=== PATIENT | male | born 1945 | race Caucasian/White ===

== ENCOUNTER 2023-08-22 15:27 | Inpatient (IN) ==
[2023-08-22] MEDS ORDERED: ONDANSETRON INJ 2 MG/ML 2 ML VIAL IV PRN (15:34)
[2023-08-22] MEDS ORDERED: diphenhydrAMINE 50 MG/ML VIAL IV PRN (15:34)
[2023-08-22] MEDS ORDERED: ACETAMINOPHEN 325 MG TAB PO PRN (16:18)
[2023-08-22] MEDS ORDERED: VANCOMYCIN CONSULT ACTIVE PRN (16:18)
[2023-08-22] MEDS: Patient's HEIGHT &/or WEIGHT Needed SCH ×2 (18:28→21:45)
[2023-08-22] MEDS: SODIUM CHLORIDE 0.9% 1,000 ML IV SCH (18:28)
[2023-08-22] MEDS: oxyCODONE HCL IR 5 MG TAB (IMMEDIATE RELEASE) PO PRN (18:37)
--- NOTE | 2023-08-22 20:26 | Consultation ---
Date of Consultation August 22, 2023 Assessment & Plan (1) Infection of prosthetic left knee joint: (2) Bacteremia: Patient is 78 y/o M with PMH HTN, HLD, CKD III, bladder cancer, prostate cancer s/p radiation seen in medical consultation for medical management. Was transfer from [facility] for left knee septic joint, bacteremia on preliminary blood cultures. [facility] ER 2 sets of blood cultures with preliminary readings of Gram-positive cocci in pairs and chains in both bottles. Left knee synovial fluid: Preliminary culture gram-positive cocci in chains. Was given Zosyn, vancomycin at [facility] ER Currently patient hemodynamically stable, afebrile, BP: 132/70, R: 18, O2 sat 97% on RA, and appears appropriately resuscitated Will need to follow outpatient blood cultures and synovial fluid for final results Will repeat blood cultures in am Continue vancomycin, zosyn Gentle IVF Pain management per ortho NPO midnight Ortho planning on wash out tomorrow am CBC, BMP in am ID consult (3) Left wrist pain: Patient complained of left wrist discomfort and some edema Ortho had ordered wrist x-ray. Will need to follow results Monitor wrist/hand for any erythema or signs of infection (4) HTN (hypertension): Stable Continue diltiazem, hold HCTZ and losartan as patient getting procedure tomorrow morning. Reevaluate tomorrow for consideration of resuming (5) HLD (hyperlipidemia): Continue rosuvastatin (6) CKD (chronic kidney disease), stage III: Cr: 1.2 on labs at [facility] ER today. Baseline creatinine ~1.1 Monitor renal functions, avoid nephrotoxic agents when able (7) Prostate cancer: (8) Bladder cancer: Follows with urology DVT Prophylaxis SCDs per ortho Full Code as per discussion with pt Follows with Gladys Peres PA-C for routine care Pt was seen and care coordinated with Dr Dewitt. See addendum Thank you for this consultation. We will follow the patient with you during their hospital stay. You can reach a [facility] via [facility] Supervising Physician Co-Signing Physician Notes I have seen and discussed the case with the collaborating VIRAL. I agree with the above H&P. I have reviewed and confirmed the patients medical history, the findings on physical examination, and the patients diagnosis and treatment plan with Bandar STRATTON and agree with the information documented. In short, Mr. Latham is a 78 year old with history of bilateral knee replacement with polyexchange on 07/[address] Vanegas. He was found to have septic arthritis, and now bacteremia with 2/2 cultures + for anaerobes at [facility]. Patient admitted under ortho for washout planned 08/23 with medicine comanagement consulted. Since knee exchange, patient reports recovering well until 08/21 when he felt fatigued and sickly. He reports a likely fall as he was sitting, then awoke on the ground. The evening was marked by chills and subjective fevers, prompting presentation to [facility]. Of note patient underwent C-Scope on 08/20, as possible seeding source for bacteremia? Physical exam Constitutional: weak, but pleasant gentleman, lethargic on exam HEENT: PERRLA, MMM CV: RRR, no murmur RESP: CTABL GI NTND BS+ MSK Left knee with surgical incision well approximated, diffuse tight edema, small area of erythema at superior aspect on surgical incision Left metacarpal/swelling edema, ROM limited 2/2 pain SKIN hot, dry #Left septic joint, left knee #Sepsis #Bacteremia 2/2 anerobic organisms -[facility] with blood cultures 2/2 + anerobes, follow up in infections -Continue vanc zosyn -Repeat blood culutres in am -Monitor pain in left wrist to ensure no seeding of joint; follow up wrist xray -ID consult placed, appreciate recs Rest of plan as above History of Present Illness Requesting Physician: Dr Vanegas Reason for Consultation: medical management Attending Physician: Calderon Vanegas MD History of Present Illness Patient is 78 y/o M with PMH HTN, HLD, CKD III, bladder cancer, prostate cancer s/p radiation seen in medical consultation for medical management. History obtained from patient as well as outpatient chart review. Patient states history bilateral knee replacement by Dr Vanegas in 2009. States had left knee procedure he thinks possibly 5 to 6 weeks ago. Patient states yesterday was not feeling well and had chills and nausea and felt very fatigued. Reports he stood up and walked and had possible syncopal episode and had a fall yesterday. States this morning continue to not feel well and have chills and had another fall after ambulating to bathroom. He thinks he passed out. Denies feeling dizziness, chest pain, shortness of breath prior to fall but states felt unwell and fatigued with ambulating. States fell onto left knee. Patient reports having left knee pain. Noticed edema to left knee and daughter noted knee was warm to the touch today. He presented to [facility] ER this morning and upon presentation there he had P108, BP 148/65, T: 100.6 F, O2: 98% on RA. Initial labs WBC of 7.15, H/H: 12.4/36.7, PLT: 142, K: 3.5, BUN: 33, Cr: 1.2, glucose: 141, lactate: 1.4. There CXR with no acute cardiopulmonary findings. Left knee x-ray with no periprosthetic fracture, soft tissue swelling anterior knee with small focus soft tissue gas. CT head showed no acute intracranial abnormality. In ER had 2 sets of blood cultures with preliminary readings of Gram-positive cocci in pairs and chains in both bottles. Left knee synovial fluid: Preliminary culture gram-positive cocci in chains. Was given Zosyn, vancomycin. He was transferred to [facility] for Dr Vanegas to perform wash out procedure. Currently patient states feels tired but feels much better than he did this morning. Denies current chills, diaphoresis, N/V/D/C, JERONIMO, dizziness, neck pain, CP, SOB, palpitations, cough, sore throat, rhinorrhea, abdominal pain, paresthesias, extremity edema, rashes, dysuria, hematuria. Has chronic urinary incontinence. Allergies Allergy/AdvReac Type Severity Reaction Status Date / Time No Known Allergies Verified 12/22/09 14:59 Home Medications Medication Instructions Recorded Confirmed Type aspirin 81 mg capsule,delayed 81 mg PO DAILY 08/22/23 08/22/23 History release diltiazem HCl 360 mg 360 mg PO DAILY 08/22/23 08/22/23 History capsule,extended release 24 hr hydrochlorothiazide 25 mg tablet 25 mg PO DAILY 08/22/23 08/22/23 History losartan 100 mg tablet 100 mg PO DAILY 08/22/23 08/22/23 History bbruevrp-eannloly-bwkoi acid 400 1 tab PO DAILY 08/22/23 08/22/23 History mcg-vit K 20 mcg-lycop 300 mcg tablet naproxen 500 mg tablet 500 mg PO BID PRN Pain 08/22/23 08/22/23 History rosuvastatin 10 mg tablet 10 mg PO HS 08/22/23 08/22/23 History Patient History Medical History (Updated 08/22/23 @ 22:42 by Lola Portillo PA-C) Bladder cancer Prostate cancer CKD (chronic kidney disease), stage III HLD (hyperlipidemia) HTN (hypertension) Surgical History (Updated 08/22/23 @ 21:18 by Lola Portillo PA-C) History of cystoscopy Hx of colonoscopy 08/20/23: Dr Cates History of appendectomy History of knee replacement Right knee. 2009. Dr Vangeas Left knee: 2009. Dr Vanegas Family History (Updated 08/22/23 @ 21:16 by Lola Portillo PA-C) Other Cancer Social History (Updated 08/22/23 @ 21:23 by Lola Portillo PA-C) Smoking Status: Never smoker Hx Alcohol Use: No Hx Substance Use: No Preferred Language: Sinhala Communication Ability: Effective Apparel Rental Clerk Required: No Beliefs That Will Affect Care: None Current Living Situation: Spouse Feels Safe at Home: Yes Safety Concerns: Feels Safe At This Time Physical Exam Physical Exam: PE per Dr Dewitt Results & Data Vital Signs (Past 12 Hours) Vital Signs Temp Resp BP Pulse Ox O2 Del Method 08/22/23 21:20 36.6 C 18 132/70 97 Room Air Intake and Output 08/22/23 08/22/23 08/22/23 06:59 14:59 22:59 Other: Weight 82.2 kg Weight Measurement Method Built in [facility] Patient Weight 08/23/23 06:59 Weight 82.2 kg
[2023-08-22 20:57] LABS: Creatinine Clr Calc Pharmacy 44.2 ml/min; Est GFR (African American) 55.5 ml/min; Est GFR (Non-African American) 47.9 ml/min
[2023-08-22] MEDS: DOCUSATE SODIUM 100 MG CAP PO SCH (21:19)
[2023-08-22] MEDS ORDERED: VANCOMYCIN HCL 1,250 MG in SODIUM CHLORIDE 0.9% 250 ML IV SCH (22:00)
--- OUTSIDE RECORDS SUMMARY | 2023-08-22 22:25 | External Medical Summary ---
Author Name Unknown Address Unknown Organization K1F:LABORATORY [facility] - [address] [place] [address] Laboratory Report Ordering Provider Test Date Status JENSEN CRUZ 08/22/2023 08:16:00 Final Observation Date Value Abnormality Reference (Units ) Status Troponin T 08/22/2023 08:16:00 41 Above high normal < =22 (ng/L) Final Performing Location LABORATORY [facility] - [address] [place] [address]
--- OUTSIDE RECORDS SUMMARY | 2023-08-22 22:25 | External Medical Summary ---
Author Name Unknown Address Unknown Organization K1F:LABORATORY [facility] - [address] [place] [address] Laboratory Report Ordering Provider Test Date Status JENSEN CRUZ 08/22/2023 09:05:51 Final Reference ranges are for rolando nts without prior surgery. Some reference ranges and other method performance specifications have not been established for this fluid. The test results must be integrated into the clinical context for interpretation.
null Observation Date Value Abnormality Reference (Units ) Status Color of Body fluid 08/22/2023 09:05:51 Red Abnormal Straw, Yellow, Colorless Final Clarity of Body fluid 08/22/2023 09:05:51 Turbid Abnormal Clear Final Leukocytes [#/volume] in Synovial fluid 08/22/2023 09:05:51 [address] Above high normal 0-180 (cells/uL) Final Erythrocytes [#/volume] in Synovial fluid 08/22/2023 09:05:51 [address] Above high normal <2000 (cells/uL) Final Performing Location LABORATORY [facility] - [address] [place] [address]
--- OUTSIDE RECORDS SUMMARY | 2023-08-22 22:25 | External Medical Summary ---
Author Name Unknown Address Unknown Organization K1F:LABORATORY [facility] - [address] [place] [address] Laboratory Report Ordering Provider Test Date Status JENSEN CRUZ 08/22/2023 08:16:00 Final Exclude Heart Failure: <300 pg/mL
Diagnose Heart Failure:
Age <50 yr: >450 pg/mL
50-75 yr: >900 pg/mL
>75 yr: >1800 pg/mL
GFR is 30-59 mL/min: >1200 pg/mL or Age- adjusted values
GFR <30 mL/min: do not use, not reliable

Prognostic threshold: 1000 pg/mL Observation Date Value Abnormality Reference (Units ) Status BNP, Pro-hormone 08/22/2023 08:16:00 1150 Above high no rmal <300 (pg/mL) Final Performing Location LAB[facility]ATORY [facility] - [address] [place] [address]
--- OUTSIDE RECORDS SUMMARY | 2023-08-22 22:25 | External Medical Summary ---
Author Name Unknown Address Unknown Organization K1F:LABORATORY [facility] - [address] [place] [address] Laboratory Report Ordering Provider Test Date Status JENSEN CRUZ 08/22/2023 08:16:00 Final Less than 0.5 ng/mL: Low ris k for progression to sepsis. Review patients condition for localized infections.

0.5 to 2.0 ng/mL: Intermediate risk for progresion to sepsis. Review underlying conditions. Recommend repeat PCT after 6 hours has elapsed.

Greater than 2.0 ng/mL: high risk for progression to sepsis unless other causes are known. Observation Date Value Abnormality Reference (Units ) Status Procalcitonin [Mass/volume] in Serum or Plasma by Immunoassay 08/22/2023 08:16:00 3.94 Above high normal <0.10 (ng/mL) Final Performing Location LABORATORY [facility] - [address] [place] [address]
--- OUTSIDE RECORDS SUMMARY | 2023-08-22 22:25 | External Medical Summary ---
Author Name Unknown Address Unknown Organization K1F:LABORATORY [facility] - [address] [place] [address] Laboratory Report Ordering Provider Test Date Status JENSEN CRUZ 08/22/2023 08:16:00 Final Observation Date Value Abnormality Reference (Units ) Status CRP, low-sensitivity 08/22/2023 08:16:00 180 Above high normal <=5 (mg/L) Final Performing Location LAB[facility]ATORY [facility] - [address] [place] [address]
--- OUTSIDE RECORDS SUMMARY | 2023-08-22 22:25 | External Medical Summary ---
Author Name Unknown Address Unknown Organization K1F:LABORATORY [facility] - [address] [place] [address] Laboratory Report Ordering Provider Test Date Status JENSEN CRUZ 08/22/2023 08:16:00 Final Observation Date Value Abnormality Reference (Units ) Status CK 08/22/2023 08:16:00 220 39-308 (U/ L) Final Performing Location LABORATORY [facility] - [address] [place] [address]
--- OUTSIDE RECORDS SUMMARY | 2023-08-22 22:25 | External Medical Summary ---
Author Name Unknown Address Unknown Organization K1F:LABORATORY [facility] - [address] [place] [address] Laboratory Report Ordering Provider Test Date Status JENSEN CRUZ 08/22/2023 08:16:00 Final Observation Date Value Abnormality Reference (Units ) Status WBC, Total 08/22/2023 08:16:00 7.15 4.00-10.80 (K/uL) Final RBC 08/22/2023 08:16:00 4.13 4.50-5.25 (M/uL) Final Hemoglobin 08/22/2023 08:16:00 12.4 Below low normal 14.0-16.8 (g/dL) Final HCT 08/22/2023 08:16:00 36.7 Below low normal 40.0-48.4 (%) Final MCV 08/22/2023 08:16:00 88.9 82.0-99.5 (fL) Final MCH 08/22/2023 08:16:00 30.0 27.0-34.0 (pg) Final MCHC 08/22/2023 08:16:00 33.8 32.0-36.0 (g/dL) Final RDW 08/22/2023 08:16:00 13.1 11.5-15.5 (%) Final Platelets 08/22/2023 08:16:00 142 140-400 (K/uL) Final MPV 08/22/2023 08:16:00 9.9 6.6-11.1 (fL) Final Nucleated erythrocytes/100 leukocytes [Ratio] in Blood by Automated count 08/22/2023 08:16:00 0 <=0 (/100 WBCs) Final Performing Location LABORATORY [facility] - [address] [place] [address]
--- OUTSIDE RECORDS SUMMARY | 2023-08-22 22:25 | External Medical Summary ---
Author Name Unknown Address Unknown Organization K1F:LABORATORY [facility] - [address] [facility] [place] [address] Laboratory Report Ordering Provider Test Date Status JENSEN CRUZ 08/22/2023 08:16:00 Final Observation Date Value Abnormality Reference (Units ) Status SYNC LEUKOCYTES IN BLOOD BY AUTOMATED COUNT 08/22/2023 08:16:00 7.15 4.00-10.80 (K/uL) Final Segs 08/22/2023 08:16:00 93.1 Above high normal 40.0-75.0 (%) Final Lymphs % 08/22/2023 08:16:00 2.5 Below low normal 18.0-42.0 (%) Final Monos 08/22/2023 08:16:00 3.9 1.0-11.0 (%) Final Eosinophils 08/22/2023 08:16:00 0.0 0.0-6.0 (%) Final Basos 08/22/2023 08:16:00 0.1 0.0-2.0 (%) Final Immature Granulocyte, Percent 08/22/2023 08:16:00 0.4 0.0-2.0 (%) Final Absolute Segs 08/22/2023 08:16:00 6.65 1.80-7.70 (K/uL) Final Lymphs, absolute 08/22/2023 08:16:00 0.18 Below low normal 1.00-4.80 (K/ul) Final Monos, Abs 08/22/2023 08:16:00 0.28 0.00-1.10 (K/uL) Final Eos, Abs 08/22/2023 08:16:00 0.00 0.00-0.70 (K/uL) Final Basos, Abs 08/22/2023 08:16:00 0.01 0.00-0.20 (K/uL) Final Immature Granulocytes, Number 08/22/2023 08:16:00 0.03 0.00-0.20 (K/uL) Final Performing Location LABORATORY [facility] - [address] [place] [address]
--- OUTSIDE RECORDS SUMMARY | 2023-08-22 22:25 | External Medical Summary | Summary of Care ---
Author Name Unknown Organization [facility] Address [address] [place] [address] Phone [phone] Care Team Providers Care Manager In Home Name Role Phone Gladys Peres PA-C Primary Care Provider Reason for Visit * Auth/Cert Specialty Diagnoses / Procedures Referred By Jose Guadalupe t Referred To Contact Diagnoses Encounter for screening colonoscopy Encounter for screening colonoscopy [Z12.11] Procedures COLONOSCOPY, DIAGNOSTIC (RECTUM) COLONOSCOPY FLEXIBLE PROXIMAL DIAGNOSTIC Referral ID Status Reason Start Date Expiration Date Visits Re quested Visits Authorized [id number] Encounter Details Date Type Department Care Team (Latest Contact Info) Description 08/20/2023 8:27 AM EST - 08/20/2023 10:18 AM EST Hospital Encounter [facility]O [facility] End[facility] [address] [phone] Marta Cates DO [address] [place] [id number] Colonoscopy Discharge Disposition: Home - Self Care Allergies No known active allergiesdocumented as of this encounter (statuses as of 08/20/2023) Medications Medication Sig Dispensed Refills Start Date End Date Status Diclofenac Sodium (VOLTAREN) 1 % gel apply 2gm topically to affected area three times a day 2 Tube 5 04/24/20 17 Active Multiple Vitamins-Minerals (MULTIVITAMIN ADULT) TABS 0 Active Aspirin 81 MG Oral Tablet Delayed Release Take 1 Tablet by mouth in the morning. Starting 09/04/2019. 0 12/31/20 20 Active hydroCHLOROthiazide 25 MG Oral Tablet (Hydrodiuril)Indication s:HTN, goal below 150/90 Take 1 Tablet by mouth in the morning. 90 Tablet 3 10/29/19 Active Naproxen 500 MG Oral Tablet (Naprosyn) TAKE ONE TABLET BY MOUTH TWICE A DAY NEEDED FOR PAIN. TAKE WITH FOOD. 180 Tablet 1 01/21/20 Active dilTIAZem HCl ER Coated Beads 360 MG Oral Capsule Extended Release 24 HourIndications:HTN, goal below 150/90 TAKE ONE CAPSULE BY MOUTH EVERY MORNING ;DO NOT CUT, CRUSH, OR CHEW 90 Capsule 3 04/23/20 Active Losartan Potassium 100 MG Oral Tablet (Cozaar)Indications:HTN , goal below 150/90 TAKE ONE TABLET BY MOUTH EVERY MORNING 90 Tablet 3 04/23/20 Active Rosuvastatin Calcium 10 MG Oral Tablet (Crestor)Indications:Pu re hypercholesterolemia TAKE ONE TABLET BY MOUTH AT BEDTIME FOR HIGH CHOLESTEROL 90 Tablet 1 05/19/20 Active Naproxen 500 MG Oral Tablet (Naprosyn) TAKE ONE TABLET BY MOUTH TWICE A DAY NEEDED FOR PAIN. TAKE WITH FOOD. 180 Tablet 3 01/11/20 22 2022 Discontinued(R efill) dilTIAZem HCl ER Coated Beads 360 MG Oral Capsule Extended Release 24 Hour (Cardizem CD)Indications:HTN, goal below 150/90 Take by mouth 1 Capsule in the morning. do not cut, crush or chew. 90 Capsule 3 04/24/20 22 2022 Discontinued Rosuvastatin Calcium 10 MG Oral Tablet (Crestor)Indications:Pu re hypercholesterolemia Take by mouth 1 Tablet before bedtime. For cholesterol.. 90 Tablet 3 04/24/20 22 2022 Discontinued Losartan Potassium 100 MG Oral Tablet (Cozaar)Indications:HTN , goal below 150/90 Take by mouth 1 Tablet in the morning. 90 Tablet 3 04/24/20 22 2022 Discontinued Oxybutynin Chloride ER 10 MG Oral Tablet Extended Release 24 Hour (Ditropan XL) Take one tablet by mouth the night prior to treatment. 0 05/21/20 22 2022 Discontinued(P atient preference/dis continuation) Oxybutynin Chloride 5 MG Oral Tablet (Ditropan) Take one tablet by mouth one hour prior to treatment. 0 05/21/20 22 2022 Discontinued(P atient preference/dis continuation) documented as of this encounter (statuses as of 08/20/2023) Active Problems Problem Noted Date Diagnosed Date Right inguinal hernia 10/29/2022 Prediabetes 09/10/2021 Overview: Per Prediabetes protocol Chronic kidney disease, stage 3a 03/12/2021 Overview: Per CKD protocol Mitral valve insufficiency and aortic valve insu fficiency 03/19/2017 Transitional cell bladder cancer 08/27/2016 Lumbar degenerative disc disease 02/16/2015 Pure hypercholesterolemia History of prostate cancer HTN, goal below 150/90 documented as of this encounter (statuses as of 08/20/2023) Resolved Problems Problem Noted Date Diagnosed Date Resolved Date Syncope and collapse 05/23/2019 019 Gross hematuria 05/21/2019 05/24/[address] 05/21/201905/04 Syncopal episodes 05/21/2019 05/23/2019 Malignant neoplasm of bladder 03/10/2018 03/10/2018 MINE (acute kidney injury) 01/17/2017 Syncope due to orthostatic hypotension 01/17/2017 09/10/2017 Dehydration 01/17/2017 09/10/2017 documented as of this encounter (statuses as of 08/20/2023) Immunizations Name Administration Dates Next Due COVID-19 mRNA, LNP-s, No Pre serve, 2-Dose Series (Car reviews) 06/23/2021,11/21/2020,10/26/2020 Pneumococcal Conjugate Vacc, 13 Valent (Prevnar) 02/22/2016 Pneumococcal Polysaccharide PPV23 (Pneumovax) 03/05/2017 Season Influenza, Quad, PF, Adjuvanted, 65+ Yrs, IM (FLUAD) 08/06/2021 Seasonal Influenza, PF, 6 M & above, IM , (FluLaval or Fluzone) 09/10/2018 Seasonal Influenza, Quadriva lent Hd (Fluzone Hd) 06/03/2023,08/06/2021 Seasonal Influenza, Quadriva lent Hd, 65+ Yrs 09/10/2018 Seasonal Influenza, Quadriva lent, No Preserve, IM 06/07/2020 Seasonal Influenza, Trivalen t, Adjuvanted, 65+ yrs 05/19/2019 TDAP (age 11 and older)(Adacel) 02/24/2015 02/24/2025 Varicella Zoster Vaccine (Adult) 02/22/2016 Zoster Vaccine Recombinant (Shingrix) 10/11/2020 ,04/26/2020 documented as of this encounter Social History Tobacco Use Types Packs/Day Years Used Date Smoking Tobacco: Never Smokeless Tobacco: Never Alcohol Use Standard Drinks/Week Comments No 0 (1 standard drink = 0.6 oz pur e alcohol) PHQ-2 Answer Date Recorded PHQ Adult Total Score 0 06/27/2023 Hunger Vital Sign Answer Date Recorded Within the past 12 months, y ou worried that your food would run out before you got the money to buy more. Never true 10/29/19 23 Within the past 12 months, t he food you bought just didn't last and you didn't have money to get more. Never true 10/29/2022 Sex and Gender Information Value Date Recorded Sex Assigned at Male 03/15/2019 10:44 AM EDT Gender Identity Male 03/15/2019 10:44 AM EDT Sexual Orientation Straight 03/15/2019 10 :44 AM EDT Job Start Date Occupation Industry Not on file Not on file Not on file documented as of this encounter Last Filed Vital Signs Vital Sign Reading Time Taken Comments Blood Pressure 169/89 08/20/2023 10:08 AM EST Pulse 73 08/20/2023 10:08 AM EST Temperature 36.2 C (97.2 F) 08/20/2023 9:38 AM ES T Respiratory Rate 16 08/20/2023 10:08 AM EST Oxygen Saturation 97% 08/20/2023 10:08 AM EST Inhaled Oxygen Concentration - - Weight 84.8 kg (187 lb) 08/07/2023 1:32 PM EST Height 170.2 cm (5' 7") 08/07/2023 1:32 PM EST Body Mass Index 29.29 08/07/2023 1:32 PM EST documented in this encounter Functional Status Functional Status Response Date of Assess ment Are you deaf or do you have serious difficulty h earing? No 05/21/2019 Are you blind or do you have serious difficulty seeing, even when wearing glasses? No 05/21/2019 Do you have serious difficul ty walking or climbing stairs? (5 years old or older) No 08/28/2020 Do you have difficulty dress ing or bathing? (5 years old or older) No 05/21/2019 Because of a physical, menta l, or emotional condition, do you have difficulty doing errands alone such as visiting a doctor s office or shopping? (15 years old or older) No 05/21/20 19 Cognitive Status Response Date of Assessm ent Because of a physical, menta l, or emotional condition, do you have serious difficulty concentrating, remembering, or making decisions? (5 years old or older) No 05/21/2019 documented as of this encounter H&P Notes * Marta Cates, DO - 08/20/2023 8:56 AM EST Endoscopy Pre-Procedure Assessment Name: Vincent Latham Jr. Date: 08/20/2023 Time: 8:56 AM Procedure: Colonoscopy; with Indication(s) of colon polyp surveillance Endoscopy Pre-Procedure Assessment: Prior to the procedure, the patient was identified. The patient's history, medications and allergies were reviewed as per the Anesthesia Assessment. The patient is competent. The risks and benefits of the proposed procedure and the planned sedation were discussed with the patient. All questions were answered and informed consent for the procedure was obtained. This patient has undergone a preprocedural evaluation. A determination has been made to proceed with the planned procedure under [facility] procedural guidelines and the [facility] Non-Emergent, Elective Medical Services and Treatment Recommendations (published on 12-07-19). The community and hospital prevalence of COVID-19 has been discussed as well as this patient's specific risks associated with SARS-CoV-19 infection. Based upon the clinical acuity and patient-specific care considerations, this procedure is deemed a Tier II - Intermediate acuity treatment or service with either progression or the threat of progressive disease related to the delay in treatment. Not providing the service has the potential for increasing morbidity or mortality. BP 177/82 | Pulse 78 | Temp 36.2 C (97.2 F) (Temporal Artery) | Resp 14 | Ht 1.702 m (5' 7") | Wt 84.8 kg (187 lb) | SpO2 95% | BMI 29.29 kg/m | BSA 2 m Prior to Admission medications Medication Sig Last Dose Discont. Rosuvastatin Calcium 10 MG Oral Tablet (Crestor) TAKE ONE TABLET BY MOUTH AT BEDTIME FOR HIGH CHOLESTEROL 08/19/2023 dilTIAZem HCl ER Coated Beads 360 MG Oral Capsule Extended Release 24 Hour TAKE ONE CAPSULE BY MOUTH EVERY MORNING ;DO NOT CUT, CRUSH, OR CHEW 08/19/2023 Losartan Potassium 100 MG Oral Tablet (Cozaar) TAKE ONE TABLET BY MOUTH EVERY MORNING 08/19/2023 Naproxen 500 MG Oral Tablet (Naprosyn) TAKE ONE TABLET BY MOUTH TWICE A DAY NEEDED FOR PAIN. TAKE WITH FOOD. 08/19/2023 hydroCHLOROthiazide 25 MG Oral Tablet (Hydrodiuril) Take 1 Tablet by mouth in the morning. 08/19/2023 Aspirin 81 MG Oral Tablet Delayed Release Take 1 Tablet by mouth in the morning. Starting 09/04/2019. 08/19/2023 Multiple Vitamins-Minerals (MULTIVITAMIN ADULT) TABS 08/19/2023 Diclofenac Sodium (VOLTAREN) 1 % gel apply 2gm topically to affected area three times a day 08/19/2023 Acetaminophen 500 MG Oral Tablet (Tylenol) Take 2 Tablets by mouth every 4 hours as needed. Review of patient's allergies indicates: No Known Allergies Physical Exam: Mental Status Examination: alert and oriented. General: nad, calm Airway Examination: normal oropharyngeal airway and neck mobility. Respiratory Examination: symmetrical excursion Abd:soft/ntd ASA Grade: III - A patient with severe systemic disease. After reviewing the risks and benefits, the patient was deemed in satisfactory condition to undergothe procedure. The anesthesia plan was to use general anesthesia. Marta Cates DO Gastroenterology and Hepatology 08/20/2023 documented in this encounter Procedure Notes * Gladys Peres PA-C - 08/20/2023 8:57 AM ESTAssociated Order(s): COLONOSCOPY [facility] Patient Name: Vincent Latham Procedure Date: 08/20/2023 8:57 AM Date of : 1945 Admit Type: Outpatient Note Status: Finalized Date of : 1945 Admit Type: Outpatient Age: 78 Room: Endo 1 Gender: Male Note Status: Finalized Procedure: Colonoscopy Indications: High risk colon cancer surveillance: Personal history of colonic polyps Providers: Marta Cates DO (Doctor) Patient Profile: This is a 78 year old male. Refer to note in patient chart for documentation of history and physical. Referring MD: [place] Medicines: General Anesthesia Complications: No immediate complications. Procedure: Pre-Anesthesia Assessment: - Prior to the procedure, a History and Physical was performed, and patient medications and allergies were reviewed. The risks and benefits of the procedure and the sedation options and risks were discussed with the patient. All questions were answered and informed consent was obtained. Patient identification and proposed procedure were verified by the physician, the nurse and the gage designer in the procedure room. Mental Status Examination: alert and oriented. Airway Examination: Mallampati Class II (the uvula but not tonsillar pillars visualized). Respiratory Examination: clear to auscultation. CV Examination: RRR, no murmurs, no S3 or S4. Prophylactic Antibiotics: The patient does not require prophylactic antibiotics. Prior Anticoagulants: The patient has taken no anticoagulant or antiplatelet agents except for aspirin. ASA Grade Assessment: III - A patient with severe systemic disease. After reviewing the risks and benefits, the patient was deemed in satisfactory condition to undergo the procedure. The anesthesia plan was to use general anesthesia. Immediately prior to administration of medications, the patient was re-assessed for adequacy to receive sedatives. The physical status of the patient was re-assessed after the procedure. After I obtained informed consent, the scope was passed under direct vision. All instruments were visually inspected immediately before and after removal from the patient to ensure they are fully intact. Throughout the procedure, the patient's blood pressure, pulse, and oxygen saturations were monitored continuously. The colonoscopy was performed without difficulty. The patient tolerated the procedure well. The quality of the bowel preparation was good. The PCF-H180AL Colonoscope ([id number]) was introduced through the anus and advanced to the cecum, identified by appendiceal orifice and ileocecal valve. Findings & Specimens: The perianal and digital rectal examinations were normal. Multiple small and large-mouthed diverticula were found in the left colon. There was narrowing of the colon in association with the diverticular opening. The retroflexed view of the distal rectum and anal verge was normal and showed no anal or rectal abnormalities. Impression: - Diverticulosis in the left colon. There was narrowing of the colon in association with the diverticular opening. - No specimens collected. Recommendation: - Patient has a contact number available for emergencies. The signs and symptoms of potential delayed complications were discussed with the patient. Return to normal activities tomorrow. Written discharge instructions were provided to the patient. - The patient will be observed post-procedure, until all discharge criteria are met. - Discharge patient to home (with escort). - Resume previous diet. - Continue present medications. - Repeat colonoscopy for surveillance not recommended given patient's age. Marta Cates DO 08/20/2023 9:35:55 AM This report has been signed electronically. Estimated Blood Loss: Estimated blood loss: none. documented in this encounter Nursing Notes * Daylin Schulte RN - 08/20/2023 10:12 AM EST To car with staff and * Daylin Schulte RN - 08/20/2023 10:11 AM EST Dressing at bedside. Pt BP elevated and will take meds when get home * Daylin Schulte RN - 08/20/2023 9:51 AM EST Reviewed discharge instructions and procedure results with pt. Med list and discharge instructions given. Verbalizes understanding and denies any other questions or concerns. Sat up at side of stretcher. * Daylin Schulte RN - 08/20/2023 9:49 AM EST HOB elevated, tolerating drink Glasses returned to patient.Glasses returned to pt * Daylin Schulte RN - 08/20/2023 9:40 AM EST Pt received in recovery S/P colonscopy. Pt awake and resting on left side. Pt denies pain. Abd softReport received from Melba ORNELAS. VSS. Airway patent. * Melba Gorman RN - 08/20/2023 9:34 AM EST Colonoscopy completed. Abdominal pressure given. Pt nestor procedure well. Sedated by SEQUINS SPOOLER. See anesthesia record for VS and medications given. Abd soft. Airway patent. Pt to recovery on L side with HOBelevated. Report to recovery room nurse. Bedside cleaning done. * Lizz Jackson RN - 08/20/2023 8:34 AM EST Nursing assessment completed. Pt awaiting procedure. Declines any needs. Anesthesia made aware pt ready to be seen. documented in this encounter Plan of Treatment Upcoming Encounters Date Type Department Care Team (Late st Contact Info) Description 02/12/2024 7:40 AM EDT Office Visit [facility] [address] [place] [id number] Gladys Peres PA-C [address] [place] [id number] Scheduled Procedures Name Priority Associated Diagnoses Date/Ti me COLONOSCOPY FLEXIBLE PROXIMAL DIAGNOSTIC Encounter for screening colonoscopy 08/20/2023 9:05 AM EST Health Maintenance Due Date Last Done Comments COVID-19 Vaccine ( season) 2023 06/23/2021, 11/21/2020, 10/26/2020 GFR 02/11/2024 08/12/2023, 09/2022, 06/20/2023, Additional history exists Albumin/Creatinine Ratio 06/03/2024 06/03/2023 Depression Screening 06/27/2024 06/27/2023 CKD HGB USE SMARTSET 32886 08/01/202408/01, 08/01/2023, 06/20/2023, Additional history exists CKD PHOS USE SMARTSET 62595 08/01/202409/2022, 10/23/2022, 09/04/2021 HbA1c 08/01/2024 08/01/2023, 10/03, 09/04/2021, Additional history exists DTaP,Tdap,and Td Vaccines (2 - Td or Tdap) 02/24/2025 02/24/2015 COLONOSCOPY-EVERY 5 YRS AGES 18-100 08/20/2028 08/20/2023, 10/01/2017, 03/31/2012 Pneumococcal Vaccine: 65+ Years Completed 03/05/2017, 02/22/2016 Zoster Vaccines Completed 10/11/2020, 04/02, 02/22/2016 Influenza Vaccine (FLU shot) Completed 10/2022, 08/06/2021, 08/06/2021, Additional history exists GARDASIL-HPV IMMUNIZATION SERIES Aged Out No longer eligible based on patient's age to complete this topic Hepatitis B Aged Out No longer eligi ble based on patient's age to complete this topic MENINGOCOCCAL (MENACTRA/MENVEO) Aged Out No longer eligible based on patient's age to complete this topic documented as of this encounter Medical Devices Not on filedocumented as of this encounter Procedures Procedure Name Priority Date/Time Associated Diagnosis Comments COLONOSCOPY 08/20/2023 8:57 AM EST documented in this encounter Results * COLONOSCOPY (08/20/2023 8:57 AM EST) 08/20/2023 8:57 AM EST Narrative Procedure Note Gladys Peres PA-C - 08/20/2023 8:57 AM EST [facility] Patient Name: Vincent Latham Procedure Date: 08/20/2023 8:57 AM Date of : 1945 Admit Type: Outpatient Note Status:Finalized Date of : 1945 Admit Type: Outpatient Age: 78 Room: Endo 1 Gender: Male Note Status: Finalized Procedure: Colonoscopy Indications: High risk colon cancer surveillance: Personalhistory of colonic polyps Providers: Marta Cates DO (Doctor) Patient Profile: This is a 78 year old male. Refer to note inpatient chart for documentation of history and physical. Referring MD: [place] Clinton Medicines: General Anesthesia Complications: No immediate complications. Procedure: Pre-Anesthesia Assessment: - Prior to the procedure, a History and Physicalwas performed, and patient medications and allergies were reviewed. The risksand benefits of the procedure and the sedation options and risks were discussed withthe patient. All questions were answered and informed consent was obtained. Patientidentification and proposed procedure were verified by the physician, the nurseand the gage designer in the procedure room. Mental Status Examination: alertand oriented. Airway Examination: Mallampati Class II (the uvula but not tonsillarpillars visualized). Respiratory Examination: clear to auscultation. CV Examination:RRR, no murmurs, no S3 or S4. Prophylactic Antibiotics: The patient does notrequire prophylactic antibiotics. Prior Anticoagulants: The patient has taken noanticoagulant or antiplatelet agents except for aspirin. ASA Grade Assessment: III - Apatient with severe systemic disease. After reviewing the risks and benefits,the patient was deemed in satisfactory condition to undergo the procedure.The anesthesia plan was to use general anesthesia. Immediately prior toadministration of medications, the patient was re-assessed for adequacy to receive sedatives.The physical status of the patient was re-assessed after the procedure. After I obtained informed consent, the scope waspassed under direct vision. All instruments were visually inspected immediatelybefore and after removal from the patient to ensure they are fully intact. Throughout the procedure, the patient's bloodpressure, pulse, and oxygen saturations were monitored continuously. The colonoscopy wasperformed without difficulty. The patient tolerated the procedure well. The qualityof the bowel preparation was good. The PCF-H180AL Colonoscope ([id number]) was introducedthrough the anus and advanced to the cecum, identified by appendiceal orifice andileocecal valve. Findings & Specimens: The perianal and digital rectal examinations were normal. Multiple small and large-mouthed diverticula were found in the leftcolon. There was narrowing of the colon in association with the diverticular opening. The retroflexed view of the distal rectum and anal verge was normaland showed no anal or rectal abnormalities. Impression: - Diverticulosis in the left colon. There wasnarrowing of the colon in association with the diverticular opening. - No specimens collected. Recommendation: - Patient has a contact number available foremergencies. The signs and symptoms of potential delayed complications were discussed withthe patient. Return to normal activities tomorrow. Written discharge instructionswere provided to the patient. - The patient will be observed post-procedure,until all discharge criteria are met. - Discharge patient to home (with escort). - Resume previous diet. - Continue present medications. - Repeat colonoscopy for surveillance notrecommended given patient's age. Marta Cates, 08/20/2023 9:35:55 AM This report has been signed electronically. Estimated Blood Loss: Estimated blood loss: none. Gladys Peres PA-C [facility] documented in this encounter Administered Medications Inactive Administered Medications - up to 3 most recent administrations Medication Order MAR Action Action Date Dose Rate Site isolyte-S pH 7.4 infusion Intravenous, at 75 mL/hr, for Outpatient patient Plasma-LYTE 148, isolyte-S, and isolyte-S pH 7.4 are considered equivalent - including for MAR barcode scanning., CONTINUOUS, Starting on Fri08/20/23 at 0900, Until Fri08/20/23 at 1419, Pre-Op Continue from Pre-Op 08/20/2023 9:05 AM EST 250 mL/hr New Bag 08/20/2023 8:45 AM EST 75 mL/hr 75 mL/hr documented in this encounter Active and Recently Administered Medications Times are shown in EST. Continuous Medication Order 08/18/2023 08/19/2023 08/20/2023 isolyte-S pH 7.4 infusion Intravenous, at 75 mL/hr, for Outpatient patient Plasma-LYTE 148, isolyte-S, and isolyte-S pH 7.4 are considered equivalent - including for MAR barcode scanning., CONTINUOUS, Starting on Fri08/20/23 at 0900, Until Fri08/20/23 at 1419, Pre-Op 0845 (New Bag - Prov ider: Lizz Jackson RN)0905 (Continue from Pre-Op - Provider: Shari Elam CRNA)0933 (Stopped - Provider: Shari Elam CRNA) documented in this encounter Advance Directives Latest Code Status on File Code Status Date Activated Date Inactivated Comments Full Code 08/27/2020 3:43 PM 08/31/2020 7:27 PM Thi s order reflects the patients wishes and were consensually agreed upon. Question Answer Comments Discussion of Advance Directives occurred with: Not Discussed Does the patient have a Living Will? Yes, not currently available Does the patient have Health Care Power of Drop Wirer? Yes, not currently available Code Status History Code Status Date Activated Date Inactivated Comments Full Code 05/21/2019 5:39 PM 05/23/2019 5:52 PM This order reflects the patients wishes and were consensually agreed upon. Question Answer Comments Discussion of Advance Directives occurred with: Patient Full Code 02/05/2018 6:44 AM 02/05/2018 5:47 PM This or araseli reflects the patients wishes and were consensually agreed upon. Full Code 03/21/2017 11:11 AM 03/21/2017 5:53 PM This order reflects the patients wishes and were consensually agreed upon. Full Code 03/21/2017 7:58 AM 03/21/2017 11:11 AM This order reflects the patients wishes and were consensually agreed upon. Care Teams Manager In Home Relationship Specialty Start Date End Date Gladys Peres PA-C [address] [place] [phone] PCP - General Physician Registration Scheduling Specialist 02/26/21 documented as of this encounter
--- OUTSIDE RECORDS SUMMARY | 2023-08-22 22:25 | External Medical Summary ---
Author Name Unknown Address Unknown Organization K1F:LABORATORY [facility] - [address] [place] [address] Laboratory Report Ordering Provider Test Date Status JENSEN CRUZ 08/22/2023 09:05:51 Final Observation Date Value Abnormality Reference (Units) Status Color of Body fluid 08/22/2023 09:05:51 Red Abnormal Straw, Yellow, Colorless Final Clarity of Body fluid 08/22/2023 09:05:51 Turbid Abnormal Clear Final Crystals, Synovial Fluid 08/22/2023 09:05:51 Few Calcium Pyrophosphate Dihydrate Crystals Present Abnormal No Crystals Present Final Crystals, Synovial Fluid 08/22/2023 09:05:51 Few Calcium Pyrophosphate Dihydrate Crystals Present Abnormal No Crystals Present Final CELLULAR LOCATION OF CRYSTALS 08/22/2023 09:05:51 Extracellular Crystals Present Abnormal No Crystals Present Final Performing Location LABORATORY [facility] - [address] [place] [address]
--- OUTSIDE RECORDS SUMMARY | 2023-08-22 22:25 | External Medical Summary ---
Author Name Unknown Address Unknown Organization K1F:LABORATORY [facility] - [address] [place] [address] Laboratory Report Ordering Provider Test Date Status JENSEN CRUZ 08/22/2023 09:05:51 Final Reference ranges are for rolando nts without prior surgery. Some reference ranges and other method performance specifications have not been established for this fluid. The test results must be integrated into the clinical context for interpretation. Observation Date Value Abnormality Reference (Units ) Status SYNC TOTAL NUCLEATED CELLS, SYNOVIAL 08/22/2023 09:05:51 05341 (cells/uL) Final Segmented neutrophils/100 leukocytes in Synovial fluid 08/22/2023 09:05:51 98 Above high normal 0-25 (%) Final Lymphocytes/100 leukocytes in Synovial fluid 08/22/2023 09:05:51 1 0-78 (%) Final Monocytes/100 leukocytes in Synovial fluid 08/22/2023 09:05:51 1 0-71 (%) Final SEGMENTED NEUTROPHILS (1000/UG) IN SYNOVIAL FLUID ABS 08/22/2023 09:05:51 74176.64 (cells/uL) Final LYMPHOCYTES (1000/UG) IN SYNOVIAL FLUID ABS 08/22/2023 09:05:51 429.18 (cells/uL) Final MONOCYTES(1000/UG) IN SYNOVIAL FLUID ABS 08/22/2023 09:05:51 429.18 (cells/uL) Final Performing Location LABORATORY [facility] - [address] [facility] [address] [place] [address]
--- OUTSIDE RECORDS SUMMARY | 2023-08-22 22:25 | External Medical Summary ---
Author Name Unknown Address Unknown Organization K1F:LABORATORY [address] [place] [address] Laboratory Report Ordering Provider Test Date Status JENSEN CRUZ 08/22/2023 08:21:55 Final ADMITTED patient Observation Date Value Abnormality Reference (Units ) Status Adenovirus DNA [Presence] in Nasopharynx by KYLE with non-probe detection 08/22/2023 08:21:55 Negative Negative Final Human coronavirus 229E RNA [Presence] in Nasopharynx by KYLE with non-probe detection 08/22/2023 08:21:55 Negative Negative Final Human coronavirus HKU1 RNA [Presence] in Nasopharynx by KYLE with non-probe detection 08/22/2023 08:21:55 Negative Negative Final Human coronavirus NL63 RNA [Presence] in Nasopharynx by KYLE with non-probe detection 08/22/2023 08:21:55 Negative Negative Final Human coronavirus OC43 RNA [Presence] in Nasopharynx by KYLE with non-probe detection 08/22/2023 08:21:55 Negative Negative Final SARS-CoV-2 (COVID-19) RNA [Presence] in Nasopharynx by KYLE with non-probe detection 08/22/2023 08:21:55 Negative Negative Final Human metapneumovirus RNA [Presence] in Nasopharynx by KYLE with non-probe detection 08/22/2023 08:21:55 Negative Negative Final Rhinovirus+Enterovirus RNA [Presence] in Nasopharynx by KYLE with non-probe detection 08/22/2023 08:21:55 Negative Negative Final Influenza virus A RNA [Presence] in Nasopharynx by KYLE with non-probe detection 08/22/2023 08:21:55 Negative Negative Final Influenza virus B RNA [Presence] in Nasopharynx by KYLE with non-probe detection 08/22/2023 08:21:55 Negative Negative Final Parainfluenza virus 1 RNA [Presence] in Nasopharynx by KYLE with non-probe detection 08/22/2023 08:21:55 Negative Negative Final Parainfluenza virus 2 RNA [Presence] in Nasopharynx by KYLE with non-probe detection 08/22/2023 08:21:55 Negative Negative Final Parainfluenza virus 3 RNA [Presence] in Nasopharynx by KYLE with non-probe detection 08/22/2023 08:21:55 Negative Negative Final Parainfluenza virus 4 RNA [Presence] in Nasopharynx by KYLE with non-probe detection 08/22/2023 08:21:55 Negative Negative Final Respiratory syncytial virus RNA [Presence] in Nasopharynx by KYLE with non-probe detection 08/22/2023 08:21:55 Negative Negative Final Bordetella pertussis.pertussis toxin promoter region [Presence] in Nasopharynx by KYLE with non-probe detection 08/22/2023 08:21:55 Negative Negative Final Chlamydophila pneumoniae DNA [Presence] in Nasopharynx by KYLE with non-probe detection 08/22/2023 08:21:55 Negative Negative Final Mycoplasma pneumoniae DNA [Presence] in Nasopharynx by KYLE with non-probe detection 08/22/2023 08:21:55 Negative Negative Final Bordetella parapertussis [id number] DNA [Presence] in Nasopharynx by KYLE with non-probe detection 08/22/2023 08:21:55 Negative Negative Final
The primers that detect Rhinovirus may cross react with some Enterorviruses. The validation of bronchial specimens, tracheal aspirates, and throats for this assay was developed and performance characteristics determined by [employer]. The validation of alternate specimen types has not been cleared or approved by the U.S. Food and Drug Administration (FDA). It has been determined that such clearance or approval is not necessary. [facility] - [address] [place], [place] [address]bal[facility] [place] [address]
--- OUTSIDE RECORDS SUMMARY | 2023-08-22 22:25 | External Medical Summary ---
Author Name Unknown Address Unknown Organization : Laboratory Report Ordering Provider Test Date Status JENSEN CRUZ 08/22/2023 15:31:11 Final Observation Date Value Abnormality Reference (Units ) Status Glucose Point of Care 08/22/2023 15:31:11 98 70-120 (mg/dL) Final Performing Location
--- OUTSIDE RECORDS SUMMARY | 2023-08-22 22:25 | External Medical Summary | Summary of Care ---
Author Name Unknown Organization [facility] Address [address] [place] [address] Phone [phone] Care Team Providers Care Stagecraft Professor Name Role Phone James Peres PA-C Primary Care Provider Reason for Visit * Reason Comments eRx-Medication Refill Encounter Details Date Type Department Care Team (Late st Contact Info) Description 08/21/2023 Refill [facility] [address] [place] [address] Andrea Damian Jr., [address] [place] [phone] Allergies No known active allergiesdocumented as of this encounter (statuses as of 08/21/2023) Medications Medication Sig Dispensed Refills Start Date End Date Status Diclofenac Sodium (VOLTAREN) 1 % gel apply 2gm topically to affected area three times a day 2 Tube 5 04/24/20 17 Active Multiple Vitamins-Minerals (MULTIVITAMIN ADULT) TABS 0 Active Aspirin 81 MG Oral Tablet Delayed Release Take 1 Tablet by mouth in the morning. Starting 09/04/2019. 0 08/31/20 20 Active hydroCHLOROthiazide 25 MG Oral Tablet (Hydrodiuril)Indication s:HTN, goal below 150/90 Take 1 Tablet by mouth in the morning. 90 Tablet 3 10/29/19 23 Active dilTIAZem HCl ER Coated Beads 360 MG Oral Capsule Extended Release 24 HourIndications:HTN, goal below 150/90 TAKE ONE CAPSULE BY MOUTH EVERY MORNING ;DO NOT CUT, CRUSH, OR CHEW 90 Capsule 3 08/23/20 23 Active Losartan Potassium 100 MG Oral Tablet [...] PAIN. TAKE WITH FOOD. 180 Tablet 1 08/21/20 Active Naproxen 500 MG Oral Tablet (Naprosyn) TAKE ONE TABLET BY MOUTH TWICE A DAY NEEDED FOR PAIN. TAKE WITH FOOD. 180 Tablet 1 01/21/20 23 023 Discontinued documented as of this encounter (statuses as of 08/21/2023) Active Problems Problem Noted Date Diagnosed Date [...] as of this encounter (statuses as of 08/21/2023) Resolved Problems Problem Noted Date Diagnosed Date Resolved Date Syncope and collapse 05/23/2019 019 Gross hematuria 05/21/2019 05/24/[address] 05/21/201905/04 Syncopal episodes 05/21/2019 05/23/2019 Malignant neoplasm of bladder 03/10/2018 03/10/2018 MINE (acute kidney injury) 01/17/2017 Syncope due to orthostatic hypotension 01/17/2017 09/10/2017 Dehydration 01/17/2017 09/10/2017 documented as of this encounter (statuses as of 08/21/2023) Immunizations Name Administration Dates Next Due COVID-19 mRNA, LNP-s, No Pre serve, 2-Dose Series (WUT) 06/23/2021,11/21/2020,10/26/2020 Pneumococcal Conjugate Vacc, 13 Valent (Prevnar) [...] on file documented as of this encounter Functional Status Functional Status Response [...] No 05/21/2019 documented as of this encounter Miscellaneous Notes * Telephone Encounter - Maxwell Wyatt [facility] - 08/21/2023 4:05 PM ESTSigned Prescriptions: Disp Refills Naproxen 500 MG Oral Tablet (Naprosyn) 180 Ta*1 Sig: TAKE ONE TABLET BY MOUTH TWICE A DAY NEEDED FOR PAIN. TAKE WITH FOOD.Authorizing Provider: JAMES PERES User: [email or web address] WYATT Electronically signed by Maxwell Wyatt [facility] at 08/21/2023 4:05 PM EST documented in this encounter Plan of Treatment Upcoming Encounters Date Type Department Care Team (Late st Contact Info) Description 02/12/2024 7:40 AM EDT Office Visit [facility] [address] [place] [phone] James Peres PA-C [address] [place] [address] Health Maintenance Due Date Last Done Comments COVID-19 Vaccine (2022- season) 2023 06/23/2021, 11/21/2020, 10/26/2020 GFR 02/11/2024 08/12/2023, 12/0 09/2022, 06/20/2023, Additional history exists Albumin/Creatinine Ratio 06/03/2024 06/03/2023 Depression Screening 06/27/2024 06/27/2023 CKD HGB USE SMARTSET 20512 08/01/202408/01, 08/01/2023, 06/20/2023, Additional history exists CKD PHOS USE SMARTSET 50905 08/01/2024 12/0 09/2022, 10/23/2022, 09/04/2021 HbA1c 08/01/2024 08/01/2023, 10/03, 09/04/2021, [...] Not on filedocumented as of this encounter Advance Directives Latest Code Status [...] the patient have Health Care Power of Commercial Lawn Specialist? Yes, not currently available Code Status History [...] and were consensually agreed upon. Care Teams Stagecraft Professor Relationship Specialty Start Date End Date James Peres PA-C [address] [place] [phone] PCP - General Physician Hall Cleaner 02/26/21 documented as of this encounter
--- OUTSIDE RECORDS SUMMARY | 2023-08-22 22:25 | External Medical Summary ---
Author Name Unknown Address Unknown Organization K1F:[facility] [address] [facility] [place] [address] Laboratory Report Ordering Provider Test Date Status JENSEN CRUZ 08/22/2023 08:16:00 Final Observation Date Value Abnormality Reference (Units ) Status BUN 08/22/2023 08:16:00 33 Above high normal 6-20 (mg/dL) Final Creatinine 08/22/2023 08:16:00 1.2 0.6-1.2 (mg/dL) Final Glomerular filtration rate/1.73 sq M.predicted [Volume Rate/Area] in Serum, Plasma or Blood by Creatinine-based formula (CKD-EPI) 08/22/2023 08:16:00 60 >=60 (mL/min) Final eGFR is calculated based on the CKD-EPI 2020 equation SODIUM 08/22/2023 08:16:00 135 135-146 (m mol/L) Final Potassium 08/22/2023 08:16:00 3.5 3.5-5.1 (m mol/L) Final Cl 08/22/2023 08:16:00 98 98-107 (mm ol/L) Final CO2 08/22/2023 08:16:00 26 22-32 (mmo l/L) Final Anion gap 08/22/2023 08:16:00 11 7-15 (mmol /L) Final Glucose 08/22/2023 08:16:00 141 Above high normal 70 -120 (mg/dL) Final Albumin 08/22/2023 08:16:00 3.8 3.8-5.0 (g /dL) Final AST (Aspartate aminotransferase) 08/22/2023 08:16:00 35 10-50 (U/L) Fin al Alk Phos 08/22/2023 08:16:00 95 35-130 (U/ L) Final Bilirubin, Total 08/22/2023 08:16:00 0.5 <=1 .2 (mg/dL) Final Calcium 08/22/2023 08:16:00 9.9 8.4-10.2 ( mg/dL) Final Protein 08/22/2023 08:16:00 6.5 6.0-8.3 (g /dL) Final ALT (Alanine aminotransferase) 08/22/2023 08:16:00 28 10-50 (U/L) Doni guillermo Performing Location LABORATORY [facility] - [facility] [address] [place] [address]
--- OUTSIDE RECORDS SUMMARY | 2023-08-22 22:25 | External Medical Summary ---
Author Name Unknown Address Unknown Organization K1F:LABORATORY [facility] - [address] [place] [address] Laboratory Report Ordering Provider Test Date Status JENSEN CRUZ 08/22/2023 08:16:00 Final Warfarin Therapy
INR: 2 .0-3.0 conventional anticoagulation
INR: 2.5- 3.5 high intensity anticoagulation Observation Date Value Abnormality Reference (Units ) Status PT 08/22/2023 08:16:00 15.9 Above high normal 11 .6-15.2 (seconds) Final INR 08/22/2023 08:16:00 1.3 Above high normal 0. 8-1.2 Final Performing Location LABORATORY [facility] - [address] [place] [address]
--- OUTSIDE RECORDS SUMMARY | 2023-08-22 22:25 | External Medical Summary ---
Author Name Unknown Address Unknown Organization K1F:LABORATORY [facility] - [address] [place] [address] Laboratory Report Ordering Provider Test Date Status JENSEN CRUZ 08/22/2023 08:16:00 Final Observation Date Value Abnormality Reference (Units ) Status Lactic Acid 08/22/2023 08:16:00 1.4 0.4-2.0 (mmol/L) Final Performing Location LABORATORY [facility] - [address] [place] [address]
--- OUTSIDE RECORDS SUMMARY | 2023-08-22 22:26 | External Medical Summary ---
Author Name Unknown Address Unknown Organization K01:[facility] [address] [facility] [address] Laboratory Report Ordering Provider Test Date Status MILI RAMIREZ 08/01/2023 08:54:49 Final Observation Date Value Abnormality Reference (Units ) Status Triglyceride 08/01/2023 08:54:49 75 <=174 ( mg/dL) Final Triglyceride Reference Range s (mg/dL):
<150 Acceptable
150-174 Borderline high
175-499 High
>=500 Very high Cholesterol 08/01/2023 08:54:49 162 <200 (mg /dL) Final Total Cholesterol Reference Ranges (mg/dL):
<200 Desirable
200-239 Borderline high
>=240 High HDL 08/01/2023 08:54:49 56 >39 (mg/dL ) Final HDL Cholesterol Reference Ra nges (mg/dL):
>=60 High (Desirable)
<50 Low (Undesirable) For Females
<40 Low (Undesirable) For Males NON-HDL CHOLESTEROL 08/01/2023 08:54:49 106 <=159 (mg/dL) Final Non-HDL Cholesterol Referenc e Range (mg/dL):
<100 Target level for high risk ASCVD patient
<130 Optimal for general population
130-159 Near optimal for general population
160-189 Borderline High
190-219 High
>=220 Very High LDL, (calculated) 08/01/2023 08:54:49 91 <= 129 (mg/dL) Final LDL Cholesterol Reference Ra nges (mg/dL):
<70 Target level for high risk ASCVD patient
<100 Optimal for general population
100-129 Near optimal for general population
130-159 Borderline high
160-189 High
>=190 Very high Performing Location LAB[facility]ORY [facility] [place] [address] [facility] [address]
--- OUTSIDE RECORDS SUMMARY | 2023-08-22 22:26 | External Medical Summary | Summary of Care ---
Author Name Unknown Organization [facility] Address [address] [place] [address] Phone [phone] Care Team Providers Care Manager Database Administration Name Role Phone Gladys Peres PA-C Primary Care Provider Reason for Visit * Reason Onset Date Comments Test Results 08/04/2023 Encounter Details Date Type Department Care Team (Late st Contact Info) Description 08/04/2023 Telephone [facility] [address] [place] [address] Gladys Peres PA-C [address] [place] [address] Test Results Allergies No known active allergiesdocumented as of this encounter (statuses as of 08/04/2023) Medications Medication Sig Dispensed Refills Start Date End Date Status Diclofenac Sodium (VOLTAREN) 1 % gel apply 2gm topically to affected area three times a day 2 Tube 5 7 Active Multiple Vitamins-Minerals (MULTIVITAMIN ADULT) TABS 0 Active Aspirin 81 MG Oral Tablet Delayed Release Take 1 Tablet by mouth in the morning. Starting 09/04/2019. 0 0 Active hydroCHLOROthiazide 25 MG Oral Tablet (Hydrodiuril)Indications: HTN, goal below 150/90 Take 1 Tablet by mouth in the morning. 90 Tablet 3 3 Active Naproxen 500 MG Oral Tablet (Naprosyn) TAKE ONE TABLET BY MOUTH TWICE A DAY NEEDED FOR PAIN. TAKE WITH FOOD. 180 Tablet 1 3 Active dilTIAZem HCl ER Coated Beads 360 MG Oral Capsule Extended Release 24 HourIndications:HTN, goal below 150/90 TAKE ONE CAPSULE BY MOUTH EVERY MORNING ;DO NOT CUT, CRUSH, OR CHEW 90 Capsule 3 3 Active Losartan Potassium 100 MG Oral Tablet (Cozaar)Indications:HTN, goal below 150/90 TAKE ONE TABLET BY MOUTH EVERY MORNING 90 Tablet 3 3 Active Rosuvastatin Calcium 10 MG Oral Tablet (Crestor)Indications:Pure hypercholesterolemia TAKE ONE TABLET BY MOUTH AT BEDTIME FOR HIGH CHOLESTEROL 90 Tablet 1 3 Active Cyclobenzaprine HCl 5 MG Oral Tablet (Flexeril) Take 1 tablets up to 3 times a day as needed for muscle spasms. 30 Tablet 0 3 Active documented as of this encounter (statuses as of 08/04/2023) Active Problems Problem Noted Date Diagnosed Date [...] as of this encounter (statuses as of 08/04/2023) Resolved Problems Problem Noted Date Diagnosed Date Resolved Date Syncope and collapse 05/23/2019 019 Gross hematuria 05/21/2019 05/24/[address] 05/21/201905/04 Syncopal episodes 05/21/2019 05/23/2019 Malignant neoplasm of bladder 03/10/2018 03/10/2018 MINE (acute kidney injury) 01/17/2017 Syncope due to orthostatic hypotension 01/17/2017 09/10/2017 Dehydration 01/17/2017 09/10/2017 documented as of this encounter (statuses as of 08/04/2023) Immunizations Name Administration Dates Next Due COVID-19 mRNA, LNP-s, No Pre serve, 2-Dose Series ([employer]) 06/23/2021,11/21/2020,10/26/2020 Pneumococcal Conjugate Vacc, 13 Valent (Prevnar) 02/22/2016 Pneumococcal Polysaccharide PPV23 (Pneumovax) 03/05/2017 SEASONAL INFLUENZA, PF, 6 M & Above, IM , (FLULAVAL or FLUZONE) 09/10/2018 Season Influenza, Quad, PF, Adjuvanted, 65+ Yrs, IM (FLUAD) 08/06/2021 Seasonal Influenza, Quadriva lent Hd (Fluzone Hd) [...] encounter Miscellaneous Notes * Telephone Encounter - Akhil Gomez LPN - 08/04/2023 2:39 PM EST Pt notified and verbalized understanding. * Telephone Encounter - Gladys Peres PA-C - 08/04/2023 2:25 PM EST Kidney functions and liver functions are a little elevated. Will repeat next week at check up. Order placed documented in this encounter Plan of Treatment Upcoming Encounters Date Type Department Care Team (Late st Contact Info) Description 08/12/2023 7:40 AM EST Office Visit [facility] [address] [place] [address] Gladys Peres PA-C [address] [place] [address] 08/20/2023 10:45 AM EST Hospital Encounter [facility] Endoscopy [address] [place] [address] Marta Cates DO [address] [place] [address] 08/20/2023 10:45 AM EST - 08/20/2023 11:15 AM EST Surgery ENDO [facility], Endoscopy Suite [facility] [address] [facility] [place] [address] Marta Cates, [address] [place] [address] COLONOSCOPY FLEXIBLE PROXIMAL DIAGNOSTIC Scheduled Orders Name Type Priority Associated Diagnoses Orde r Schedule COMPREHENSIVE METABOLIC PANEL Lab Routine Elevated liver enzymes MINE (acute kidney injury) (HCC) Expected: 08/04/2023 (Approximate), Expires: 08/03/2024 Scheduled Procedures Name Priority Associated Diagnoses Date/Ti me COLONOSCOPY FLEXIBLE PROXIMAL DIAGNOSTIC Encounter for screening colonoscopy 08/20/2023 10:45 AM EST Health Maintenance Due Date Last Done Comments COLONOSCOPY-EVERY 5 YRS AGES 18-100 10/01/2022 10/01/2017, 03/31/2012 COVID-19 Vaccine ( season) 2023 06/23/2021, 11/21/2020, 10/26/2020 GFR 01/31/2024 08/01/2023, 06/02, 06/18/2023, Additional history exists Albumin/Creatinine Ratio 06/03/2024 06/03/2023 Depression Screening 06/27/2024 06/27/2023 CKD HGB USE SMARTSET 09929 08/01/202408/01, 08/01/2023, 06/20/2023, Additional history exists CKD PHOS USE SMARTSET 46876 08/01/202409/2022, 10/23/2022, 09/04/2021 HbA1c 08/01/2024 08/01/2023, 10/03, 09/04/2021, Additional history exists DTaP,Tdap,and Td Vaccines (2 - Td or Tdap) 02/24/2025 02/24/2015 Pneumococcal Vaccine: 65+ Years Completed 03/05/2017, 02/22/2016 [...] Not on filedocumented as of this encounter Visit Diagnoses Diagnosis Elevated liver enzymes- Primary Nonspecific elevation of levels of transaminase or lactic acid dehydrogenase (LDH) MINE (acute kidney injury) (HCC) Acute kidney failure, unspecified Encounter for screening colonoscopy Special screening for malignant neoplasms, colon documented in this encounter Advance Directives Latest [...] the patient have Health Care Power of Chief Of Anesthesiology? Yes, not currently available Code Status History [...] were consensually agreed upon. Care Teams Manager Database Administration Relationship Specialty Start Date End Date Gladys Peres PA-C [address] [place] [phone] PCP - General Physician Voice Engineer 02/26/21 documented as of this encounter
--- OUTSIDE RECORDS SUMMARY | 2023-08-22 22:26 | External Medical Summary | Summary of Care ---
Author Name Unknown Organization [facility] Address [address] [place] [address] Phone [phone] Care Team Providers Care Cargo And Container Inspector Name Role Phone Gladys Peres PA-C Primary Care Provider Reason for Visit * Reason Comments Outpatient Testing Encounter Details Date Type Department Care Team (Late st Contact Info) Description 08/12/2023 8:20 AM EST Laboratory Laboratory, [place] [address] [place] [address] [place], Lab [address] [place] [address] Elevated liver enzymes; MINE (acute kidney injury) (HCC) Allergies No known active allergiesdocumented as of this encounter (statuses as of 08/12/2023) Medications Medication Sig Dispensed Refills Start Date [...] HIGH CHOLESTEROL 90 Tablet 1 3 Active Acetaminophen 500 MG Oral Tablet (Tylenol) Take 2 Tablets by mouth every 4 hours as needed. 0 3 08/16/20 23 Active documented as of this encounter (statuses as of 08/12/2023) Active Problems Problem Noted Date Diagnosed Date [...] as of this encounter (statuses as of 08/12/2023) Resolved Problems Problem Noted Date Diagnosed Date Resolved Date Syncope and collapse 05/23/2019 019 Gross hematuria 05/21/2019 05/24/[address] 05/21/201905/04 Syncopal episodes 05/21/2019 05/23/2019 Malignant neoplasm of bladder 03/10/2018 03/10/2018 MINE (acute kidney injury) 01/17/2017 Syncope due to orthostatic hypotension 01/17/2017 09/10/2017 Dehydration 01/17/2017 09/10/2017 documented as of this encounter (statuses as of 08/12/2023) Immunizations Name Administration Dates Next Due COVID-19 mRNA, LNP-s, No Pre serve, 2-Dose Series ([employer]) 06/23/2021,11/21/2020,10/26/2020 Pneumococcal Conjugate Vacc, 13 Valent (Prevnar) [...] No 05/21/2019 documented as of this encounter Plan of Treatment Upcoming Encounters Date Type Department Care Team (Late st Contact Info) Description 08/20/2023 10:45 AM EST Hospital Encounter [facility], Endoscopy [address] [phone] Marta Cates DO [address] [place] [address] 08/20/2023 10:45 AM EST - 08/20/2023 11:15 AM EST Surgery [facility], Endoscopy [address] [place] [phone] Marta Cates DO [address] [place] [address] COLONOSCOPY FLEXIBLE PROXIMAL DIAGNOSTIC 02/12/2024 7:40 AM EDT Office Visit [facility] [address] [place] [phone] Gladys Peres PA-C [address] [place] [address] Pending Results Name Type Priority Associated Diagnoses Date /Time COMPREHENSIVE METABOLIC PANEL Lab Routine Elevated liver enzymes MINE (acute kidney injury) (HCC) 08/12/2023 8:05 AM EST Scheduled Procedures Name Priority Associated Diagnoses Date/Ti me COLONOSCOPY FLEXIBLE PROXIMAL DIAGNOSTIC Encounter for screening colonoscopy 08/20/2023 10:45 AM EST Health Maintenance Due Date Last Done Comments COLONOSCOPY-EVERY 5 YRS AGES 18-100 10/01/2022 10/01/2017, 03/31/2012 COVID-19 Vaccine ( season) 2023 06/23/2021, 11/21/2020, 10/26/2020 GFR 01/31/2024 08/01/2023, 06/02, 06/18/2023, Additional history exists Albumin/Creatinine Ratio 06/03/2024 06/03/2023 Depression Screening 06/27/2024 06/27/2023 CKD HGB USE SMARTSET 53031 08/01/202408/01, 08/01/2023, 06/20/2023, Additional history exists CKD PHOS USE SMARTSET 00485 08/01/202409/2022, 10/23/2022, 09/04/2021 HbA1c 08/01/2024 08/01/2023, 10/03, [...] this encounter Visit Diagnoses Diagnosis Elevated liver enzymes Nonspecific elevation of levels of transaminase or [...] the patient have Health Care Power of Critical Care Registered Nurse? Yes, not currently available Code Status History [...] and were consensually agreed upon. Care Teams Cargo And Container Inspector Relationship Specialty Start Date End Date Gladys Peres PA-C [address] [place] [address] PCP - General Physician Machine Presser 02/26/21 documented as of this encounter
--- OUTSIDE RECORDS SUMMARY | 2023-08-22 22:26 | External Medical Summary ---
Author Name Unknown Address Unknown Organization K01:[facility] - [address] [place] [address] Laboratory Report Ordering Provider Test Date Status MILI RAMIREZ 08/01/2023 08:54:49 Final Observation Date Value Abnormality Reference (Units ) Status TSH 08/01/2023 08:54:49 1.13 0.27-4.20 (uIU/mL) Final Performing Location [facility] - [address] [place] [address]
--- OUTSIDE RECORDS SUMMARY | 2023-08-22 22:26 | External Medical Summary | Summary of Care ---
Author Name Unknown Organization [facility] Address [address] [place] [address] Phone [phone] Care Team Providers Care Emergency Department Clinician Name Role Phone James Peres PA-C Primary Care Provider Reason for Visit * Reason Onset Date Comments Order Request 07/30/2023 Encounter Details Date Type Department Care Team (Late st Contact Info) Description 07/30/2023 [facility] [address] [place] [address] James Peres PA-C [address] [place] [address] Order Request Allergies No known active allergiesdocumented as of this encounter (statuses as of 07/30/2023) Medications Medication Sig Dispensed Refills Start Date [...] as of this encounter (statuses as of 07/30/2023) Active Problems Problem Noted Date Diagnosed Date [...] as of this encounter (statuses as of 07/30/2023) Resolved Problems Problem Noted Date Diagnosed Date Resolved Date Syncope and collapse 05/23/2019 019 Gross hematuria 05/21/2019 05/24/[address] 05/21/201905/04 Syncopal episodes 05/21/2019 05/23/2019 Malignant neoplasm of bladder 03/10/2018 03/10/2018 MINE (acute kidney injury) 01/17/2017 Syncope due to orthostatic hypotension 01/17/2017 09/10/2017 Dehydration 01/17/2017 09/10/2017 documented as of this encounter (statuses as of 07/30/2023) Immunizations Name Administration Dates Next Due COVID-19 mRNA, LNP-s, No Pre serve, 2-Dose Series ([employer]) 06/23/2021,11/21/2020,10/26/2020 Pneumococcal Conjugate Vacc, 13 Valent (Prevnar) [...] as of this encounter Miscellaneous Notes * Addendum Note - James Peres PA-C - 07/30/2023 9:00 AM ESTAddended by: JAMES PERES on: 07/30/2023 09:00 AM Modules accepted: Orders * Telephone Encounter - James Peres PA-C - 07/30/2023 9:00 AM EST Orders signed * Addendum Note - Richie Elizondo CMA - 07/30/2023 8:15 AM ESTAddended by: RICHIE ELIZONDO on: 07/30/2023 08:15 AM Modules accepted: Orders * Telephone Encounter - Richie Elizondo CMA - 07/30/2023 8:14 AM EST Pended orders if in agreement * Telephone Encounter - Marta Fitzpatrick OSA - 07/30/2023 7:46 AM EST Patient is scheduled Friday for labs please place orders if labs are needed at this time. Thank you documented in this encounter Plan of Treatment Upcoming Encounters Date Type Department Care Team (Late st Contact Info) Description 08/01/2023 9:00 AM EST Laboratory Laboratory, [place] [address] [facility] [address] [place] [address] [place] [phone] [place], [facility] [address] [facility] [address] [place] [address] [place] [address] 08/12/2023 7:40 AM EST [facility] [address] [place] [phone] James Peres PA-C [address] [place] [address] 08/20/2023 10:45 AM EST Hospital Encounter [facility], Endoscopy [address] [phone] Marta Cates, [address] [place] [address] 08/20/2023 10:45 AM EST - 08/20/2023 11:15 AM EST Surgery [facility], Endoscopy [address] [phone] Marta Cates DO [address] [place] [address] COLONOSCOPY FLEXIBLE PROXIMAL DIAGNOSTIC Scheduled Orders Name Type Priority Associated Diagnoses Orde r Schedule COMPREHENSIVE METABOLIC PANEL Lab Routine Chronic kidney disease, stage 3a (HCC) Prediabetes Pure hypercholesterolemia History of prostate cancer Expected: 07/30/2023 (Approximate), Expires: 07/29/2024 LIPID PANEL WITH DIRECT LDL IF TG IS HIGH Lab Routine Chronic kidney disease, stage 3a (HCC) Prediabetes Pure hypercholesterolemia History of prostate cancer Expected: 07/30/2023, Expires: 07/30/2024 TSH Lab Routine Chronic kidney disease, stage 3a (HCC) Prediabetes Pure hypercholesterolemia History of prostate cancer Expected: 07/30/2023 (Approximate), Expires: 07/29/2024 HEMOGLOBIN A1C Lab Routine Chronic kidney disease, stage 3a (HCC) Prediabetes Pure hypercholesterolemia History of prostate cancer Expected: 07/30/2023 (Approximate), Expires: 07/29/2024 PHOSPHORUS Lab Routine Chronic kidney disease, stage 3a (HCC) Prediabetes Pure hypercholesterolemia History of prostate cancer Expected: 07/30/2023 (Approximate), Expires: 07/29/2024 BASIC METABOLIC PANEL Lab Routine Chronic kidney disease, stage 3a (HCC) Prediabetes Pure hypercholesterolemia History of prostate cancer Expected: 07/30/2023 (Approximate), Expires: 07/29/2024 CBC WITH WBC DIFFERENTIAL Lab Routine Chronic kidney disease, stage 3a (HCC) Prediabetes Pure hypercholesterolemia History of prostate cancer Expected: 07/30/2023 (Approximate), Expires: 07/30/2024 PSA Lab Routine Chronic kidney disease, stage 3a (HCC) Prediabetes Pure hypercholesterolemia History of prostate cancer Expected: 07/30/2023 (Approximate), Expires: 07/29/2024 Scheduled Procedures Name Priority Associated Diagnoses Date/Ti me COLONOSCOPY FLEXIBLE PROXIMAL DIAGNOSTIC Encounter for screening colonoscopy 08/20/2023 10:45 AM EST Health Maintenance Due Date Last Done Comments COLONOSCOPY-EVERY 5 YRS AGES 18-100 10/01/2022 10/01/2017, 03/31/2012 COVID-19 Vaccine ( season) 2023 06/23/2021, 11/21/2020, 10/26/2020 CKD PHOS USE SMARTSET 12196 10/23/2023 10/23/2022, 0 09/04/2021 HbA1c 10/23/2023 10/23/2022, 0111/2021, 06/05/2021, Additional history exists GFR 12/20/2023 06/20/2023, 06/01, 04/03/2023, Additional history exists Albumin/Creatinine Ratio 06/03/2024 06/03/2023 CKD HGB USE SMARTSET 48438 06/20/202406/20, 06/20/2023, 06/18/2023, Additional history exists Depression Screening 06/27/2024 06/27/2023 DTaP,Tdap,and Td Vaccines (2 - Td or [...] as of this encounter Visit Diagnoses Diagnosis Chronic kidney disease, stage 3a (HCC)- Primary Prediabetes Other abnormal glucose Pure hypercholesterolemia History of prostate cancer Personal history of malignant neoplasm of prostate Encounter for screening colonoscopy Special screening for [...] the patient have Health Care Power of Level Designer? Yes, not currently available Code Status History [...] and were consensually agreed upon. Care Teams Emergency Department Clinician Relationship Specialty Start Date End Date James Peres PA-C [address] [place] [address] PCP - General Physician Portfolio Lead 02/26/21 documented as of this encounter
--- OUTSIDE RECORDS SUMMARY | 2023-08-22 22:26 | External Medical Summary ---
Author Name Unknown Address Unknown Organization K01:[facility] - [address] [facility] [place] [address] Laboratory Report Ordering Provider Test Date Status MILI RAMIREZ 08/12/2023 08:05:20 Final Observation Date Value Abnormality Reference (Units ) Status BUN 08/12/2023 08:05:20 23 Above high normal 6-20 (mg/dL) Final Creatinine 08/12/2023 08:05:20 1.1 0.6-1.2 (mg/dL) Final Glomerular filtration rate/1.73 sq M.predicted [Volume Rate/Area] in Serum, Plasma or Blood by Creatinine-based formula (CKD-EPI) 08/12/2023 08:05:20 68 >=60 (mL/min) Final eGFR is calculated based on the CKD-EPI 2020 equation SODIUM 08/12/2023 08:05:20 141 135-146 (m mol/L) Final Potassium 08/12/2023 08:05:20 4.2 3.5-5.1 (m mol/L) Final Cl 08/12/2023 08:05:20 101 98-107 (mm ol/L) Final CO2 08/12/2023 08:05:20 28 22-32 (mmo l/L) Final Anion gap 08/12/2023 08:05:20 12 7-15 (mmol /L) Final Glucose 08/12/2023 08:05:20 118 70-120 (mg /dL) Final Albumin 08/12/2023 08:05:20 4.6 3.8-5.0 (g /dL) Final AST (Aspartate aminotransferase) 08/12/2023 08:05:20 28 10-50 (U/L) Fin al Alk Phos 08/12/2023 08:05:20 133 Above high normal 35 -130 (U/L) Final Bilirubin, Total 08/12/2023 08:05:20 0.2 <=1 .2 (mg/dL) Final Calcium 08/12/2023 08:05:20 10.0 8.4-10.2 ( mg/dL) Final Protein 08/12/2023 08:05:20 6.8 6.0-8.3 (g /dL) Final ALT (Alanine aminotransferase) 08/12/2023 08:05:20 36 10-50 (U/L) Doni guillermo Performing Location [facility] - [facility] [address] [facility] [address]
--- OUTSIDE RECORDS SUMMARY | 2023-08-22 22:26 | External Medical Summary | Summary of Care ---
Author Name Unknown Organization [facility] Address [address] [place] [address] Phone [phone] Care Team Providers Care Mud Analysis Well Logging Operator Name Role Phone Gladys Peres PA-C Primary Care Provider Reason for Visit * Reason Onset Date Comments Test Results 08/04/2023 Encounter Details Date Type Department Care Team (Late st Contact Info) Description 08/04/2023 Telephone [facility] [address] [place] [address] Gladys Peres PA-C [address] [place] [address] Test Results Allergies No [...] mRNA, LNP-s, No Pre serve, 2-Dose Series ([employer]) 06/23/2021,11/21/2020,10/26/2020 Pneumococcal Conjugate Vacc, 13 Valent (Prevnar) [...] Description 08/12/2023 7:40 AM EST Office Visit [facility] [address] [place] [address] Gladys Peres PA-C [address] [place] [address] 08/20/2023 10:45 AM EST Hospital Encounter [facility], Endoscopy [address] [place] [address] Marta Cates DO [address] [place] [address] 08/20/2023 10:45 AM EST - 08/20/2023 11:15 AM EST Surgery [facility], Endoscopy Suite [facility] [address] [facility] [place] [address] Marta Cates, [address] [place] [address] COLONOSCOPY FLEXIBLE PROXIMAL DIAGNOSTIC Scheduled Orders Name [...] Screening 06/27/2024 06/27/2023 CKD HGB USE SMARTSET 14846 08/01/202408/01, 08/01/2023, 06/20/2023, Additional history exists CKD PHOS USE SMARTSET 25729 08/01/202409/2022, 10/23/2022, 09/04/2021 HbA1c 08/01/2024 08/01/2023, 10/03, [...] the patient have Health Care Power of Printed Circuit Layout Taper? Yes, not currently available Code Status History [...] and were consensually agreed upon. Care Teams Mud Analysis Well Logging Operator Relationship Specialty Start Date End Date Gladys Peres PA-C [address] [place] [phone] PCP - General Physician Community Development Officer 02/26/21 documented as of this encounter
--- OUTSIDE RECORDS SUMMARY | 2023-08-22 22:26 | External Medical Summary | Summary of Care ---
Author Name Unknown Organization [facility] Address [address] [place] [address] Phone [phone] Care Team Providers Care Dehydrogenation Operator Name Role Phone Gladys Peres PA-C Primary Care Provider Reason for Visit * Reason Onset Date Comments Test Results 08/12/2023 Encounter Details Date Type Department Care Team (Late st Contact Info) Description 08/12/2023 Telephone [facility] [address] [place] [address] Gladys Peres PA-C [address] [place] [address] Test Results Allergies No [...] mRNA, LNP-s, No Pre serve, 2-Dose Series ([employer]) 06/23/2021,11/21/2020,10/26/2020 Pneumococcal Conjugate Vacc, 13 Valent (Prevnar) [...] encounter Miscellaneous Notes * Telephone Encounter - Gladys Peres PA-C - 08/12/2023 6:08 PM EST Labs are much better. No medication changes. Drink more water less Mttavo Morrison, Recheck in 6 months documented in this encounter Plan of Treatment Upcoming Encounters Date Type Department Care Team (Late st Contact Info) Description 08/20/2023 10:45 AM EST Hospital Encounter [facility], Endoscopy [address] [phone] Marta Cates DO [address] [place] [address] 08/20/2023 10:45 AM EST - 08/20/2023 11:15 AM EST Surgery [facility] [phone] Marta Cates DO [address] [place] [address] COLONOSCOPY FLEXIBLE PROXIMAL DIAGNOSTIC 02/12/2024 7:40 AM EDT Office Visit [facility] [address] [place] [address] Gladys Peres PA-C [address] [place] [place] [phone] Scheduled Procedures Name Priority Associated Diagnoses Date/Ti me COLONOSCOPY FLEXIBLE PROXIMAL DIAGNOSTIC Encounter for screening colonoscopy 08/20/2023 10:45 AM EST Health Maintenance Due Date Last Done Comments COLONOSCOPY-EVERY 5 YRS AGES 18-100 10/01/2022 10/01/2017, 03/31/2012 COVID-19 Vaccine ( season) 2023 06/23/2021, 11/21/2020, 10/26/2020 GFR 02/11/2024 08/12/2023, 09/2022, 06/20/2023, Additional history exists Albumin/Creatinine Ratio 06/03/2024 06/03/2023 Depression Screening 06/27/2024 06/27/2023 CKD HGB USE SMARTSET 01933 08/01/202408/01, 08/01/2023, 06/20/2023, Additional history exists CKD PHOS USE SMARTSET 00454 08/01/202409/2022, 10/23/2022, 09/04/2021 HbA1c 08/01/2024 08/01/2023, 10/03, [...] the patient have Health Care Power of Transportation Engineering Technician? Yes, not currently available Code Status History [...] and were consensually agreed upon. Care Teams Dehydrogenation Operator Relationship Specialty Start Date End Date Gladys Peres PA-C [address] [place] [place] [address] PCP - General Physician Phosphoric Acid Operator 02/26/21 documented as of this encounter
--- OUTSIDE RECORDS SUMMARY | 2023-08-22 22:26 | External Medical Summary | Summary of Care ---
Author Name Unknown Organization [facility] Address [address] [place] [address] Phone [phone] Care Team Providers Care Diagnostic Assistant Name Role Phone Gladys Peres PA-C Primary Care Provider Reason for Visit * Reason Comments pre-op exam Pt is here for a pre -op exam for surgery on 07/[address] 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 Encounter Details Date Type Department Care Team (Late st Contact Info) Description 06/27/2023 7:40 AM EDT Office Visit [facility] [address] [place] [phone] Gladys Peres PA-C [address] [place] [phone] Preop examination*; Acute pain of left knee Allergies No known active allergiesdocumented as of this encounter (statuses as of 06/27/2023) Medications Medication Sig Dispensed Refills Start Date [...] HIGH CHOLESTEROL 90 Tablet 1 3 Active Cephalexin 500 MG Oral Capsule Take 1 Capsule by mouth in the morning and 1 Capsule at noon and 1 Capsule in the evening and 1 Capsule before bedtime. Do all this for 7 days. 28 Capsule 0 3 06/27/20 23 Active Cyclobenzaprine HCl 5 MG Oral Tablet (Flexeril) Take 1 tablets up to 3 times a day as needed for muscle spasms. 30 Tablet 0 3 Active documented as of this encounter (statuses as of 06/27/2023) Active Problems Problem Noted Date Diagnosed Date [...] as of this encounter (statuses as of 06/27/2023) Resolved Problems Problem Noted Date Diagnosed Date Resolved Date Syncope and collapse 05/23/2019 019 Gross hematuria 05/21/2019 05/24/[address] 05/21/201905/04 Syncopal episodes 05/21/2019 05/23/2019 Malignant neoplasm of bladder 03/10/2018 03/10/2018 MINE (acute kidney injury) 01/17/2017 Syncope due to orthostatic hypotension 01/17/2017 09/10/2017 Dehydration 01/17/2017 09/10/2017 documented as of this encounter (statuses as of 06/27/2023) Immunizations Name Administration Dates Next Due COVID-19 mRNA, LNP-s, No Pre serve, 2-Dose Series (Pfizer) 06/23/2021,11/21/2020,10/26/2020 Pneumococcal Conjugate Vacc, 13 Valent (Prevnar) [...] Date Smoking Tobacco: Never Smokeless Tobacco: Never Tobacco Cessation:Counseling Given: Not Answered Alcohol Use Standard Drinks/Week Comments No 0 (1 standard drink = 0.6 oz pur e alcohol) PHQ-2 Answer Date Recorded PHQ Adult Total Score 0 03/07/2021 Hunger Vital Sign Answer Date Recorded Within [...] Sign Reading Time Taken Comments Blood Pressure 140/70 06/27/2023 8:09 AM EDT Pulse 61 06/27/2023 7:44 AM EDT Temperature 36.1 C (96.9 F) 06/27/2023 7:44 AM ED T Respiratory Rate 18 06/27/2023 7:44 AM EDT Oxygen Saturation 96% 06/27/2023 7:44 AM EDT Inhaled Oxygen Concentration - - Weight 83.6 kg (184 lb 4.8 oz) 06/27/2023 7:44 A M EDT Height - - Body Mass Index 28.87 06/20/2023 1:03 PM EDT documented in this encounter Functional Status Functional [...] or making decisions? (5 years old or older No 05/21/2019 documented as of this encounter Progress Notes * Chon Teresa CRNP - 06/27/2023 7:59 AM EDT Images from the original note were not included. History of Present Illness Td Latham Jr. is a 77 year old male that presents for pre-op exam (Pt is here for a pre-op exam for surgery on 07/[address] 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 The patient had his left knee replaced about 13 years ago. Per the assessment plan of Dr. Mancera on 06/18/2023 he states "he is going to need an exploration and revision of the poly insert to a journey total post. Should fix him up and he should be fine" The patient has no history of issues with anesthesia. Per the [facility] he will only be put under spinal anesthesia. The patient does complain of left knee pain that radiates up to his left low back. We discussed sciatica versus possible pain related to his knee. He states the pain is worse when he puts weight on his left knee. We discussed conservative therapy such as lidocaine patch, Tylenol, and applying heat to the areas of pain. Reviewed last labs Latest Reference Range & Units 06/18/23 00:00 06/20/23 13:29 06/20/23 13:30 Sodium 135 - 146 mmol/L 136 Potassium 3.5 - 5.1 mmol/L 4.0 POTASSIUM-OUTSIDE LAB 3.5 - 5.1 MMOL/L 4.0 (E) Chloride 98 - 107 mmol/L 100 CO2 22 - 32 mmol/L 26 BUN 6 - 20 mg/dL 22 (H) Creatinine 0.6 - 1.2 mg/dL 1.1 CREATININE-OUTSIDE LAB 0.60 - 1.4 MG/DL 1.07 (E) Estimated Glomerular Filtration Rate >=60 mL/min 68 EGFR-OUTSIDE LAB ML/MIN 66.1 (E) Anion Gap 7 - 15 mmol/L 10 Glucose 70 - 120 mg/dL 124 (H) GLUCOSE-OUTSIDE LAB 70 - 99 MG/DL 112 ! (E) Calcium 8.4 - 10.2 mg/dL 9.9 Protein 6.0 - 8.3 g/dL 6.9 Lipase 13 - 60 U/L 25 CBC Rpt ! CBC WITH WBC DIFFERENTIAL Rpt ! WBC 4.00 - 10.80 K/uL 8.09 HGB 14.0 - 16.8 g/dL 13.9 (L) HCT 40.0 - 48.4 % 40.5 MCV 82.0 - 99.5 fL 87.7 PLT 140 - 400 K/uL 201 Absolute Neutrophils 1.80 - 7.70 K/uL 6.66 Absolute Lymphocytes 1.00 - 4.80 K/ul 0.86 (L) Absolute Monocytes 0.00 - 1.10 K/uL 0.47 Absolute Eosinophils 0.00 - 0.70 K/uL 0.04 Absolute Basophils 0.00 - 0.20 K/uL 0.04 Albumin 3.8 - 5.0 g/dL 4.1 AST 10 - 50 U/L 25 ALT 10 - 50 U/L 20 Alkaline Phosphatase 35 - 130 U/L 99 Bilirubin, Total <=1.2 mg/dL 0.4 (H): Data is abnormally high !: Data is abnormal (L): Data is abnormally low (E): External lab result Rpt: View report in Results Review for more information Review of Systems Constitutional: Negative. HENT: Negative. Eyes: Negative. Respiratory: Negative. Cardiovascular: Negative. Gastrointestinal: Negative. Endocrine: Negative. Genitourinary: Negative. Musculoskeletal: Negative. Complaints of left knee pain radiating to left low back. Skin: Negative. Neurological: Negative. Physical Exam BP 144/80 | Pulse 61 | Temp 36.1 C (96.9 F) (Tympanic) | Resp 18 | Wt 83.6 kg (184 lb 4.8 oz) |SpO2 96% | BMI 28.87 kg/m | BSA 1.99 m Physical Exam Vitals reviewed. Constitutional: Appearance: Normal appearance. He is normal weight. HENT: Head: Normocephalic. Right Ear: Tympanic membrane, ear canal and external ear normal. Left Ear: Tympanic membrane, ear canal and external ear normal. Nose: Nose normal. Mouth/Throat: Pharynx: Oropharynx is clear. Eyes: Extraocular Movements: Extraocular movements intact. Conjunctiva/sclera: Conjunctivae normal. Pupils: Pupils are equal, round, and reactive to light. Cardiovascular: Rate and Rhythm: Normal rate and regular rhythm. Pulses: Normal pulses. Heart sounds: Murmur heard. Comments: History of murmur. Examined in the past for the same. PIEDAD done in 2019. Pulmonary: Effort: Pulmonary effort is normal. Breath sounds: Normal breath sounds. Abdominal: General: Bowel sounds are normal. Palpations: Abdomen is soft. Musculoskeletal: General: Normal range of motion. Cervical back: Normal range of motion. Skin: General: Skin is warm and dry. Capillary Refill: Capillary refill takes less than 2 seconds. Neurological: Mental Status: He is alert and oriented to person, place, and time. Mental status is at baseline. Psychiatric: Mood and Affect: Mood normal. Assessment and Plan (Z01.818) Preop examination (primary encounter diagnosis) Plan: Per examination, the patient is clinically optimized for the surgery with [facility] for his left knee that is scheduled for 07/21/2023. (M25.562) Acute pain of left knee Plan: The patient can use conservative treatment such as lidocaine patch, heat, and Tylenol. Shouldbe cautious with using ibuprofen. Wrap-Up Pt is to follow up with PCP in August as scheduled. Pt is to notify us of any concerning or worsening symptoms. Pt expresses understanding and satisfaction with plan. Time: I spent a total of 30-39 minutes (exact time 35 mins) on the date of service in preparation, delivery, and documentation of the care provided to Vincent Latham . excluding any time spent in the performance of separately billed services. LIZETTE Luong documented in this encounter Nursing Notes * Akhil Gomez LPN - 06/27/2023 7:44 AM EDT Chief Complaint Patient presents with pre-op exam Pt is here for a pre-op exam for surgery on 07/[address] 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 documented in this encounter Plan of Treatment Upcoming Encounters Date Type Department Care Team (Late st Contact Info) Description 07/21/2023 9:10 AM EST Laboratory Laboratory, [place] [facility] [address] [place] [phone] [place] [facility] [address] [place] [address] 08/12/2023 7:40 AM EST Office Visit [facility] [address] [place] [phone] Gladys Peres PA-C [address] [place] [address] 08/20/2023 10:45 AM EST Hospital Encounter [facility] Endoscopy [address] [place] [phone] Marta Cates DO [address] [place] [id number] 08/20/2023 10:45 AM EST - 08/20/2023 11:15 AM EST Surgery [facility] Endoscopy [address] [place] [id number] Marta Cates DO [address] [place] [address] COLONOSCOPY FLEXIBLE PROXIMAL DIAGNOSTIC Scheduled Procedures Name Priority Associated Diagnoses Date/Ti me COLONOSCOPY FLEXIBLE PROXIMAL DIAGNOSTIC Encounter for screening colonoscopy 08/20/2023 10:45 AM EST Health Maintenance Due Date Last Done Comments Depression Screening 03/07/2022 06/27/2023 COLONOSCOPY-EVERY 5 YRS AGES 18-100 10/01/2022 10/01/2017, 03/31/2012 COVID-19 Vaccine ( season) 2023 06/23/2021, 11/21/2020, 10/26/2020 CKD PHOS USE SMARTSET 39742 10/23/2023 10/23/2022, 0 09/04/2021 HbA1c 10/23/2023 10/23/2022, 11/2021, 06/05/2021, Additional history exists GFR 12/20/2023 06/20/2023, 06/01, 04/03/2023, Additional history exists Albumin/Creatinine Ratio 06/03/2024 06/03/2023 CKD HGB USE SMARTSET 10583 06/20/202406/20, 06/20/2023, 06/18/2023, Additional history exists DTaP,Tdap,and Td Vaccines (2 [...] as of this encounter Visit Diagnoses Diagnosis Preop examination- Primary Preoperative examination, unspecified Acute pain of left knee Encounter for screening colonoscopy Special screening for [...] the patient have Health Care Power of Well Service Derrick Worker? Yes, not currently available Code Status History [...] and were consensually agreed upon. Care Teams Diagnostic Assistant Relationship Specialty Start Date End Date Gladys Peres PA-C [address] [place] [phone] PCP - General Physician Import/Export Specialist 02/26/21 documented as of this encounter
--- OUTSIDE RECORDS SUMMARY | 2023-08-22 22:26 | External Medical Summary | Summary of Care ---
Author Name Unknown Organization [facility] Address [address] [place] [address] Phone [phone] Care Team Providers Care Yarn Weight And Strength Tester Name Role Phone Gladys Peres PA-C Primary Care Provider Reason for Visit * Reason Onset Date Comments Order Request 07/30/2023 Encounter Details Date Type Department Care Team (Late st Contact Info) Description 07/30/2023 Telephone [facility] [address] [place] [address] Gladys Peres PA-C [address] [place] [address] Order Request Allergies No [...] mRNA, LNP-s, No Pre serve, 2-Dose Series ([employer]) 06/23/2021,11/21/2020,10/26/2020 Pneumococcal Conjugate Vacc, 13 Valent (Prevnar) [...] encounter Miscellaneous Notes * Addendum Note - Richie Elizondo CMA [...] Description 08/01/2023 9:00 AM EST Laboratory Laboratory, [place] [address] [facility] [address] [place] [phone] [place] [address] [facility] [address] [place] [address] 08/12/2023 7:40 AM EST Office Visit [facility] [address] [place] [phone] Gladys Peres PA-C [address] [place] [address] 08/20/2023 10:45 AM EST Hospital Encounter [facility] [address] [place] [phone] Marta Cates DO [address] [place] [address] 08/20/2023 10:45 AM EST - 08/20/2023 11:15 AM EST Surgery ENDO [facility] [phone] Marta Cates DO [address] [place] [address] COLONOSCOPY FLEXIBLE PROXIMAL DIAGNOSTIC Scheduled Procedures Name Priority Associated Diagnoses Date/Ti me COLONOSCOPY FLEXIBLE PROXIMAL DIAGNOSTIC Encounter for screening colonoscopy 08/20/2023 10:45 AM EST Health Maintenance Due Date Last Done Comments COLONOSCOPY-EVERY 5 YRS AGES 18-100 10/01/2022 10/01/2017, 03/31/2012 COVID-19 Vaccine ( season) 2023 06/23/2021, 11/21/2020, 10/26/2020 CKD PHOS USE SMARTSET 64049 10/23/2023 10/23/2022, 0 09/04/2021 HbA1c 10/23/2023 10/23/2022, 01/0 11/2021, 06/05/2021, Additional history exists GFR 12/20/2023 06/20/2023, 06/01, 04/03/2023, Additional history exists Albumin/Creatinine Ratio 06/03/2024 06/03/2023 CKD HGB USE SMARTSET 60556 06/20/202406/20, 06/20/2023, 06/18/2023, Additional history exists Depression [...] the patient have Health Care Power of Construction Grip? Yes, not currently available Code Status History [...] and were consensually agreed upon. Care Teams Yarn Weight And Strength Tester Relationship Specialty Start Date End Date Gladys Peres PA-C [address] [place] [phone] PCP - General Physician Residential Plumber 02/26/21 documented as of this encounter
--- OUTSIDE RECORDS SUMMARY | 2023-08-22 22:26 | External Medical Summary ---
Author Name Unknown Address Unknown Organization K01:[facility] - [address] [place] [address] Laboratory Report Ordering Provider Test Date Status MILI RAMIREZ 08/01/2023 08:54:49 Final Observation Date Value Abnormality Reference (Units ) Status PSA 08/01/2023 08:54:49 0.56 <4.10 (ng/ mL) Final Performing Location [facility] - [address] [place] [address]
--- OUTSIDE RECORDS SUMMARY | 2023-08-22 22:26 | External Medical Summary ---
Author Name Unknown Address Unknown Organization K01:[facility] [place] [address] [place] [facility] [place] [address] Laboratory Report Ordering Provider Test Date Status MILI RAMIREZ 08/01/2023 08:54:49 Final Observation Date Value Abnormality Reference (Units ) Status BUN 08/01/2023 08:54:49 30 Above high normal 6-20 (mg/dL) Final Creatinine 08/01/2023 08:54:49 1.3 Above high normal 0.6-1.2 (mg/dL) Final Glomerular filtration rate/1.73 sq M.predicted [Volume Rate/Area] in Serum, Plasma or Blood by Creatinine-based formula (CKD-EPI) 08/01/2023 08:54:49 56 Below low normal >=60 (mL/min) Final eGFR is calculated based on the CKD-EPI 2020 equation SODIUM 08/01/2023 08:54:49 140 135-146 (m mol/L) Final Potassium 08/01/2023 08:54:49 4.5 3.5-5.1 (m mol/L) Final Cl 08/01/2023 08:54:49 101 98-107 (mm ol/L) Final CO2 08/01/2023 08:54:49 25 22-32 (mmo l/L) Final Anion gap 08/01/2023 08:54:49 14 7-15 (mmol /L) Final Glucose 08/01/2023 08:54:49 107 70-120 (mg /dL) Final Albumin 08/01/2023 08:54:49 4.2 3.8-5.0 (g /dL) Final AST (Aspartate aminotransferase) 08/01/2023 08:54:49 51 Above high normal 10-50 (U/L) Final Alk Phos 08/01/2023 08:54:49 155 Above high normal 35 -130 (U/L) Final Bilirubin, Total 08/01/2023 08:54:49 0.8 <=1 .2 (mg/dL) Final Calcium 08/01/2023 08:54:49 10.1 8.4-10.2 ( mg/dL) Final Protein 08/01/2023 08:54:49 6.5 6.0-8.3 (g /dL) Final ALT (Alanine aminotransferase) 08/01/2023 08:54:49 75 Above high normal 10-50 (U/L) Final Performing Location [facility] [place] - [address] [facility] [address]
--- OUTSIDE RECORDS SUMMARY | 2023-08-22 22:26 | External Medical Summary ---
Author Name Unknown Address Unknown Organization K01:[facility] [place] - [address] [place] [address] Laboratory Report Ordering Provider Test Date Status MILI RAMIREZ 08/01/2023 08:54:49 Final Observation Date Value Abnormality Reference (Units ) Status WBC, Total 08/01/2023 08:54:49 5.95 4.00-10.80 (K/uL) Final RBC 08/01/2023 08:54:49 4.47 4.50-5.25 (M/uL) Final Hemoglobin 08/01/2023 08:54:49 13.3 Below low normal 14.0-16.8 (g/dL) Final HCT 08/01/2023 08:54:49 40.4 40.0-48.4 (%) Final MCV 08/01/2023 08:54:49 90.4 82.0-99.5 (fL) Final MCH 08/01/2023 08:54:49 29.8 27.0-34.0 (pg) Final MCHC 08/01/2023 08:54:49 32.9 32.0-36.0 (g/dL) Final RDW 08/01/2023 08:54:49 12.7 11.5-15.5 (%) Final Platelets 08/01/2023 08:54:49 244 140-400 (K/uL) Final MPV 08/01/2023 08:54:49 10.6 6.6-11.1 (fL) Final Nucleated erythrocytes/100 leukocytes [Ratio] in Blood by Automated count 08/01/2023 08:54:49 0 <=0 (/100 WBCs) Final Performing Location LABORATORY [facility] [place] - [address] [place] [address]
--- OUTSIDE RECORDS SUMMARY | 2023-08-22 22:26 | External Medical Summary | Summary of Care ---
Author Name Unknown Organization [facility] Address [address] [facility] [place] [address] Phone [phone] Care Team Providers Care Public Speaking Instructor Name Role Phone Gladys Peres PA-C Primary Care Provider Reason for Visit * Reason Comments Pain Encounter Details Date Type Department Care Team (Late st Contact Info) Description 06/20/2023 11:15 AM EDT Office Visit [facility] [address] [place] [phone] Debbie Medrano CRNP [address] [place] [address] [place] [phone] Flank pain* Allergies No known active allergiesdocumented as of this encounter (statuses as of 07/07/2023) Medications Medication Sig Dispensed Refills Start Date [...] HIGH CHOLESTEROL 90 Tablet 1 3 Active documented as of this encounter (statuses as of 07/07/2023) Active Problems Problem Noted Date Diagnosed Date [...] as of this encounter (statuses as of 07/07/2023) Resolved Problems Problem Noted Date Diagnosed Date Resolved Date Syncope and collapse 05/23/2019 019 Gross hematuria 05/21/2019 05/24/[address] 05/21/201905/04 Syncopal episodes 05/21/2019 05/23/2019 Malignant neoplasm of bladder 03/10/2018 03/10/2018 MINE (acute kidney injury) 01/17/2017 Syncope due to orthostatic hypotension 01/17/2017 09/10/2017 Dehydration 01/17/2017 09/10/2017 documented as of this encounter (statuses as of 07/07/2023) Immunizations Name Administration Dates Next Due COVID-19 mRNA, LNP-s, No Pre serve, 2-Dose Series ([employer]) 06/23/2021,11/21/2020,10/26/2020 Pneumococcal Conjugate Vacc, 13 Valent (Prevnar) [...] Sign Reading Time Taken Comments Blood Pressure 166/76 06/20/2023 11:33 AM EDT Pulse 64 06/20/2023 11:33 AM EDT Temperature 35.9 C (96.6 F) 06/20/2023 11:33 AM E DT Respiratory Rate 16 06/20/2023 11:33 AM EDT Oxygen Saturation 96% 06/20/2023 11:33 AM EDT Inhaled Oxygen Concentration - - Weight 89.4 kg (197 lb 3.2 oz) 06/20/2023 11:33 AM EDT Height - - Body Mass Index 30.88 04/10/2023 2:58 PM EDT documented in this encounter Functional [...] as of this encounter Progress Notes * Debbie Medrano CRNP - 06/20/2023 11:25 AM EDT [facility], [facility] [address] [place] [address] Name: Vincent Latham Jr. Date: 06/20/2023 Time: 11:27 AM Chief Complaint Pain History of Present Illness Vincent Latham Jr. is a 77 year old male patient has left flank pain which started 3 days ago. 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 Denies any nausea vomiting with this. He states the pain is in the left flank. He denies any urinary symptoms at this time. I personally reviewed prior medical records with the following pertinent findings Medical History Vincent Latham Jr. 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 Patient Active Problem List Diagnosis Code Pure hypercholesterolemia E78.00 History of prostate cancer Z85.46 HTN, goal below 150/90 I10 Lumbar degenerative disc disease M51.36 Transitional cell bladder cancer (HCC) C67.9 Mitral valve insufficiency and aortic valve insufficiency I08.0 Chronic kidney disease, stage 3a (HCC) N18.31 Prediabetes R73.03 Right inguinal hernia K40.90 Social History Vincent Latham Jr. reports that he has never smoked. He has never used smokeless tobacco. He reports that he does not drink alcohol and does not use drugs. Family History Vincent Latham Jr. family history includes Cancer in his father and mother; Heart Disorder in his father. Current Medications Current medications reviewed. Review of Systems Constitutional: Negative. HENT: Negative. Eyes: Negative. Respiratory: Negative. Gastrointestinal: Positive for abdominal pain. Genitourinary: Negative. Musculoskeletal: Positive for back pain. Allergic/Immunologic: Negative. Neurological: Negative. Hematological: Negative. BP 166/76 (BP Site: Left Arm, BP Position: Sitting, BP Cuff Size: Regular) | Pulse 64 | Temp 35.9 C (96.6 F) (Tympanic) | Resp 16 | Wt 89.4 kg (197 lb 3.2 oz) | SpO2 96% | BMI 30.88 kg/m | BSA 2.06 m Physical Exam HENT: Head: Normocephalic. Nose: Nose normal. Mouth/Throat: Mouth: Mucous membranes are moist. Eyes: Pupils: Pupils are equal, round, and reactive to light. Cardiovascular: Rate and Rhythm: Normal rate. Abdominal: General: Abdomen is flat. Tenderness: There is abdominal tenderness. Comments: Left upper quad Musculoskeletal: General: Normal range of motion. Cervical back: Normal range of motion. Skin: General: Skin is warm. Neurological: General: No focal deficit present. Mental Status: He is alert. Psychiatric: Mood and Affect: Mood normal. STUDIES: I personally reviewed labs and other studies with the following pertinent findings Recent Labs Units 06/20/23 1330 06/20/23 1329 06/18/23 0000 04/03/23 1047 03/11/23 2035 10/23/22 1012 HGB - [facility] g/dL -- 13.9* -- 13.9* 14.9 14.4 HEMOGLOBIN-OUTSIDE LAB G/DL -- -- 13.8* -- -- -- HCT - [facility] % -- 40.5 -- 42.4 43.6 42.7 WBC AUTO - [facility] K/uL -- 8.09 -- 5.73 7.97 4.96 PLATELET AUTO - [facility] K/uL -- 201 -- 212 145 197 SODIUM - [facility] mmol/L 136 -- -- 138 140 140 POTASSIUM - [facility] mmol/L 4.0 -- -- 4.2 4.0 4.1 POTASSIUM-OUTSIDE LAB MMOL/L -- -- 4.0 -- -- -- CHLORIDE - [facility] mmol/L 100 -- -- 100 103 104 CO2 - [facility] mmol/L 26 -- -- 27 25 26 BUN - [facility] mg/dL 22* -- -- 21* 26* 26* CREATININE - [facility] mg/dL 1.1 -- -- 1.1 1.2 1.2 CREATININE-OUTSIDE LAB MG/DL -- -- 1.07 -- -- -- PROTEIN - [facility] g/dL 6.9 -- -- -- 7.1 6.4 BILIRUBIN, TOTAL - [facility] mg/dL 0.4 -- -- -- 0.6 0.5 ALKALINE PHOSPHATASE - [facility] U/L 99 -- -- -- 93 81 AST - [facility] U/L 25 -- -- -- 28 27 ALT - [facility] U/L 20 -- -- -- 24 27 Assessment and Plan Problem List Items Addressed This Visit None Visit Diagnoses Flank pain - Primary With patient's history chronic renal disease carcinoma of prostate and his age risk factors are escalated for various reasons for his flank pain. Discussed with triaged officer at [facility] Dr. Barnett. Patient is [facility] to go [facility]. Patient was sent to [facility] for further evaluation in the ER since we do not have CT scan availble at this time and pt hascomplex history that would require a ER workup. I feel patient is stable and is reliable he can go by private vehicle. I spent a total of 15 min on 06/20/2023 in review of patients record and previously obtained information, in person and appropriate medical visit, discussion and education of plan with patient and/or caregiver, placing of orders for tests/referrals/procedures as medically necessary, and documentation of pertinent clinical information in the patients medical record for their visit today documented in this encounter Nursing Notes * Luciana Blanca MED ASSIST - 06/20/2023 11:31 AM EDT Patient identified by name and . Vincent Latham Jr. is a 77 year old male who presents to walk-in clinic today complaining of pain in the left lower side of his back. Recently had a tumor removed from his bladder Symptoms started Friday Pt has tried Tylenol This patient is accompanied in room at this time by . BP 166/76 (BP Site: Left Arm, BP Position: Sitting, BP Cuff Size: Regular) | Pulse 64 | Temp 35.9 C (96.6 F) (Tympanic) | Resp 16 | Wt 89.4 kg (197 lb 3.2 oz) | SpO2 96% | BMI 30.88 kg/m | BSA 2.06 m PHYLLIS Guzman 06/20/2023 11:35 AM Room 2 documented in this encounter Plan of Treatment Upcoming Encounters Date Type Department Care Team (Late st Contact Info) Description 08/01/2023 9:00 AM EST Laboratory Laboratory, [place] [address] [facility] [address] [place] [phone] [place], Lab [address] [facility] [address] [place] [address] 08/12/2023 7:40 AM EST Office Visit [facility] [address] [place] [address] Gladys Peres PA-C [address] [address] 08/20/2023 10:45 AM EST Hospital Encounter [facility] Endoscopy [address], [place] [phone] Marta Cates DO [address] [place] [address] 08/20/2023 10:45 AM EST - 08/20/2023 11:15 AM EST Surgery [facility], Endoscopy [address], [place] [phone] Marta Cates DO [address] [place] [address] COLONOSCOPY FLEXIBLE PROXIMAL DIAGNOSTIC Scheduled Procedures Name Priority Associated Diagnoses Date/Ti me COLONOSCOPY FLEXIBLE PROXIMAL DIAGNOSTIC Encounter for screening colonoscopy 08/20/2023 10:45 AM EST Health Maintenance Due Date Last Done Comments COLONOSCOPY-EVERY 5 YRS AGES 18-100 10/01/2022 10/01/2017, 03/31/2012 COVID-19 Vaccine (2022- season) 2023 06/23/2021, 11/21/2020, 10/26/2020 CKD PHOS USE SMARTSET 52169 10/23/2023 10/23/2022, 0 09/04/2021 HbA1c 10/23/2023 10/23/2022, 0111/2021, 06/05/2021, Additional history exists GFR 12/20/2023 06/20/2023, 06/01, 04/03/2023, Additional history exists Albumin/Creatinine Ratio 06/03/2024 06/03/2023 CKD HGB USE SMARTSET 41888 06/20/202406/20, 06/20/2023, 06/18/2023, Additional history exists Depression [...] as of this encounter Visit Diagnoses Diagnosis Flank pain- Primary Abdominal pain, unspecified site Encounter for screening colonoscopy Special screening for [...] the patient have Health Care Power of Transmission Worker? Yes, not currently available Code Status [...] and were consensually agreed upon. Care Teams Public Speaking Instructor Relationship Specialty Start Date End Date Gladys Peres PA-C [address] [place] [address] [address] PCP - General Physician Assistant Media Buyer 02/26/21 documented as of this encounter"
--- OUTSIDE RECORDS SUMMARY | 2023-08-22 22:26 | External Medical Summary | Summary of Care ---
Author Name Unknown Organization [facility] Address [address] [place] [place] [address] Phone [phone] Care Team Providers Care Compensation/Benefits Specialist Name Role Phone Gladys Peres PA-C Primary Care Provider Reason for Visit * Reason Comments Follow Up Pt arrived for a fol low up and voiced no concerns at this time. Encounter Details Date Type Department Care Team (Latest Contact Info) Description 08/12/2023 7:40 AM EST Office Visit [facility] [address] [place] [address] Gladys Peres PA-C [address] [place] [address] HTN, goal below 150/90*; Chronic kidney disease, stage 3a (HCC); Prediabetes; Pure hypercholesterolemia Allergies No known active allergiesdocumented as of [...] 0 Active hydroCHLOROthiazide 25 MG Oral Tablet (Hydrodiuril)Indications :HTN, goal below 150/90 Take 1 Tablet by [...] Active Rosuvastatin Calcium 10 MG Oral Tablet (Crestor)Indications:Pur e hypercholesterolemia TAKE ONE TABLET BY MOUTH AT BEDTIME FOR HIGH CHOLESTEROL 90 Tablet 1 3 Active Acetaminophen 500 MG Oral Tablet (Tylenol) Take 2 Tablets by mouth every 4 hours as needed. 0 3 023 Active Cephalexin 500 MG Oral Capsule Take 1 Capsule by mouth in the morning and 1 Capsule at noon and 1 Capsule in the evening and 1 Capsule before bedtime. Do all this for 7 days. 28 Capsule 0 3 023 Discontin ued(Medic ation List Clean Up) Cyclobenzaprine HCl 5 MG Oral Tablet (Flexeril) Take 1 tablets up to 3 times a day as needed for muscle spasms. 30 Tablet 0 3 023 Discontin ued(Medic ation List Clean Up) documented as of this encounter (statuses as [...] mRNA, LNP-s, No Pre serve, 2-Dose Series ([employer]) 06/23/2021,11/21/2020,10/26/2020 Pneumococcal Conjugate Vacc, 13 Valent (Prevnar) [...] Sign Reading Time Taken Comments Blood Pressure 132/82 08/12/2023 7:56 AM EST Pulse 66 08/12/2023 7:36 AM EST Temperature 36.2 C (97.2 F) 08/12/2023 7:36 AM ES T Respiratory Rate 12 08/12/2023 7:36 AM EST Oxygen Saturation 96% 08/12/2023 7:36 AM EST Inhaled Oxygen Concentration - - Weight 83.4 kg (183 lb 12.8 oz) 08/12/2023 7:36 AM EST Height 170.2 cm (5' 7.01") 08/12/2023 7:36 AM ES T Body Mass Index 28.78 08/12/2023 7:36 AM EST documented in this encounter Functional Status [...] as of this encounter Progress Notes * Gladys Peres PA-C - 08/12/2023 7:48 AM EST Subjective: Vincent Jr Latham Jr. is a 78 year old male. Chief Complaint Patient presents with Follow Up Pt arrived for a follow up and voiced no concerns at this time. HPI: Patient presents for 6 month routine OV of hyperlipidemia and hypertension. Overall patient has been feeling well and offers no specific complaints or concerns. He is scheduled for for his colonoscopy 08/20/23 He is s/p arthroplasty of the the left knee. He broke the post off the previous knee replacement and this needed repaired. He is doing well without incident. CKD3 is mostly controlled. He does not watch diet and he admits to drinking excessive Mtn Dew. Hyperlipidemia and hypertension. Taking medication as prescribed, see med list. No medication side effects noted -. Patient is exercising -. Denies associated chest discomfort, chest heaviness, chest pressure, chest tightness, edema, palpitations and shortness of breath. BP has been monitored outside of office: stable. Last lipid profile see below. Latest Ref Rng 10/23/2022 03/11/2023 04/03/2023 06/20/2023 08/01/2023 CHEMISTRY:LAB Sodium 135 - 146 mmol/L 140 140 138 136 140 Potassium 3.5 - 5.1 mmol/L 4.1 4.0 4.2 4.0 4.5 Chloride 98 - 107 mmol/L 104 103 100 100 101 CO2 22 - 32 mmol/L 26 25 27 26 25 Anion Gap 7 - 15 mmol/L 10 12 11 10 14 BUN 6 - 20 mg/dL 26 (H) 26 (H) 21 (H) 22 (H) 30 (H) Creatinine 0.6 - 1.2 mg/dL 1.2 1.2 1.1 1.1 1.3 (H) Glucose 70 - 120 mg/dL 101 122 (H) 116 124 (H) 107 Calcium 8.4 - 10.2 mg/dL 10.0 9.8 9.8 9.9 10.1 Magnesium 1.5 - 2.6 mg/dL 1.9 Phosphorus 2.5 - 4.8 mg/dL 3.5 4.2 Ketone, Urine Negative mg/dL Trace ! Negative Negative ALT 10 - 50 U/L 27 24 20 75 (H) Bilirubin, Total <=1.2 mg/dL 0.5 0.6 0.4 0.8 Bilirubin, Direct 0 - 0.3 mg/dL Alkaline Phosphatase 35 - 130 U/L 81 93 99 155 (H) AST 10 - 50 U/L 27 28 25 51 (H) Lipase 13 - 60 U/L 25 Protein 6.0 - 8.3 g/dL 6.4 7.1 6.9 6.5 Albumin 3.8 - 5.0 g/dL 4.5 4.4 4.1 4.2 LIPIDS:LAB CHOLESTEROL <200 mg/dL 151 162 LDL (CALCULATED) <=129 mg/dL 94 91 LDL DIRECT(MEASURED) 0 - 129 mg/dL HDL-CHOLESTEROL >39 mg/dL 46 56 TRIGLYCERIDES <=174 mg/dL 56 75 Cholesterol-HDL Ratio THYROID:LAB TSH 0.27 - 4.20 uIU/mL 1.37 1.13 Legend: (H) High ! Abnormal PMH: Patient Active Problem List Diagnosis Code Pure hypercholesterolemia E78.00 History of prostate cancer Z85.46 HTN, goal below 150/90 I10 Lumbar degenerative disc disease M51.36 Transitional cell bladder cancer (HCC) C67.9 Mitral valve insufficiency and aortic valve insufficiency I08.0 Chronic kidney disease, stage 3a (HCC) N18.31 Prediabetes R73.03 Right inguinal hernia K40.90 Current Outpatient Medications Medication Sig Dispense Refill Diclofenac Sodium (VOLTAREN) 1 % gel apply 2gm topically to affected area three times a day 2 Tube 5 Multiple Vitamins-Minerals (MULTIVITAMIN ADULT) TABS Aspirin 81 MG Oral Tablet Delayed Release Take 1 Tablet by mouth in the morning. Starting 09/04/2019. hydroCHLOROthiazide 25 MG Oral Tablet (Hydrodiuril) Take 1 Tablet by mouth in the morning. 90 Tablet 3 Naproxen 500 MG Oral Tablet (Naprosyn) TAKE ONE TABLET BY MOUTH TWICE A DAY NEEDED FOR PAIN. TAKE WITH FOOD. 180 Tablet 1 dilTIAZem HCl ER Coated Beads 360 MG Oral Capsule Extended Release 24 Hour TAKE ONE CAPSULE BY MOUTH EVERY MORNING ;DO NOT CUT, CRUSH, OR CHEW 90 Capsule 3 Losartan Potassium 100 MG Oral Tablet (Cozaar) TAKE ONE TABLET BY MOUTH EVERY MORNING 90 Tablet 3 Rosuvastatin Calcium 10 MG Oral Tablet (Crestor) TAKE ONE TABLET BY MOUTH AT BEDTIME FOR HIGH CHOLESTEROL 90 Tablet 1 Acetaminophen 500 MG Oral Tablet (Tylenol) Take 2 Tablets by mouth every 4 hours as needed. No current facility-administered medications for this visit. Past Medical History: Diagnosis Date Carcinoma in situ of prostate adenocarcinoma Carpal tunnel syndrome, bilateral Chronic kidney disease, stage 3a (HCC) HTN, goal below 150/90 Mitral valve insufficiency and aortic valve insufficiency Pure hypercholesterolemia Right inguinal hernia Syncope due to orthostatic hypotension 01/17/2017 Transitional cell carcinoma of bladder (HCC) 08/27/2016 Past Surgical History: Procedure Laterality Date ARTHROPLASTY KNEE TOTAL 10/2009, 11/2009 Knee replacement , B/L CARPAL TUNNEL SURGERY CYSTOSCOPY, REMOVAL OF CLOTS N/A 08/30/2020 CYSTOSCOPY WITH IRRIGATION AND EVACUATION OF CLOTS, FULGERATION performed by Slime Zamudio OR [facility] CYSTOSCOPY/TREAT SML BLADDER TUMOR N/A 03/21/2017 CYSTOSCOPY, TRANSURETHRAL RESECTION OF BLADDER TUMOR performed by Aric Godinez MD at OR [facility] CYSTOSCOPY/TREAT SML BLADDER TUMOR N/A 02/05/2018 CYSTOSCOPY, TRANSURETHRAL RESECTION OF BLADDER performed by Aric Godinez MD at OR [facility] REMOVAL OF APPENDIX Review of patient's allergies indicates: No Known Allergies Family History Problem Relation Age of Onset Cancer Father prostate Cancer Mother pancreatic Heart Disorder Father Family Status Relation Status Mo pancreatic cancer Fa Alive cad, carotid disease, prostate cancer Bro Alive Social History Tobacco Use Smoking status: Never Smokeless tobacco: Never Substance Use Topics Alcohol use: No Vaping/E-Cigarette Use Vaping/E-Cigarette Use Never User Vaping/E-Cigarette Substances Vaping/E-Cigarette Devices Review of Systems: General: No change in weight, No weakness, No fatigue, and No fevers, sweats, or chills Head: No significant headache and No recent significant head injury Ears: No recent change in hearing, No tinnitus or vertigo, No ear pain, and No ear discharge Throat/Oropharynx: No teeth or gum problems, No bleeding gums, No tongue complaints, No sore throat, and No recent change in voice or hoarseness Respiratory: No cough, sputum, or hemoptysis, No wheezing, No shortness of breath, and No recent change in breathing Cardiac: No chest pain, No shortness of breath, No dyspnea on exertion, No orthopnea, No paroxysmalnocturnal dyspnea, No edema, No palpitations, and No syncope Gastrointestinal: No dysphagia, No significant heartburn, No significant change in appetite, No nausea, vomiting, diarrhea, or constipation, No hematemesis, No blood in stools or black tarry stools, No abdominal bloating or early satiety, and No abdominal pain Urinary: No urinary frequency, No dysuria, No hematuria, No urinary urgency, No polyuria, No nocturia, No incontinence, No hesitancy, No sensation of incomplete voiding, and follows with urology for bladder cancer and is cleared for 6 months Neurologic: No fainting or blackouts, No seizures, No paralysis or focal weakness, No numbness or tingling, No tremors, and No significant problems with memory Skin: No edema, No rash, and No itching Extremities: No pain, redness or swelling on the joints Psychiatric: No depression, No anxiety, and No psychosis Objective: BP 132/82 | Pulse 66 | Temp 36.2 C (97.2 F) (Tympanic) | Resp 12 | Ht 1.702 m (5' 7.01") | Wt 83.4 kg (183 lb 12.8 oz) | SpO2 96% | BMI 28.78 kg/m | BSA 1.99 m Physical Exam: General: alert, healthy, and no distress Head: Normocephalic, No masses, lesions, tenderness or abnormalities Ears: External ears normal, Canals clear, TM's Normal Oropharynx: no exudate, no erythema, lips, buccal mucosa, and tongue normal, and mucous membranes are moist Heart: regular rate & rhythm, no gallops, and 3/6 systolic ejection medium pitched harsh murmuraortic area Lungs: chest symmetric with normal AP diameter, no chest deformities noted, no chest wall tenderness, lungs clear to auscultation Pulses: radial=2/4, carotid=2/4 w/o bruits, posterior tibial=2/4, dorsalis pedis=2/4 Extremities: less than 2 second capillary refill, no joint deformities, effusion, or inflammation Neuro Exam: alert & oriented x 3 with fluent speech, no focal motor/sensory deficits, gait normal, reflexes normal and symmetric Skin: skin color, texture, turgor are normal, no rashes or significant lesions Musculoskeletal: Joint Stiffness, Pain, and Restriction of Motion not appreciated ASSESSMENT/PLAN: HTN, goal below 150/90 (Primary) Diltiazem ER 360mg daily HCTZ 25mg daily Losartan 100mg daily Chronic kidney disease, stage 3a (HCC) Increase water intake Prediabetes Needs to stop the Mtn Dew and drink more fluids. Pure hypercholesterolemia Rosuvastatin 10mg daily Follow-up: Return in about 6 months (around 02/11/2024). | Check-out note: Labs today Gladys Peres PA-C documented in this encounter Nursing Notes * Yelena Tinoco LPN - 08/12/2023 7:36 AM EST Chief Complaint Patient presents with Follow Up Pt arrived for a follow up and voiced no concerns at this time. documented in this encounter Plan of Treatment Upcoming Encounters Date Type Department Care Team (Late st Contact Info) Description 08/20/2023 10:45 AM EST Hospital Encounter [facility] Endoscopy [address] [phone] Marta Cates DO [address] [place] [address] 08/20/2023 10:45 AM EST - 08/20/2023 11:15 AM EST Surgery [facility], Endoscopy [address] [phone] Marta Cates DO [address] [place] [address] COLONOSCOPY FLEXIBLE PROXIMAL DIAGNOSTIC 02/12/2024 7:40 AM EDT Office Visit [facility] [address] [place] [phone] Gladys Peres PA-C [address] [place] [address] Scheduled Procedures Name Priority Associated Diagnoses Date/Ti me COLONOSCOPY FLEXIBLE PROXIMAL DIAGNOSTIC Encounter for screening colonoscopy 08/20/2023 10:45 AM EST Health Maintenance Due Date Last Done Comments COLONOSCOPY-EVERY 5 YRS AGES 18-100 10/01/2022 10/01/2017, 03/31/2012 COVID-19 Vaccine ( season) 2023 06/23/2021, 11/21/2020, 10/26/2020 GFR 01/31/2024 08/01/2023, 06/02, 06/18/2023, Additional history exists Albumin/Creatinine Ratio 06/03/2024 06/03/2023 Depression Screening 06/27/2024 06/27/2023 CKD HGB USE SMARTSET [id number] 08/01/202408/01, 08/01/2023, 06/20/2023, Additional history exists CKD PHOS USE SMARTSET 94016 08/01/202409/2022, 10/23/2022, 09/04/2021 HbA1c 08/01/2024 08/01/2023, 10/03, [...] as of this encounter Visit Diagnoses Diagnosis HTN, goal below 150/90- Primary Chronic kidney disease, stage 3a (HCC) Prediabetes Other abnormal glucose Pure hypercholesterolemia Encounter for screening colonoscopy Special screening for [...] the patient have Health Care Power of Switchboard And Control Room Operator? Yes, not currently available Code Status History [...] and were consensually agreed upon. Care Teams Compensation/Benefits Specialist Relationship Specialty Start Date End Date Gladys Peres PA-C [address] [place] [phone] PCP - General Physician Business Objects Analyst 02/26/21 documented as of this encounter
--- OUTSIDE RECORDS SUMMARY | 2023-08-22 22:26 | External Medical Summary | Summary of Care ---
Author Name Unknown Organization [facility] Address [address] [place] [address] Phone [phone] Care Team Providers Care Haircutter Name Role Phone Gladys Peres PA-C Primary Care Provider Reason for Visit * Reason Onset Date Comments Order Request 07/30/2023 Encounter Details Date Type Department Care Team (Late st Contact Info) Description 07/30/[address] [facility] [address] [place] [phone] Gladys Peres PA-C [address] [place] [address] Order Request Allergies No [...] mRNA, LNP-s, No Pre serve, 2-Dose Series ([employer]) 06/23/2021,11/21/2020,10/26/2020 Pneumococcal Conjugate Vacc, 13 Valent (Prevnar) [...] encounter Miscellaneous Notes * Telephone Encounter - Marta Fitzpatrick OSA - 07/30/2023 7:46 AM EST Patient is scheduled Friday for labs please place orders if labs are needed at this time. Thank you documented in this encounter Plan of Treatment Upcoming Encounters Date Type Department Care Team (Late st Contact Info) Description 08/01/2023 9:00 AM EST Laboratory Laboratory, [place] 27 [facility] [address] [place] [phone] [place], [facility] [place] [address] [place] [address] 08/12/2023 7:40 AM EST Office Visit [facility] [address] [place] [phone] Gladys Peres PA-C [address] [place] [address] 08/20/2023 10:45 AM EST Hospital Encounter ENDO [facility] [address] [phone] Marta Cates DO [address] [place] [address] 08/20/2023 10:45 AM EST - 08/20/2023 11:15 AM EST Surgery ENDO [facility], Endoscopy [address] [place] [address] Marta Cates DO [address] [place] [address] COLONOSCOPY FLEXIBLE PROXIMAL DIAGNOSTIC Scheduled Procedures Name Priority Associated Diagnoses Date/Ti me COLONOSCOPY FLEXIBLE PROXIMAL DIAGNOSTIC Encounter for screening colonoscopy 08/20/2023 10:45 AM EST Health Maintenance Due Date Last Done Comments COLONOSCOPY-EVERY 5 YRS AGES 18-100 10/01/2022 10/01/2017, 03/31/2012 COVID-19 Vaccine (2022- season) 2023 06/23/2021, 11/21/2020, 10/26/2020 CKD PHOS USE SMARTSET 62134 10/23/2023 10/23/2022, 0 09/04/2021 HbA1c 10/23/2023 10/23/2022, 0111/2021, 06/05/2021, Additional history exists GFR 12/20/2023 06/20/2023, 06/01, 04/03/2023, Additional history exists Albumin/Creatinine Ratio 06/03/2024 06/03/2023 CKD HGB USE SMARTSET 95739 06/20/202406/20, 06/20/2023, 06/18/2023, Additional history exists Depression Screening 06/27/2024 06/27/2023 DTaP,Tdap,and Td Vaccines (2 - Td or Tdap) 02/24/2025 02/24/2015 Pneumococcal Vaccine: 65+ Years Completed 03/05/2017, 02/22/2016 Zoster Vaccines Completed 10/11/2020, 0801/2020, 02/22/2016 Influenza Vaccine (FLU shot) Completed 10/2022, [...] the patient have Health Care Power of Hair Spinning Machine Operator? Yes, not currently available Code Status [...] and were consensually agreed upon. Care Teams Haircutter Relationship Specialty Start Date End Date Gladys Peres PA-C [address] [place] [phone] PCP - General Physician Claim Attorney 02/26/21 documented as of this encounter
--- OUTSIDE RECORDS SUMMARY | 2023-08-22 22:26 | External Medical Summary ---
Author Name Unknown Address Unknown Organization K01:[facility] - [address] [place] [address] Laboratory Report Ordering Provider Test Date Status MILI RAMIREZ 08/01/2023 08:54:49 Final Observation Date Value Abnormality Reference (Units ) Status Phosphate 08/01/2023 08:54:49 4.2 2.5-4.8 (m g/dL) Final Performing Location [facility] - [address] [place] [address]
--- OUTSIDE RECORDS SUMMARY | 2023-08-22 22:26 | External Medical Summary | Summary of Care ---
Author Name Unknown Organization [facility] Address [address] [place] [address] Phone [phone] Care Team Providers Care Warehouse And Receiving Supervisor Name Role Phone Gladys Peres PA-C Primary Care Provider Reason for Visit * Reason Onset Date Comments Test Results 08/12/2023 Encounter Details Date Type Department Care Team (Late st Contact Info) Description 08/12/2023 Telephone [facility] [address] [place] [address] Gladys Peres PA-C [address] [place] [address] Test Results Allergies No known active allergiesdocumented as of this encounter (statuses as of 08/13/2023) Medications Medication Sig Dispensed Refills Start Date [...] as of this encounter (statuses as of 08/13/2023) Active Problems Problem Noted Date Diagnosed Date [...] as of this encounter (statuses as of 08/13/2023) Resolved Problems Problem Noted Date Diagnosed Date Resolved Date Syncope and collapse 05/23/2019 019 Gross hematuria 05/21/2019 05/24/[address] 05/21/201905/04 Syncopal episodes 05/21/2019 05/23/2019 Malignant neoplasm of bladder 03/10/2018 03/10/2018 MINE (acute kidney injury) 01/17/2017 Syncope due to orthostatic hypotension 01/17/2017 09/10/2017 Dehydration 01/17/2017 09/10/2017 documented as of this encounter (statuses as of 08/13/2023) Immunizations Name Administration Dates Next Due COVID-19 mRNA, LNP-s, No Pre serve, 2-Dose Series (Rexly) 06/23/2021,11/21/2020,10/26/2020 Pneumococcal Conjugate Vacc, 13 Valent (Prevnar) [...] encounter Miscellaneous Notes * Telephone Encounter - Yelena Tinoco LPN - 08/13/2023 8:18 AM EST Pt aware and verbalized understanding. No questions at this time. * Telephone Encounter - Gladys Peres PA-C - 08/12/2023 6:08 PM EST Labs are much better. No medication changes. Drink more water less Mtn Dew, Recheck in 6 months documented in this encounter Plan of Treatment Upcoming Encounters Date Type Department Care Team (Late st Contact Info) Description 08/20/2023 10:45 AM EST Hospital Encounter [facility]O [facility], [address]oscopy [address] [phone] Marta Cates DO [address] [place] [address] 08/20/2023 10:45 AM EST - 08/20/2023 11:15 AM EST Surgery ENDO [facility], Endoscopy [address] [phone] Marta Cates DO [address] [place] [address] COLONOSCOPY FLEXIBLE PROXIMAL DIAGNOSTIC 02/12/2024 7:40 AM EDT Office Visit [facility] [address] [place] [address] Gladys Peres PA-C [address] [place] [address] Scheduled Procedures Name Priority Associated Diagnoses Date/Ti me COLONOSCOPY FLEXIBLE PROXIMAL DIAGNOSTIC Encounter for screening colonoscopy 08/20/2023 10:45 AM EST Health Maintenance Due Date Last Done Comments COLONOSCOPY-EVERY 5 YRS AGES 18-100 10/01/2022 10/01/2017, 03/31/2012 COVID-19 Vaccine (2022- season) 2023 06/23/2021, 11/21/2020, 10/26/2020 GFR 02/11/2024 08/12/2023, 09/2022, 06/20/2023, Additional history exists Albumin/Creatinine Ratio 06/03/2024 06/03/2023 Depression Screening 06/27/2024 06/27/2023 CKD HGB USE SMARTSET 33652 08/01/202408/01, 08/01/2023, 06/20/2023, Additional history exists CKD PHOS USE SMARTSET 18846 08/01/202409/2022, 10/23/2022, 09/04/2021 HbA1c 08/01/2024 08/01/2023, 10/03, [...] the patient have Health Care Power of Courier? Yes, not currently available Code Status History [...] Code 03/21/2017 11:11 AM 03/21/2017 5:53 PM Thi s order reflects the patients wishes and were consensually agreed upon. Full Code 03/21/2017 7:58 AM 03/21/2017 11:11 AM This order reflects the patients wishes and were consensually agreed upon. Care Teams Warehouse And Receiving Supervisor Relationship Specialty Start Date End Date Gladys Peres PA-C [address] [place] [phone] PCP - General Physician Retail Sales Lead 02/26/21 documented as of this encounter
--- OUTSIDE RECORDS SUMMARY | 2023-08-22 22:26 | External Medical Summary | Summary of Care ---
Author Name Unknown Organization [facility] Address [address] [place] [address] Phone [phone] Care Team Providers Care Fancy Packer Name Role Phone Gladys Peres PA-C Primary Care Provider Reason for Visit * Reason Comments Outpatient Testing Encounter Details Date Type Department Care Team (Late st Contact Info) Description 08/01/2023 9:00 AM EST Laboratory Laboratory, [place] 27 [facility] [place] [address] [place] [address] [place], Lab [facility] [place] [address] [place] [address] Chronic kidney disease, stage 3a (HCC); Prediabetes; Pure hypercholesterolemia; History of prostate cancer Allergies No known active allergiesdocumented as of this encounter (statuses as of 08/01/2023) Medications Medication Sig Dispensed Refills Start Date [...] as of this encounter (statuses as of 08/01/2023) Active Problems Problem Noted Date Diagnosed Date [...] as of this encounter (statuses as of 08/01/2023) Resolved Problems Problem Noted Date Diagnosed Date Resolved Date Syncope and collapse 05/23/2019 019 Gross hematuria 05/21/2019 05/24/[address] 05/21/201905/04 Syncopal episodes 05/21/2019 05/23/2019 Malignant neoplasm of bladder 03/10/2018 03/10/2018 MINE (acute kidney injury) 01/17/2017 Syncope due to orthostatic hypotension 01/17/2017 09/10/2017 Dehydration 01/17/2017 09/10/2017 documented as of this encounter (statuses as of 08/01/2023) Immunizations Name Administration Dates Next Due COVID-19 mRNA, LNP-s, No Pre serve, 2-Dose Series ([employer]) 06/23/2021,11/21/2020,10/26/2020 Pneumococcal Conjugate Vacc, 13 Valent (Prevnar) [...] Description 08/12/2023 7:40 AM EST Office Visit [facility] [address] [place] [phone] Gladys Peres PA-C [address] [place] [address] 08/20/2023 10:45 AM EST Hospital Encounter [facility], Endoscopy [address] [phone] Marta Cates DO [address] [place] [address] 08/20/2023 10:45 AM EST - 08/20/2023 11:15 AM EST Surgery ENDO [facility], Endoscopy [address] [place] [phone] Marta Cates DO [address] [place] [address] COLONOSCOPY FLEXIBLE PROXIMAL DIAGNOSTIC Pending Results Name Type Priority Associated Diagnoses Date /Time COMPREHENSIVE METABOLIC PANEL Lab Routine Chronic kidney disease, stage 3a (HCC) Prediabetes Pure hypercholesterolemia History of prostate cancer 08/01/2023 8:54 AM EST LIPID PANEL WITH DIRECT LDL IF TG IS HIGH Lab Routine Chronic kidney disease, stage 3a (HCC) Prediabetes Pure hypercholesterolemia History of prostate cancer 08/01/2023 8:54 AM EST TSH Lab Routine Chronic kidney disease, stage 3a (HCC) Prediabetes Pure hypercholesterolemia History of prostate cancer 08/01/2023 8:54 AM EST HEMOGLOBIN A1C Lab Routine Chronic kidney disease, stage 3a (HCC) Prediabetes Pure hypercholesterolemia History of prostate cancer 08/01/2023 8:54 AM EST PHOSPHORUS Lab Routine Chronic kidney disease, stage 3a (HCC) Prediabetes Pure hypercholesterolemia History of prostate cancer 08/01/2023 8:54 AM EST CBC WITH WBC DIFFERENTIAL Lab Routine Chronic kidney disease, stage 3a (HCC) Prediabetes Pure hypercholesterolemia History of prostate cancer 08/01/2023 8:54 AM EST PSA Lab Routine Chronic kidney disease, stage 3a (HCC) Prediabetes Pure hypercholesterolemia History of prostate cancer 08/01/2023 8:54 AM EST CBC Lab Routine Chronic kidney disease, stage 3a (HCC) Prediabetes Pure hypercholesterolemia History of prostate cancer 08/01/2023 8:54 AM EST DIFFERENTIAL, AUTOMATED Lab Routine Chronic kidney disease, stage 3a (HCC) Prediabetes Pure hypercholesterolemia History of prostate cancer 08/01/2023 8:54 AM EST Scheduled Procedures Name Priority Associated Diagnoses Date/Ti me COLONOSCOPY FLEXIBLE PROXIMAL DIAGNOSTIC Encounter for screening colonoscopy 08/20/2023 10:45 AM EST Health Maintenance Due Date Last Done Comments COLONOSCOPY-EVERY 5 YRS AGES 18-100 10/01/2022 10/01/2017, 03/31/2012 COVID-19 Vaccine ( season) 2023 06/23/2021, 11/21/2020, 10/26/2020 CKD PHOS USE SMARTSET 56063 10/23/2023 10/23/2022, 0 09/04/2021 HbA1c 10/23/2023 10/23/2022, 01/11/2021, 06/05/2021, Additional history exists GFR 12/20/2023 06/20/2023, 06/01, 04/03/2023, Additional history exists Albumin/Creatinine Ratio 06/03/2024 06/03/2023 CKD HGB USE SMARTSET 76096 06/20/202406/20, 06/20/2023, 06/18/2023, Additional history exists Depression [...] Diagnoses Diagnosis Chronic kidney disease, stage 3a (HCC) Prediabetes Other abnormal glucose Pure hypercholesterolemia History [...] the patient have Health Care Power of Orthopedic Mechanic? Yes, not currently available Code Status History [...] and were consensually agreed upon. Care Teams Fancy Packer Relationship Specialty Start Date End Date Gladys Peres PA-C [address] [place] [phone] PCP - General Physician Legal Investigator 02/26/21 documented as of this encounter
--- OUTSIDE RECORDS SUMMARY | 2023-08-22 22:33 | External Medical Summary ---
Author Name Unknown Address Unknown Organization [id number]:[facility] - [address] [place] [address] Laboratory Report Ordering Provider Test Date Status ANTHONYJENSEN 08/22/2023 09:05:51 Preliminary Observation Date Value Abnormality Reference (Units) Status Bacteria identified in Specimen by Culture 08/22/2023 09:05:51 [id number]^GRAM POSITIVE COCCI IN CHAINS Very abnormal Preliminary From broth only Gram positiv e cocci in chains Bacteria identified in Specimen by Culture 08/22/2023 09:05:51 [id number]^GRAM POSITIVE COCCI IN CHAINS Very abnormal Preliminary From broth only Gram positiv e cocci in chains Gram Stain 08/22/2023 09:05:51 Many Polymor phonuclear leukocytes Very abnormal Preliminary Gram Stain 08/22/2023 09:05:51 Many Gram positive cocci Very abnormal Preliminary Test: Culture, Synovial Flui d, Aerobic and Anaerobic
Specimen Source: Knee, Left
Specimen Type: Synovial Fluid
Specimen Date: 08/22/2023 9:05 AM
Result Date: 08/22/2023 6:36 PM
Result Status: Preliminary result
Abnormal: Yes
Resulting Lab: [facility]ORY [facility]
[address] [facility] [place] [address]

CULTURE

From broth only Gram positive cocci in chains (Panic)

From broth only Gram positive cocci in chains (Panic)

STAIN

Many Polymorphonuclear leukocytes

Many Gram positive cocci

null Performing Location LABORATORY [facility] - [address] [facility] [address]
--- OUTSIDE RECORDS SUMMARY | 2023-08-22 22:33 | External Medical Summary ---
Author Name Unknown Address Unknown Organization K1F:LABORATORY [address] [place] [address] Laboratory Report Ordering Provider Test Date Status JENSEN CRUZ 08/22/2023 08:22:00 Preliminary Observation Date Value Abnormality Reference (Units) Status Bacteria identified in Specimen by Culture 08/22/2023 08:22:00 Pending Preliminary Gram Stain 08/22/2023 08:22:00 Anaerobic bottle Gram positive cocci in pairs and chains Very abnormal Preliminary This is an appended report. These results have been appended to a previously preliminary verified report.
Test: Culture, Blood
Specimen Source: Blood, Venous
Specimen Type: Blood
Specimen Date: 08/22/2023 8:22 AM
Result Date: 08/22/2023 7:20 PM
Result Status: Preliminary result
Abnormal: Yes
Resulting Lab: [facility]ATORY [facility]
[address] [place] [address]
[place] [address]

CULTURE

Pending

STAIN

Anaerobic bottle Gram positive cocci in pairs and chains

This is an appended report. These results have been appended to a
previously preliminary verified report.

null Performing Location LABORATORY [address] [place] [address]
--- OUTSIDE RECORDS SUMMARY | 2023-08-22 22:33 | External Medical Summary ---
Author Name Unknown Address Unknown Organization K1F:LABORATORY [address] [place] [address] Laboratory Report Ordering Provider Test Date Status JENSEN CRUZ 08/22/2023 08:16:00 Preliminary Observation Date Value Abnormality Reference (Units) Status Bacteria identified in Specimen by Culture 08/22/2023 08:16:00 Pending Preliminary Gram Stain 08/22/2023 08:16:00 Anaerobic bottle Gram positive cocci in pairs and chains Very abnormal Preliminary This is an appended report. These results have been appended to a previously preliminary verified report.
Test: Culture, Blood
Specimen Source: Blood, Venous
Specimen Type: Blood
Specimen Date: 08/22/2023 8:16 AM
Result Date: 08/22/2023 7:42 PM
Result Status: Preliminary result
Abnormal: Yes
Resulting Lab: [facility]ATORY [facility]
[address] [place] [address]
[place] [address]

CULTURE

Pending

STAIN

Anaerobic bottle Gram positive cocci in pairs and chains

This is an appended report. These results have been appended to a
previously preliminary verified report.

null Performing Location LABORATORY [address] [place] [address]
[2023-08-22] MEDS: PIPERACILLIN/TAZOBACTAM 4.5 GM in DEXTROSE 5% MINI-B 100 ML IV SCH (23:19)
[2023-08-23] MEDS: HYDROmorphone INJ 0.5 MG/0.5 ML SYR IV PRN ×2 (00:49→04:49)
[2023-08-23] MEDS: SODIUM CHLORIDE 0.9% 1,000 ML IV SCH ×2 (05:01→21:01)
[2023-08-23] MEDS: PIPERACILLIN/TAZOBACTAM 4.5 GM in DEXTROSE 5% MINI-B 100 ML IV SCH ×3 (05:01→21:01)
--- NOTE | 2023-08-23 07:08 | Anesthesiology Consultation ---
Date of Service August 23, 2023 Assessment & Plan Chart Review Chart Review: Acceptable Risk for Surgery and Patient NOT seen in Pre Admission Testing Consults Requested none ASA ASA3 Proposed Anesthesia Anesthesia Type: General Risk / Benefits Reviewed With: PT / POA / Parent / Guardian, Accepts Plan and Informed Consent Obtained History Surgery Operation Date: 08/23/23 07:30 Proposed Procedures p Left Knee Incision and Drainage, Poly Exchange Incision and Drainage - Calderon Vanegas MD Height/Weight Height: 5 ft 7 in Weight: 82.2 kg Allergies Allergy/AdvReac Type Severity Reaction Status Date / Time No Known Allergies Verified 12/22/09 14:59 Medications Home Medications Medication Instructions Recorded Confirmed Last Taken aspirin 81 mg capsule,delayed 81 mg PO DAILY 08/22/23 08/22/23 08/21/23 release diltiazem HCl 360 mg 360 mg PO DAILY 08/22/23 08/22/23 08/21/23 capsule,extended release 24 hr hydrochlorothiazide 25 mg tablet 25 mg PO DAILY 08/22/23 08/22/23 08/21/23 losartan 100 mg tablet 100 mg PO DAILY 08/22/23 08/22/23 08/21/23 pioaoqcb-jcwxqbui-azowz acid 400 1 tab PO DAILY 08/22/23 08/22/23 08/21/23 mcg-vit K 20 mcg-lycop 300 mcg tablet naproxen 500 mg tablet 500 mg PO BID PRN Pain 08/22/23 08/22/23 Unknown rosuvastatin 10 mg tablet 10 mg PO HS 08/22/23 08/22/23 08/21/23 Active Medications Generic Name Dose Route Start Last Admin Trade Name Ceasar PRN Reason Stop Dose Admin Acetaminophen 650 mg 08/22/23 16:18 08/23/23 04:58 Acetaminophen 325 Mg Tab PO 09/21/23 16:17 650 mg Q4H PRN Administration Fever or headache Docusate Sodium 100 mg 08/22/23 21:00 08/22/23 21:19 Docusate Sodium 100 Mg Cap PO 09/21/23 20:59 100 mg BID EMELIA Administration Hydromorphone HCl 0.25 mg 08/22/23 16:18 08/23/23 04:49 Hydromorphone Inj 0.5 Mg/0.5 Ml Syr IV 09/05/23 16:17 0.25 mg Q4H PRN Administration Pain Sodium Chloride 1,000 mls @ 75 mls/hr 08/22/23 16:00 08/23/23 05:01 Nss IV 09/21/23 15:59 75 mls/hr .[id number] EMELIA Administration Vancomycin HCl 1,250 mg/ 275 mls @ 125 mls/hr 08/22/23 22:00 08/22/23 23:20 Sodium Chloride IV 10/03/23 21:59 Infused Q24H EMELIA Infusion Protocol Piperacillin Sod/Tazobactam 100 mls @ 25 mls/hr 08/22/23 22:00 08/23/23 05:01 Sod 4.5 gm/ Dextrose IV 08/24/23 21:59 25 mls/hr Q8H EMELIA Administration Protocol Oxycodone HCl 5 mg 08/22/23 16:18 08/22/23 18:37 Oxycodone Hcl Ir 5 Mg Tab (Immediate Release) PO 09/05/23 16:17 5 mg Q4H PRN Administration Pain NPO Date Last Intake of Fluids: 08/22/23 Time Last Intake of Fluids: 22:45 Date Last Intake of Solids: 08/22/23 Past Medical History Medical History Bladder cancer Prostate cancer CKD (chronic kidney disease), stage III HLD (hyperlipidemia) HTN (hypertension) Exercise / Class Metabolic Activity II 4-5 Yardwork/Stairs/Walk up hill Past Family History Family History Other Cancer Past Surgical History Surgical History History of cystoscopy Hx of colonoscopy 08/20/23: Dr Cates History of appendectomy History of knee replacement Right knee. 2009. Dr Vanegas Left knee: 2009. Dr Vanegas Past Anesthesia History No Hx of Anesthesia Complications and No Family Hx of Anesthesia Complications History of PONV No Hx of PONV and No Hx of Motion Sickness Social History Smoking Status: Never smoker Hx Alcohol Use: No Hx Substance Use: No Review of Systems ROS Unobtainable: All systems reviewed & are unremarkable except as noted in HPI & below Physical Exam Vital Signs Last Vital Signs Temp 36.9 C 08/23/23 06:11 Pulse 102 H 08/23/23 04:56 Resp 18 08/23/23 04:56 BP 122/70 08/23/23 04:56 Pulse Ox 93 08/23/23 04:56 O2 Del Method Room Air 08/23/23 04:56 Constitutional no acute distress ENMT Mouth: no TMJ abnormality Thyromental Distance: > or= 3.5 Finger Breadths Mallampati Class: II Neck normal visual inspection and trachea midline; neck extension not limited Respiratory normal respiratory effort Auscultation: lungs clear to auscultation bilaterally Cardiovascular Rate/Rhythm: regular rate and regular rhythm Heart Sounds: no murmur Musculoskeletal Spine: normal cervical ROM Extremities: full ROM of extremities Neurologic moves all extremities Psychiatric Orientation: alert and oriented x 3 Testing Laboratory Results 08/22/23 20:09 Blood Type A Positive 08/22/23 18:09 Antibody Screen NEGATIVE 08/22/23 18:09 Electrocardiogram Date: 08/22/23 Findings: + NSR @
--- NOTE | 2023-08-23 07:14 | History & Physical Report ---
Date of Service August 23, 2023 Assessment & Plan (1) Infection of prosthetic left knee joint: Plan: patient will be taken to the operating room for surgical exploration synovectomy debridement polyethylene exchange. He will then need a PICC line and appropriate IV antibiotics depending on the culture. 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 He had done well and was seen in the office and was without complaints. He presented the day prior to the emergency room in [place] with confusion and falls. A workup was completed and the physicians noticed that his knee was swollen and warm. He was a febrile but had a swollen warm knee and as part of his workup the knee was aspirated. It returned turbid fluid with 40,000 white blood cells 98% neutrophils and a CRP of 180. He was then treated for presumptive acute postoperative infection started on antibiotics and we were shannan led he has been transferred to [facility] for definitive care Primary Care Provider: Gladys Peres PA-C see above Allergies Allergy/AdvReac Type Severity Reaction Status Date / Time No Known Allergies Verified 12/22/09 14:59 Home Medications Medication Instructions Recorded Confirmed Type aspirin 81 mg capsule,delayed 81 mg PO DAILY 08/22/23 08/22/23 History release diltiazem HCl 360 mg 360 mg PO DAILY 08/22/23 08/22/23 History capsule,extended release 24 hr hydrochlorothiazide 25 mg tablet 25 mg PO DAILY 08/22/23 08/22/23 History losartan 100 mg tablet 100 mg PO DAILY 08/22/23 08/22/23 History zktpcsqj-mkxmoldo-fckvc acid 400 1 tab PO DAILY 08/22/23 08/22/23 History mcg-vit K 20 mcg-lycop 300 mcg tablet naproxen 500 mg tablet 500 mg PO BID PRN Pain 08/22/23 08/22/23 History rosuvastatin 10 mg tablet 10 mg PO HS 08/22/23 08/22/23 History Past Med/Surg History Medical History Bladder cancer Prostate cancer CKD (chronic kidney disease), stage III HLD (hyperlipidemia) HTN (hypertension) Surgical History History of cystoscopy Hx of colonoscopy 08/20/23: Dr Cates History of appendectomy History of knee replacement Right knee. 2009. Dr Vanegas Left knee: 2009. Dr Vanegas Family History Other Cancer Social History (Updated 08/22/23 @ 21:23 by Lola Portillo PA-C) Smoking Status: Never smoker Hx Alcohol Use: No Hx Substance Use: No Preferred Language: Hebrew Communication Ability: Effective Supervisor [employer]uk[employer] Required: No Beliefs That Will Affect Care: None Current Living Situation: Spouse Feels Safe at Home: Yes Safety Concerns: Feels Safe At This Time Physical Exam Physical Exam: General: Patient appears to be his stated age HEENT: NCAT, EOMI, PERRLA Neck without bruits Heart regular rate and rhythm no murmurs Lungs breath sounds clear and present in all [place] Abdomen: Flat soft nontender bowel sounds positive Extremities the knee is swollen and warm there is a Band-Aid at the puncture si te there is pain with range of motion. Neurological and vascular intact Results & Data Results & Data Vital Signs (Past 12 Hours) Vital Signs Temp Pulse Resp BP Pulse Ox O2 Del Method 08/23/23 06:11 36.9 C 08/23/23 04:56 38.3 C H 102 H 18 122/70 93 Room Air 08/22/23 21:49 Room Air 08/22/23 21:20 36.6 C 18 132/70 97 Room Air Code Status & VTE Plan VTE Prophylaxis Plan VTE Prophylaxis will be ordered: Yes
[2023-08-23] MEDS ORDERED: PROPOFOL IV EMULSION 10 MG/ML 20 ML VIAL IV ONE ×2 (07:22→08:23)
[2023-08-23] MEDS ORDERED: DEXAMETHASONE SOD INJ 4 MG/ML VIAL ONE (07:22)
[2023-08-23] MEDS ORDERED: ONDANSETRON INJ 2 MG/ML 2 ML VIAL ONE (07:22)
[2023-08-23] MEDS ORDERED: fentaNYL citrate PF 100 MCG/2 ML VIAL ONE ×3 (07:22→09:27)
--- NOTE | 2023-08-23 07:27 | History & Physical Bridge Note ---
Date of Service August 23, 2023 History & Physical Bridge Note I have examined the patient, reviewed the History & Physical and in the interval since the performance of the History & Physical I have noted the following changes of clinical significance: no changes noted
[2023-08-23] MEDS ORDERED: ATROPINE SULFATE 0.1 MG/ML 10ML SYR IV PRN (07:31)
[2023-08-23] MEDS ORDERED: ONDANSETRON INJ 2 MG/ML 2 ML VIAL IV PRN (07:31)
[2023-08-23] MEDS ORDERED: ePHEDrine sulfate 50 MG/ML AMP IV PRN (07:31)
[2023-08-23] MEDS ORDERED: PHENYLEPHRINE HCL 10 MG/ML VIAL ONE (07:50)
--- NOTE | 2023-08-23 08:18 | XRay Report ---
XR wrist LT min 3V routine CLINICAL HISTORY: Left wrist pain following fall. COMPARISON: None FINDINGS: No acute fracture is identified. There is widening of the scapholunate interval which alexandra ures 1 cm. Extensive chondrocalcinosis is noted. There is severe joint space narrowing within the lef t first carpometacarpal and triscaphe joints. There is also moderate radiocarpal joint space narrowin g. Subchondral cyst within the distal left radius and on are benign. Severe joint space narrowing wit h osseous irregularity of the left fifth PIP joint is present. There is left wrist soft tissue swelli ng. IMPRESSION: 1. No acute fracture within the left wrist. Left wrist soft tissue swelling. 2. Significant widening of the scapholunate interval with severe degenerative changes of the left wri st and chondrocalcinosis. The findings suggest scapholunate advanced collapse. 3. Left fifth PIP joint space narrowing with osseous irregularity. This could reflect erosive osteoar thritis or an inflammatory/erosive arthritis. ACT 112: Negative or not required by law. Electronically signed by: Zach Arceo M.D. 08/23/2023 8:16 AM
[2023-08-23] MEDS ORDERED: KETOROLAC 30 MG/ML VIAL ONE (08:45)
--- NOTE | 2023-08-23 09:06 | Post Operative Brief Note ---
Immediate Post Op Note v1 Date of Surgery August 23, 2023 Pre & Post Diagnosis preoperative diagnosis: Acute infection left total knee replacement Postoperative diagnosis: Same I identified the patient and participated in the time-out.: Yes Procedure exploration irrigation and debridement left total knee with complete synovectomy and revision tibial polyethylene insert Operation Date: 08/23/23 07:30 <No data on this case meets the specified criteria> Surgeon Calderon Vanegas MD Lifestyle Consultant Chon Cabrales PA-C Estimated Blood Loss 25 Findings Consistent with Post-Op Diagnosis Drains Hemovac Drain
--- NOTE | 2023-08-23 09:17 | Operative Report ---
Post Operative Report Pre & Post Diagnosis preoperative diagnosis: Acute infection left total knee replacement Postoperative diagnosis: Same Operation Date: 08/23/23 07:30 <No data on this case meets the specified criteria> I identified the patient and participated in the time-out.: Yes Procedure exploration and synovectomy irrigation debridement and polyethylene revision left total knee Operation Date: 08/23/23 07:30 <No data on this case meets the specified criteria> Surgeon Calderon Vanegas MD Detailer Chon Cabrales PA-C Estimated Blood Loss 25 Findings Consistent with Post-Op Diagnosis gross purulence and copious amounts with evidence of erosion through the capsular repair Specimens synovium and explanted polyethylene insert Complications none Indications patient is a 78-year-old male with a his previous history of bladder cancer hypertension and heart disease who underwent an exploration and revision of a broken tibial polyethylene post approximately 5 weeks ago. His index procedure had been done in 2008. He initially did well but presented 24 hours prior with acute onset of an effusion and an acutely swollen painful knee. His knee was evaluated at [facility] aspirated and found to have gross purulence. He was then started on antibiotics and transferred for definitive care Description of Procedure following satisfactory general anesthesia the patient was supine on the operating room table. A tourniquet was placed. The lower extremity was prepared with ChloraPrep paint and draped sterilely. A surgical timeout was performed. The tourniquet was inflated after gravity exsanguination to 300 mmHg. Using the old knee incision a midline incision was made. Immediately on entering through the skin a large amount of purulent material under pressure was released. skin flaps were elevated to expose the capsule and it was obvious that there was a dehiscence of a lot of the repair although the capsule did look good. The Versajet system was used to systematically clean all of the contaminated skin on both the lateral and medial sides and over the patella. Attention was then turned to the anterior portion of the knee. Electrocautery was used to remove the bulk of the synovial tissue which was thickened and angry looking. The Versajet system was then used in a systematic fashion to clean and debride devitalized tissue starting in the superior gutter followed by the medial gutter and then the lateral gutter superiorly and inferiorly. After the Versajet had been used the tibial polyethylene was removed. The Versajet was then used to access the posterior gutter using a lamina deep sea diver which was also cleaned thoroughly. The knee was then irrigated with 3 L of pulsatile lavage. The knee was inspected and again the Versajet was used to clean up some other areas of devitalized tissue. The knee was then again eradicated again with another 3 L of pulsatile lavage. The knee was inspected and appeared to be clean. The surgical team then regowned and gloved as well as a new set of instruments and a new clean drape was placed on underneath the leg. The 6 x 10 tall posttibial insert was then opened and placed. The knee was irrigated copiously with experience irrigation which had been used first to wet the metal surfaces before the polyethylene was inserted. The knee was then irrigated with the remainder of the 500 cc experience irrigation after the poly was inserted. A Hemovac drain was placed. The capsulotomy was closed with interrupted mxazqm-xk-gmkgy sutures of #1 Vicryl plus. The subcutaneous layers were closed with 2-0 Vicryl plus. The skin was closed with surgical jaswinder. A negative pressure wound dressing was applied and the tourniquet was deflated at a total time of 70 minutes at 300 mmHg. A compressive bandage was placed and the patient was returned to his bed in stable condition. A total of 9 L of irrigation was used using 6 L of pulse lavage and 3 L of Versajet followed by 500 cc of experience. Note: Chon Cabrales was present and assisted throughout due to the complicated nature of this case. He help with preparation and set up an middle school assistant principal throughout. He assisted with hemostasis and exposure throughout the procedure. He also closed the capsule subcutaneous and skin layers and applied the postop dressing. I attest to the content of the Intraoperative Record and any orders documented therein. Any exceptions are noted below.
[2023-08-23] MEDS ORDERED: ACETAMINOPHEN 10MG/ML Custom 1,000 MG in EMPTY BAG 0 ML IV STA (09:25)
[2023-08-23] MEDS ORDERED: ACETAMINOPHEN 1000 MG/100 ML IV IV ONE ×3 (09:25→10:19)
[2023-08-23] MEDS: fentaNYL citrate PF 100 MCG/2 ML VIAL IV PRN ×4 (09:30→09:54)
[2023-08-23] MEDS ORDERED: HYDROmorphone INJ 1 MG/ML SYRINGE ONE (10:12)
[2023-08-23] MEDS ORDERED: ACETAMINOPHEN 1,000 MG/100 ML VIAL IV STA (10:20)
[2023-08-23] MEDS: HYDROmorphone INJ 1 MG/ML SYRINGE IV PRN ×3 (10:24→10:35)
--- NOTE | 2023-08-23 10:56 | Anesthesiology Progress Note ---
Date of Service August 23, 2023 Anesthesia Post Procedure Vital Signs Vital Signs: Temp Pulse Pulse Resp BP Pulse Ox O2 Del Method 08/23/23 10:40 36.2 C L 93 H 15 145/81 H 96 Nasal Cannula 08/23/23 10:30 94 H 14 126/86 95 Nasal Cannula 08/23/23 10:20 97 H 19 143/87 H 97 Nasal Cannula 08/23/23 10:10 98 H 20 148/85 H 98 Nasal Cannula 08/23/23 10:00 104 H 24 142/99 H 98 Nasal Cannula 08/23/23 09:50 103 H 16 144/79 H 99 Oxymask 08/23/23 09:40 104 H 20 155/87 H 99 Oxymask 08/23/23 09:30 105 H 21 149/105 H 98 Oxymask 08/23/23 09:20 36.1 C L 102 H 24 154/127 H 94 Oxymask 08/23/23 06:11 36.9 C 08/23/23 04:56 38.3 C H 102 H 18 122/70 93 Room Air 08/22/23 21:49 Room Air 08/22/23 21:20 36.6 C 18 132/70 97 Room Air O2 Flow Rate 08/23/23 10:40 2 08/23/23 10:30 2 08/23/23 10:20 2 08/23/23 10:10 2 08/23/23 10:00 2 08/23/23 09:50 4 08/23/23 09:40 4 08/23/23 09:30 6 08/23/23 09:20 6 08/23/23 06:11 08/23/23 04:56 08/22/23 21:49 08/22/23 21:20 Pain Intensity Left Leg: Pain Intensity: 4 Transfer of Care Handoff Completed per policy Notes Mental Status: alert / awake / arousable Patient Amnestic to Procedure: Yes Nausea / Vomiting: adequately controlled Pain: adequately controlled Airway Patency, RR, SpO2: stable & adequate BP & HR: stable & adequate Hydration State: stable & adequate Anesthetic Complications: no major complications apparent and Pt Satisfied with anesthetic care
[2023-08-23] MEDS: oxyCODONE HCL IR 5 MG TAB (IMMEDIATE RELEASE) PO PRN (11:32)
[2023-08-23 12:16] LABS: BUN Creatinine Ratio 29.2 (10-20); Calcium 8.3 mg/dl (8.6-10.3); Creatinine Clr Calc Pharmacy 42.7 ml/min; Est GFR (African American) 53.2 ml/min; Est GFR (Non-African American) 45.9 ml/min; Potassium 4.2 mmol/L (3.5-5.1)
[2023-08-23 12:21] LABS: Basophils # (auto) 0.03 K/uL (0.00-0.20); Basophils % (auto) 0.3 %; Dohle Bodies 1+; Echinocytes 1+; Eosinophils % (auto) 1.1 %; Hematocrit (blood only) 34.3 % (42.0-52.0); Hemoglobin 11.3 g/dl (14.0-18.0); Immature Granulocytes # (auto) 0.08 K/uL (0.01-0.20); Immature Granulocytes % (auto) 0.9 %; Lymphocytes # (auto) 0.24 K/uL (1.20-3.40); Lymphocytes % (auto) 2.7 %; Mean Corpuscular Hemoglobin 29.6 pg (25.0-34.0); Mean Corpuscular Hgb Conc 32.9 g/dL (32.0-36.0); Mean Corpuscular Volume 89.8 fL (80.0-100.0); Mean Platelet Volume 10.7 fL (9.4-12.4); Monocytes # (auto) 0.31 K/uL (0.11-0.59); Monocytes % (auto) 3.5 %; Neutrophils # (auto) 8.02 K/uL (1.40-6.50); Neutrophils % (auto) 91.5 %; Platelet Count 122 K/uL (130-400); RDW Coefficient of Variation 13.1 % (11.5-14.5); RDW Standard Deviation 42.5 fL (36.4-46.3); Red Blood Count 3.82 M/uL (4.70-6.10); White Blood Count 8.78 K/ul (4.8-10.8)
--- NOTE | 2023-08-23 12:36 | Pharmacy Report ---
Pharmacy PK ABX Note - Date of Service August 23, 2023 - Assessment and Plan Assessment 78 year old M receiving VANCOMYCIN/ZOSYN for treatment of infection of prosthetic left knee joint. I&D this morning. Pertinent microbiologic data includes: Blood cultures, leg culture pending. Patient initially at outside facility, received a dose of vancomycin prior to arrival, will await culture results. Plan Vancomycin * Loading dose: 2000 mg IV x 1 (at outside facility) * Maintenance dose: 1000 mg IV every 24 hours * Regimen is predicted to achieve target AUC/LATA of 400-600 mg/L.hr * Random level ordered for 1225 AM Pharmacy will continue to follow and will adjust dose/frequency as necessary. Thank you. Pharmacy has transitioned to AUC monitoring for vancomycin. AUC/LATA is the preferred PK/PD target and is associated with decreased risk of nephrotoxicity compared to traditional trough targets.
[2023-08-23] MEDS: DOCUSATE SODIUM 100 MG CAP PO SCH ×2 (14:42→20:24)
[2023-08-23] MEDS: dilTIAZem HCL 180 MG CAPCR PO SCH (14:43)
--- NOTE | 2023-08-23 16:52 | Hospitalist Progress Note ---
Date of Service August 23, 2023 Assessment & Plan (1) Infection of prosthetic left knee joint: (2) Bacteremia: Plan: Patient is 78 y/o M with PMH HTN, HLD, CKD III, bladder cancer, prostate cancer s/p radiation seen in medical consultation for medical management. Was transfer from [facility] for left knee septic joint, bacteremia on preliminary blood cultures. [facility] ER 2 sets of blood cultures with preliminary readings of Gram-positive cocci in pairs and chains in both bottles. Left knee synovial fluid: Preliminary culture gram-positive cocci in chains. Continue on Zosyn and vancomycin for the time being. Awaiting final culture results. Infectious disease consulted. Patient will likely need 6 weeks of IV antibiotics. Echocardiogram ordered to rule out vegetations. Repeat blood culture is pending. Awaiting infectious disease input which will likely be on Friday. He will likely need PICC line and antibiotic arranged. (3) Left wrist pain: Plan: Patient complained of left wrist discomfort and some edema X-ray of left wrist shows soft tissue swelling. Also fifth PIP joint space narrowing reflective of osteoarthritis or inflammatory/erosive arthritis. Treatment per primary. (4) HTN (hypertension): Plan: Stable Continue diltiazem, Continue to hold HCTZ and losartan (5) HLD (hyperlipidemia): Plan: Continue rosuvastatin (6) CKD (chronic kidney disease), stage III: Plan: Cr: 1.[address] [facility] ER today. Baseline creatinine ~1.1 Monitor renal functions, avoid nephrotoxic agents when able (7) Prostate cancer: (8) Bladder cancer: Plan: Follows with urology DVT Prophylaxis SCDs per ortho Full Code as per discussion with pt Follows with Gladys Peres PA-C for routine care Time spent evaluating patient, direct bedside care, chart review, placing orders, interpretation of diagnostic studies, discussion with consultants, patient, and family members, as well as other required patient management activities is 50-minutes Please note the above document was generated using voice recognition software. It may contain grammatical, syntax or spelling errors. Any formal questions or concerns about the content, text or information contained within the body of this dictation should be directly addressed to the provider for clarification Admission and Anticipated Discharge Date Admission Date: August 22, 2023 Subjective Patient seen and examined at bedside. Patient underwent left knee incision and drainage with poly exchange. Review of Systems Review of Systems: All systems reviewed & are unremarkable except as noted in Subjective Physical Exam Physical Exam: Constitutional: WD/WN, vitals as above, NAD, sitting up in bed, pleasant, conversing easily Respiratory: Bilateral vesicular breath sound. Cardiovascular: RRR, no murmur, no edema Vessels: no JVD or carotid bruit Chest: normal inspection of chest Abdomen: normal bowel sounds, soft, nontender, no hepatosplenomegaly Musculoskeletal: Left knee on bandages. Skin: no rashes, warm and dry normal turgor Neurologic: PERRL, EOMI, accommodation nl, no face palsy, no dysarthria CN's II- XI intact bilaterally and moves all extremities Psychiatric: A+Ox3, euthymic affect Results & Data Results & Data Vital Signs (Past 12 Hours) Vital Signs Temp Pulse Pulse Resp BP Pulse Ox O2 Del Method 08/23/23 14:18 36.3 C L 90 16 146/81 H 98 Nasal Cannula 08/23/23 13:20 36.8 C 88 16 136/74 98 Nasal Cannula 08/23/23 12:19 36.5 C 90 16 162/83 H 98 Room Air 08/23/23 12:00 Nasal Cannula 08/23/23 11:44 36.4 C L 93 H 20 160/98 H 97 Nasal Cannula 08/23/23 11:15 36.7 C 92 H 20 155/97 H 90 Nasal Cannula 08/23/23 10:55 94 H 18 143/86 H 96 Nasal Cannula 08/23/23 10:40 36.2 C L 93 H 15 145/81 H 96 Nasal Cannula 08/23/23 10:30 94 H 14 126/86 95 Nasal Cannula 08/23/23 10:20 97 H 19 143/87 H 97 Nasal Cannula 08/23/23 10:10 98 H 20 148/85 H 98 Nasal Cannula 08/23/23 10:00 104 H 24 142/99 H 98 Nasal Cannula 08/23/23 09:50 103 H 16 144/79 H 99 Oxymask 08/23/23 09:40 104 H 20 155/87 H 99 Oxymask 08/23/23 09:30 105 H 21 149/105 H 98 Oxymask 08/23/23 09:20 36.1 C L 102 H 24 154/127 H 94 Oxymask 08/23/23 06:11 36.9 C 12/23/23 04:56 38.3 C H 102 H 18 122/70 93 Room Air O2 Flow Rate 08/23/23 14:18 08/23/23 13:20 08/23/23 12:19 08/23/23 12:00 2 08/23/23 11:44 08/23/23 11:15 2 08/23/23 10:55 2 08/23/23 10:40 2 08/23/23 10:30 2 08/23/23 10:20 2 08/23/23 10:10 2 08/23/23 10:00 2 08/23/23 09:50 4 08/23/23 09:40 4 08/23/23 09:30 6 08/23/23 09:20 6 08/23/23 06:11 08/23/23 04:56
[2023-08-23] MEDS: ROSUVASTATIN CALCIUM 10 MG TAB PO SCH (20:23)
[2023-08-23] MEDS ORDERED: VANCOMYCIN HCL 1,000 MG in SODIUM CHLORIDE 0.9% 250 ML IV SCH (22:00)
[2023-08-24] MEDS: PIPERACILLIN/TAZOBACTAM 4.5 GM in DEXTROSE 5% MINI-B 100 ML IV SCH ×2 (05:09→13:57)
[2023-08-24 06:44] LABS: Basophils # (auto) 0.02 K/uL (0.00-0.20); Basophils % (auto) 0.3 %; Hematocrit (blood only) 26.5 % (42.0-52.0); Hemoglobin 8.9 g/dl (14.0-18.0); Immature Granulocytes # (auto) 0.03 K/uL (0.01-0.20); Immature Granulocytes % (auto) 0.4 %; Lymphocytes % (auto) 5.4 %; Mean Corpuscular Hemoglobin 29.3 pg (25.0-34.0); Mean Corpuscular Hgb Conc 33.6 g/dL (32.0-36.0); Mean Corpuscular Volume 87.2 fL (80.0-100.0); Monocytes # (auto) 0.53 K/uL (0.11-0.59); Monocytes % (auto) 7.1 %; Neutrophils # (auto) 6.44 K/uL (1.40-6.50); Neutrophils % (auto) 86.8 %; Platelet Count 118 K/uL (130-400); RDW Standard Deviation 41.2 fL (36.4-46.3); Red Blood Count 3.04 M/uL (4.70-6.10); White Blood Count 7.42 K/ul (4.8-10.8)
[2023-08-24 07:05] LABS: BUN Creatinine Ratio 33.6 (10-20); Calcium 8.1 mg/dl (8.6-10.3); Est GFR (African American) 61.3 ml/min; Est GFR (Non-African American) 52.9 ml/min; Potassium 3.9 mmol/L (3.5-5.1)
[2023-08-24] MEDS: hydroCHLOROthiazide 25 MG TAB PO SCH (07:51)
[2023-08-24] MEDS: dilTIAZem HCL 180 MG CAPCR PO SCH (07:52)
[2023-08-24] MEDS: ASPIRIN 81 MG ECTAB PO SCH (07:52)
[2023-08-24] MEDS: LOSARTAN POTASSIUM 50 MG TAB PO SCH (07:52)
[2023-08-24] MEDS: DOCUSATE SODIUM 100 MG CAP PO SCH ×2 (07:57→20:48)
--- NOTE | 2023-08-24 09:31 | Electrocardiogram Report ---
Test Reason : Blood Pressure : / mmHG Vent. Rate : 096 BPM Atrial Rate : 096 BPM P-R Int : 142 ms QRS Dur : 092 ms QT Int : 334 ms P-R-T Axes : 033 -04 030 degrees QTc Int : 421 ms Normal sinus rhythm Possible Left atrial enlargement Inferior infarct , age undetermined Abnormal ECG When compared with ECG of 27-OCT-2009 14:17, Vent. rate has increased BY 38 BPM Inferior infarct is now Present Confirmed by Andrey Robertson ([id number]) on 08/24/2023 9:31:27 AM Referred By: Calderon Vanegas Confirmed By:Andrey Robertson
[2023-08-24] MEDS: SODIUM CHLORIDE 0.9% 1,000 ML IV SCH (11:56)
--- NOTE | 2023-08-24 11:57 | Orthopedic Progress Note ---
Date of Service August 24, 2023 Assessment & Plan (1) Infection of prosthetic left knee joint: Plan: preliminary cultures are showing group B strep with no sensitivities yet. Consent was obtained today for PICC line. Awaiting final sensitivities to direct appropriate IV antibiotics and may also use rifampin if infectious disease and medicine approved. Dressings and drains to be removed 1225 Admission and Anticipated Discharge Date Admission Date: August 22, 2023 Subjective Postoperative day #1 I&D left knee Patient reports no complaints today. His pain is controlled. He is sitting out of bed with his knee immobilizer and Kole wrapped intact. Physical Exam Physical Exam: Again knee immobilizer and Kole wrap is intact. He is neurologically and vascularly intact and reports no pain. Patient is alert and oriented x 3 Results & Data Vital Signs (Past 12 Hours) Vital Signs Temp Pulse Resp BP Pulse Ox O2 Del Method 08/24/23 10:58 37.1 C 79 16 136/73 93 Room Air 08/24/23 07:37 36.9 C 82 16 137/72 95 Room Air 08/24/23 04:00 36.7 C 77 18 145/66 H 94 Room Air
[2023-08-24] MEDS: oxyCODONE HCL IR 5 MG TAB (IMMEDIATE RELEASE) PO PRN (12:58)
--- NOTE | 2023-08-24 14:15 | Hospitalist Progress Note ---
Date of Service August 24, 2023 Assessment & Plan (1) Infection of prosthetic left knee joint: (2) Bacteremia: Plan: Patient is 78 y/o M with PMH HTN, HLD, CKD III, bladder cancer, prostate cancer s/p radiation seen in medical consultation for medical management. Was transfer from [facility] [place] for left knee septic joint, bacteremia on preliminary blood cultures. [facility] [place] ER 2 sets of blood cultures shows group G beta streptococcus Left knee synovial fluid: Group G beta strep Will switch him over to ceftriaxone given the blood culture and wound culture results. Will await total of 48 hours of negative blood cultures before placing PICC line. Possible PICC line placed tomorrow. Transthoracic echocardiogram does not show any vegetations. Will need 6 weeks of IV antibiotics from the first day of negative blood culture possibly along with rifampin 300 mg twice daily. Will await infectious disease input to further guide the duration and route of antibiotics. (3) Left wrist pain: Plan: Patient complained of left wrist discomfort and some edema X-ray of left wrist shows soft tissue swelling. Also fifth PIP joint space narrowing reflective of osteoarthritis or inflammatory/erosive arthritis. Treatment per primary. (4) HTN (hypertension): Plan: Stable Continue diltiazem, Will resume hydrochlorothiazide and losartan today. (5) HLD (hyperlipidemia): Plan: Continue rosuvastatin (6) CKD (chronic kidney disease), stage III: Plan: Creatinine at baseline. Monitor renal functions, avoid nephrotoxic agents when able (7) Prostate cancer: (8) Bladder cancer: Plan: Follows with urology DVT Prophylaxis SCDs per ortho Full Code as per discussion with pt Follows with Gladys Peres PA-C for routine care Discussed with patient's and daughter at bedside. Answered questions/queries. Time spent evaluating patient, direct bedside care, chart review, placing orders, interpretation of diagnostic studies, discussion with consultants, patient, and family members, as well as other required patient management activities is 50-minutes Please note the above document was generated using voice recognition software. It may contain grammatical, syntax or spelling errors. Any formal questions or concerns about the content, text or information contained within the body of this dictation should be directly addressed to the provider for clarification Admission and Anticipated Discharge Date Admission Date: August 22, 2023 Subjective Patient seen and examined at bedside. He is sitting up on the chair at the side of the bed eating lunch. He reports generalized weakness; no episode of fever or chills overnight. Review of Systems Review of Systems: All systems reviewed & are unremarkable except as noted in Subjective Physical Exam Physical Exam: Constitutional: WD/WN, vitals as above, NAD, sitting up in bed, pleasant, conversing easily Respiratory: Bilateral vesicular breath sound. Cardiovascular: RRR, no murmur, no edema Vessels: no JVD or carotid bruit Chest: normal inspection of chest Abdomen: normal bowel sounds, soft, nontender, no hepatosplenomegaly Musculoskeletal: Left knee on bandages. Drain in place. Swelling on left hand with painful ROM of thumb. Skin: no rashes, warm and dry normal turgor Neurologic: PERRL, EOMI, accommodation nl, no face palsy, no dysarthria CN's II- XI intact bilaterally and moves all extremities Psychiatric: A+Ox3, euthymic affect Results & Data Results & Data Vital Signs (Past 12 Hours) Vital Signs Temp Pulse Resp BP Pulse Ox O2 Del Method 08/24/23 10:58 37.1 C 79 16 136/73 93 Room Air 08/24/23 07:37 36.9 C 82 16 137/72 95 Room Air 08/24/23 07:20 Room Air 08/24/23 04:00 36.7 C 77 18 145/66 H 94 Room Air Laboratory Results Laboratory Results WBC 7.42 K/ul (4.8-10.8) 08/24/23 05:27 RBC 3.04 M/uL (4.70-6.10) L 08/24/23 05:27 Hgb 8.9 g/dl (14.0-18.0) L 08/24/23 05:27 Hct 26.5 % (42.0-52.0) L 08/24/23 05:27 MCV 87.2 fL (80.0-100.0) 08/24/23 05:27 MCH 29.3 pg (25.0-34.0) 08/24/23 05:27 MCHC 33.6 g/dL (32.0-36.0) 08/24/23 05:27 RDW Std Deviation 41.2 fL (36.4-46.3) 08/24/23 05:27 RDW Coeff of Christal 13.0 % (11.5-14.5) 08/24/23 05:27 Plt Count 118 K/uL (130-400) L 08/24/23 05:27 MPV 11.0 fL (9.4-12.4) 08/24/23 05:27 Immature Gran % (Auto) 0.4 % 08/24/23 05:27 Neut % (Auto) 86.8 % 08/24/23 05:27 Lymph % (Auto) 5.4 % 08/24/23 05:27 [place] % (Auto) 7.1 % 08/24/23 05:27 Eos % (Auto) 0.0 % 08/24/23 05:27 Baso % (Auto) 0.3 % 08/24/23 05:27 Neut # (Auto) 6.44 K/uL (1.40-6.50) 08/24/23 05:27 Lymph # (Auto) 0.40 K/uL (1.20-3.40) L 08/24/23 05:27 [place] # (Auto) 0.53 K/uL (0.11-0.59) 08/24/23 05:27 Eos # (Auto) 0.00 K/uL (0.00-0.50) 08/24/23 05:27 Baso # (Auto) 0.02 K/uL (0.00-0.20) 08/24/23 05:27 Immature Gran # (Auto) 0.03 K/uL (0.01-0.20) 08/24/23 05:27 Dohle Bodies 1+ 08/23/23 11:27 Echinocytes 1+ 08/23/23 11:27 Sodium 135 mmol/L (136-145) L 08/24/23 05:27 Potassium 3.9 mmol/L (3.5-5.1) 08/24/23 05:27 Chloride 104 mmol/L (98-107) 08/24/23 05:27 Carbon Dioxide 26 mmol/L (21-32) 08/24/23 05:27 Anion Gap 5 (3-11) 08/24/23 05:27 BUN 43 mg/dl (6-23) H 08/24/23 05:27 Creatinine 1.28 mg/dl (0.6-1.4) 08/24/23 05:27 Est Cr Clr Drug Dosing 48.0 ml/min 08/24/23 05:27 Est GFR ( Amer) 61.3 ml/min 08/24/23 05:27 Est GFR (Non-Af Amer) 52.9 ml/min 08/24/23 05:27 BUN/Creatinine Ratio 33.6 (10-20) H 08/24/23 05:27 Glucose 108 mg/dl (70-99(Fasting)) H 08/24/23 05:27 Calcium 8.1 mg/dl (8.6-10.3) L 08/24/23 05:27 Random Vancomycin 13.8 mcg/ml (10-20) 08/22/23 20:09 Blood Type A Positive 08/22/23 18:09 Antibody Screen NEGATIVE 08/22/23 18:09 Impressions Wrist X-Ray 08/22/23 18:48 XR wrist LT min 3V routine CLINICAL HISTORY: Left wrist pain following fall. COMPARISON: None FINDINGS: No acute fracture is identified. There is widening of the scapholunate interval which measures 1 cm. Extensive chondrocalcinosis is noted. There is severe joint space narrowing within the left first carpometacarpal and triscaphe joints. There is also moderate radiocarpal joint space narrowing. Subchondral cyst within the distal left radius and on are benign. Severe joint space narrowing with osseous irregularity of the left fifth PIP joint is present. There is left wrist soft tissue swelling. IMPRESSION: 1. No acute fracture within the left wrist. Left wrist soft tissue swelling. 2. Significant widening of the scapholunate interval with severe degenerative changes of the left wrist and chondrocalcinosis. The findings suggest scapholunate advanced collapse. 3. Left fifth PIP joint space narrowing with osseous irregularity. This could reflect erosive osteoarthritis or an inflammatory/erosive arthritis. ACT 112: Negative or not required by law. Electronically signed by: Zach Arceo M.D. 08/23/2023 8:16 AM
[2023-08-24] MEDS: cefTRIAXone SODIUM 2,000 MG in DEXTROSE 5 % MINI-B 50 ML IV SCH (14:41)
[2023-08-24] MEDS: ROSUVASTATIN CALCIUM 10 MG TAB PO SCH (20:46)
[2023-08-25 06:52] LABS: Basophils # (auto) 0.01 K/uL (0.00-0.20); Basophils % (auto) 0.1 %; Eosinophils # (auto) 0.01 K/uL (0.00-0.50); Eosinophils % (auto) 0.1 %; Hemoglobin 8.6 g/dl (14.0-18.0); Immature Granulocytes # (auto) 0.03 K/uL (0.01-0.20); Immature Granulocytes % (auto) 0.4 %; Lymphocytes # (auto) 0.61 K/uL (1.20-3.40); Lymphocytes % (auto) 8.2 %; Mean Corpuscular Hemoglobin 29.3 pg (25.0-34.0); Mean Corpuscular Hgb Conc 34.4 g/dL (32.0-36.0); Mean Platelet Volume 10.6 fL (9.4-12.4); Monocytes # (auto) 0.68 K/uL (0.11-0.59); Monocytes % (auto) 9.2 %; Neutrophils # (auto) 6.06 K/uL (1.40-6.50); Platelet Count 128 K/uL (130-400); RDW Coefficient of Variation 12.7 % (11.5-14.5); RDW Standard Deviation 39.5 fL (36.4-46.3); Red Blood Count 2.94 M/uL (4.70-6.10)
[2023-08-25 07:06] LABS: BUN Creatinine Ratio 23.8 (10-20); Calcium 8.3 mg/dl (8.6-10.3); Creatinine Clr Calc Pharmacy 58.5 ml/min; Est GFR (African American) 77.9 ml/min; Est GFR (Non-African American) 67.2 ml/min; Potassium 3.3 mmol/L (3.5-5.1)
[2023-08-25] MEDS ORDERED: POTASSIUM CHLORIDE CRTAB 20 MEQ TABCR PO STA ×2 (07:57→12:12)
--- NOTE | 2023-08-25 07:57 | Orthopedic Progress Note ---
Date of Service August 25, 2023 Assessment & Plan (1) Infection of prosthetic left knee joint: Plan: 78 yo male stable POD #2 s/p left TKA I&D, poly change, Group G Beta strep on culture, acute blood loss anemia-vital signs stable 1. Med management- cont IV Ceftriaxone, await ID input, PICC line ordered(blood cultures 08/23/23 neg to date), acute blood loss anemia 2. DVT prophylaxis- ASA(need for BID or stronger agent with knee immobilized?), SCDs 3. PT/OT 4. 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 IV abx upon d/c, case management to assist Admission and Anticipated Discharge Date Admission Date: August 22, 2023 Subjective Pt resting in bed, pain controlled, denies complaints Physical Exam Physical Exam: Knee immobilizer in place, hemovac and KIRILL intact, toes mobile, NVI Results & Data Vital Signs (Past 12 Hours) Vital Signs Temp Pulse Resp BP Pulse Ox O2 Del Method 08/24/23 20:46 Room Air 08/24/23 20:07 37.2 C 88 14 144/69 H 95 Room Air Laboratory Results 08/25/23 Range/Units 06:17 WBC 7.40 (4.8-10.8) K/ul RBC 2.94 L (4.70-6.10) M/uL Hgb 8.6 L (14.0-18.0) g/dl Hct 25.0 L (42.0-52.0) % MCV 85.0 (80.0-100.0) fL MCH 29.3 (25.0-34.0) pg MCHC 34.4 (32.0-36.0) g/dL RDW Std Deviation 39.5 (36.4-46.3) fL RDW Coeff of Christal 12.7 (11.5-14.5) % Plt Count 128 L (130-400) K/uL MPV 10.6 (9.4-12.4) fL Immature Gran % (Auto) 0.4 % Neut % (Auto) 82.0 % Lymph % (Auto) 8.2 % [place] % (Auto) 9.2 % Eos % (Auto) 0.1 % Baso % (Auto) 0.1 % Neut # (Auto) 6.06 (1.40-6.50) K/uL Lymph # (Auto) 0.61 L (1.20-3.40) K/uL [place] # (Auto) 0.68 H (0.11-0.59) K/uL Eos # (Auto) 0.01 (0.00-0.50) K/uL Baso # (Auto) 0.01 (0.00-0.20) K/uL Immature Gran # (Auto) 0.03 (0.01-0.20) K/uL Sodium 134 L (136-145) mmol/L Potassium 3.3 L (3.5-5.1) mmol/L Chloride 101 (98-107) mmol/L Carbon Dioxide 28 (21-32) mmol/L Anion Gap 5 (3-11) BUN 25 H (6-23) mg/dl Creatinine 1.05 (0.6-1.4) mg/dl Est Cr Clr Drug Dosing 58.5 ml/min Est GFR ( Amer) 77.9 ml/min Est GFR (Non-Af Amer) 67.2 ml/min BUN/Creatinine Ratio 23.8 H (10-20) Glucose 106 H (70-99(Fasting)) mg/dl Calcium 8.3 L (8.6-10.3) mg/dl Microbiology 08/23/23 11:27 Aerobic Blood Culture - Preliminary Blood No growth in Aerobic bottle after 24 hours. Anaerobic Blood Culture - Preliminary No growth in Anaerobic bottle after 24 hours. 08/23/23 11:28 Aerobic Blood Culture - Preliminary Blood No growth in Aerobic bottle after 24 hours. Anaerobic Blood Culture - Preliminary No growth in Anaerobic bottle after 24 hours. 08/23/23 08:06 Gram Stain - Final Knee,Left Aerobic and Anaerobic Culture - Preliminary Group G Beta Strep
[2023-08-25] MEDS: dilTIAZem HCL 180 MG CAPCR PO SCH (08:30)
[2023-08-25] MEDS: hydroCHLOROthiazide 25 MG TAB PO SCH (08:30)
[2023-08-25] MEDS: ASPIRIN 81 MG ECTAB PO SCH (08:30)
[2023-08-25] MEDS: LOSARTAN POTASSIUM 50 MG TAB PO SCH (08:30)
[2023-08-25] MEDS: DOCUSATE SODIUM 100 MG CAP PO SCH ×2 (08:31→21:10)
--- NOTE | 2023-08-25 12:15 | Hospitalist Progress Note ---
Date of Service August 25, 2023 Assessment & Plan (1) Infection of prosthetic left knee joint: (2) Bacteremia: Plan: Patient is 78 y/o M with PMH HTN, HLD, CKD III, bladder cancer, prostate cancer s/p radiation seen in medical consultation for medical management. Was transfer from [facility] for left knee septic joint, bacteremia on preliminary blood cultures. [facility] ER 2 sets of blood cultures shows group G beta streptococcus Left knee synovial fluid: Group G beta strep On ceftriaxone given the blood culture and wound culture results. Will await total of 48 hours of negative blood cultures before placing PICC line. Transthoracic echocardiogram does not show any vegetations. Will need 6 weeks of IV antibiotics from the first day of negative blood culture possibly along with rifampin 300 mg twice daily. Will await infectious disease input to further guide the duration and route of antibiotics. (3) Left wrist pain: Plan: Patient complained of left wrist discomfort and some edema X-ray of left wrist shows soft tissue swelling. Also fifth PIP joint space narrowing reflective of osteoarthritis or inflammatory/erosive arthritis. Treatment per primary. (4) HTN (hypertension): Plan: Stable Continue diltiazem, On hydrochlorothiazide and losartan . (5) HLD (hyperlipidemia): Plan: Continue rosuvastatin (6) CKD (chronic kidney disease), stage III: Plan: Creatinine at baseline. Monitor renal functions, avoid nephrotoxic agents when able (7) Prostate cancer: (8) Bladder cancer: Plan: Follows with urology DVT Prophylaxis SCDs per ortho Full Code as per discussion with pt Follows with Gladys Peres PA-C for routine care Please note the above document was generated using voice recognition software. It may contain grammatical, syntax or spelling errors. Any formal questions or concerns about the content, text or information contained within the body of this dictation should be directly addressed to the provider for clarification Admission and Anticipated Discharge Date Admission Date: August 22, 2023 Subjective Patient seen and examined at bedside. He is lying in the bed comfortably; not in distress. Denies fever or chills. Continues to report generalized fatigue. Review of Systems Review of Systems: All systems reviewed & are unremarkable except as noted in Subjective Physical Exam Physical Exam: Constitutional: WD/WN, vitals as above, NAD, sitting up in bed, pleasant, conversing easily Respiratory: Bilateral vesicular breath sound. Cardiovascular: RRR, no murmur, no edema Vessels: no JVD or carotid bruit Chest: normal inspection of chest Abdomen: normal bowel sounds, soft, nontender, no hepatosplenomegaly Musculoskeletal: Left knee on bandages. Drain in place. Swelling on left hand with painful ROM of thumb. Skin: no rashes, warm and dry normal turgor Neurologic: PERRL, EOMI, accommodation nl, no face palsy, no dysarthria CN's II- XI intact bilaterally and moves all extremities Psychiatric: A+Ox3, euthymic affect Results & Data Results & Data Vital Signs (Past 12 Hours) Vital Signs Temp Pulse Resp BP Pulse Ox O2 Del Method 08/25/23 08:27 37.5 C 87 14 149/67 H 93 Room Air
[2023-08-25] MEDS: cefTRIAXone SODIUM 2,000 MG in DEXTROSE 5 % MINI-B 50 ML IV SCH (14:05)
[2023-08-25] MEDS: oxyCODONE HCL IR 5 MG TAB (IMMEDIATE RELEASE) PO PRN (14:23)
[2023-08-25] MEDS ORDERED: PIPER/TAZO 4.5g in D5W MINI-B 100 ML IV ONE (15:15)
[2023-08-25] MEDS: ACETAMINOPHEN 325 MG TAB PO PRN (15:23)
[2023-08-25] MEDS: PIPERACILLIN/TAZOBACTAM 4.5 GM in DEXTROSE 5% MINI-B 100 ML IV SCH (21:10)
[2023-08-25] MEDS: ROSUVASTATIN CALCIUM 10 MG TAB PO SCH (21:10)
[2023-08-26] MEDS: PIPERACILLIN/TAZOBACTAM 4.5 GM in DEXTROSE 5% MINI-B 100 ML IV SCH ×2 (05:12→12:41)
[2023-08-26] MEDS: oxyCODONE HCL IR 5 MG TAB (IMMEDIATE RELEASE) PO PRN ×3 (05:18→21:57)
[2023-08-26 06:18] LABS: Basophils # (auto) 0.03 K/uL (0.00-0.20); Basophils % (auto) 0.4 %; Eosinophils # (auto) 0.02 K/uL (0.00-0.50); Eosinophils % (auto) 0.2 %; Hematocrit (blood only) 26.6 % (42.0-52.0); Hemoglobin 8.8 g/dl (14.0-18.0); Immature Granulocytes % (auto) 1.2 %; Lymphocytes % (auto) 9.6 %; Mean Corpuscular Hemoglobin 28.9 pg (25.0-34.0); Mean Corpuscular Hgb Conc 33.1 g/dL (32.0-36.0); Mean Corpuscular Volume 87.2 fL (80.0-100.0); Mean Platelet Volume 10.1 fL (9.4-12.4); Monocytes # (auto) 1.05 K/uL (0.11-0.59); Monocytes % (auto) 12.6 %; Neutrophils # (auto) 6.35 K/uL (1.40-6.50); Platelet Count 152 K/uL (130-400); RDW Standard Deviation 41.1 fL (36.4-46.3); Red Blood Count 3.05 M/uL (4.70-6.10); White Blood Count 8.35 K/ul (4.8-10.8)
[2023-08-26 06:36] LABS: BUN Creatinine Ratio 22.6 (10-20); C Reactive Protein 16.15 mg/dl (0-0.5); Calcium 8.6 mg/dl (8.6-10.3); Est GFR (Non-African American) 66.4 ml/min; Potassium 3.4 mmol/L (3.5-5.1)
[2023-08-26] MEDS: ASPIRIN 81 MG ECTAB PO SCH (09:27)
[2023-08-26] MEDS: hydroCHLOROthiazide 25 MG TAB PO SCH (09:27)
[2023-08-26] MEDS: LOSARTAN POTASSIUM 50 MG TAB PO SCH (09:27)
[2023-08-26] MEDS: dilTIAZem HCL 180 MG CAPCR PO SCH (09:27)
[2023-08-26] MEDS: DOCUSATE SODIUM 100 MG CAP PO SCH ×2 (09:28→21:57)
--- NOTE | 2023-08-26 10:07 | Orthopedic Progress Note ---
Date of Service August 26, 2023 Assessment & Plan (1) Infection of prosthetic left knee joint: Plan: culture and sensitivity showed group B strep which is pansensitive. Patient is currently on ceftriaxone. Awaiting PICC line placement and ID consult. Suspect may be beneficial to add rifampin twice daily. Hopefully cultures will be returned today. And PICC line placed for plan for DC home tomorrow on IV antibiotics. Admission and Anticipated Discharge Date Admission Date: August 22, 2023 Subjective Chief complaint: Postoperative day #3 I&D right knee and polyethylene exchange Patient is seen at the bedside. He is relatively comfortable and offers no complaints awaiting PICC line placement due to blood cultures being positive+48 hours ago Physical Exam Physical Exam: ginna dressing is clean dry intact his thigh and calf are soft and nontender skin is intact and neurological and vascular function are intact there is moderate swelling Results & Data Vital Signs (Past 12 Hours) Vital Signs Temp Pulse Resp BP Pulse Ox O2 Del Method 08/26/23 07:57 36.7 C 74 16 151/73 H 94 Room Air
--- NOTE | 2023-08-26 11:49 | Infectious Disease Consult ---
Date of Service August 26, 2023 Telehealth Information I performed this visit using a real-time telehealth connection between my location and the patients location ([facility]). After connecting through interactive tele-video, patient was identified by name and date of and/or wristband check.Patient (or authorized healthcare sales representative printing paper) was informed that this was a telemedicine visit and it was being conducted confidentially over secure lines. My office door was closed and no one else was present in the room with me.Patient (or authorized healthcare sales representative printing paper) provided consent to proceed with the visit, expressed an understanding of privacy and security of the telemedicine visit, and gave permission to have a hospital sales representative printing paper in the room in order to assist with the visit and to conduct portions of the visit, as needed. I informed the patient (or authorized healthcare sales representative printing paper) that I reviewed their record and presented the opportunity for them to ask any questions regarding the visit today. The patient agreed to participate. Assessment & Plan (1) Streptococcal bacteremia: (2) Infection of prosthetic left knee joint: (3) Status post incision and drainage: (4) Streptococcus infection, group G: Plan - Please stop IV piptazo and start on IV penicillin G 24 million units daily (either thru pump continuously or divided every 4 hrs). - He will require 6 weeks of IV penicillin via PICC line with anticipated end date of Oct 04, 2023. - He will then require long life antibiotic suppression with PO amoxicillin 500 mg TID (please make sure to prescribe it prior to discharge to be started Oct 05, 2023). - We will set an appointment for him in our [place] clinic in 6 weeks. - Thank you for involving us in the care of Mr. Latham. We will sign off for now. History of Present Illness History of Present Illness Mr. Latham is a 78 yo man with medical history of prostate and bladder cancer, HTN, and is status post left total knee arthroplasty revision in July 2023 who was admitted to [facility] on 08/23 after being transferred from [facility] because of concerns for left prosthetic knee infection. According to the patient, he initially had a left total knee arthroplasty in 2009 and has been doing well until July 2023 when he had a fracture of the polyethylene which required revision arthroplasty with replacement of the polyethylene. He mentioned that he did not have any postoperative complications; however, few days prior to presentation, he started feeling extremely weak and experienced multiple falls and recently progressive left knee pain which prompted him to come to the emergency department at [facility] where they aspirated the left knee with analysis showing around 43,000 nucleated cells (98% neutrophils) with synovial fluid culture growing group G strep. Also, 3 out of 4 bottles of blood culture sent at [facility] grew group B strep. Orthopedic team at [facility] was contacted and he was then transferred there on 08/23 and underwent I&D with synovectomy as well as polyethylene revision of the left total knee. Intraoperative culture also grew group G strep. ID team was consulted for further recommendations and to help in the management of left knee prosthetic joint infection. Allergies Allergy/AdvReac Type Severity Reaction Status Date / Time No Known Allergies Verified 12/22/09 14:59 Home Medications Medication Instructions Recorded Confirmed Type aspirin 81 mg capsule,delayed 81 mg PO DAILY 08/22/23 08/22/23 History release diltiazem HCl 360 mg 360 mg PO DAILY 08/22/23 08/22/23 History capsule,extended release 24 hr hydrochlorothiazide 25 mg tablet 25 mg PO DAILY 08/22/23 08/22/23 History losartan 100 mg tablet 100 mg PO DAILY 08/22/23 08/22/23 History vvpwthqz-kjbocxrn-xolai acid 400 1 tab PO DAILY 08/22/23 08/22/23 History mcg-vit K 20 mcg-lycop 300 mcg tablet naproxen 500 mg tablet 500 mg PO BID PRN Pain 08/22/23 08/22/23 History rosuvastatin 10 mg tablet 10 mg PO HS 08/22/23 08/22/23 History Patient History Medical History Bladder cancer Prostate cancer CKD (chronic kidney disease), stage III HLD (hyperlipidemia) HTN (hypertension) Surgical History History of cystoscopy Hx of colonoscopy 08/20/23: Dr Cates History of appendectomy History of knee replacement Right knee. 2009. Dr Vanegas Left knee: 2009. Dr Vanegas Family History Other Cancer Social History (Updated 08/22/23 @ 21:23 by Lola Portillo PA-C) Smoking Status: Never smoker Hx Alcohol Use: No Hx Substance Use: No Preferred Language: Spanish Communication Ability: Effective Network Liaison Required: No Beliefs That Will Affect Care: None Current Living Situation: Spouse Feels Safe at Home: Yes Safety Concerns: Feels Safe At This Time Review of Systems Constitutional: fatigue, but no fever or chills HEENT: no sore throat, no nasal discharge Cardiovascular: no chest pain, or palpitations Respiratory: no shortness of breath, no cough Gastrointestinal: No nausea, vomiting, diarrhea or abdominal pain : No dysuria or hesitancy, no urinary discharge Musculoskeletal/Skin: Minimal Lt knee pain Neurologic: no dizziness or headache Physical Exam Couldn't be obtained as the consult was performed via telemed. Results & Data Vital Signs (Past 12 Hours) Vital Signs Temp Pulse Resp BP Pulse Ox O2 Del Method 08/26/23 07:57 36.7 C 74 16 151/73 H 94 Room Air Laboratory Results Microbiology: 08/22: 3 out of 4 bottles of blood cultures growing group G strep (penicillin LATA less than or equal 0.06) 08/22: Synovial fluid culture growing group G strep 08/23: 2 sets of blood culture negative to date 08/23: Left knee synovial fluid culture growing group G strep (penicillin LATA less than or equal 0.03) Diagnostic Findings No recent relevant imaging (2) Infection of prosthetic left knee joint Encounter type: initial encounter Qualified Code(s): T84.54XA - Infection and inflammatory reaction due to internal left knee prosthesis, initial encounter
--- NOTE | 2023-08-26 13:57 | Hospitalist Progress Note ---
Date of Service August 26, 2023 Assessment & Plan (1) Infection of prosthetic left knee joint: (2) Bacteremia: Plan: Patient is 78 y/o M with PMH HTN, HLD, CKD III, bladder cancer, prostate cancer s/p radiation seen in medical consultation for medical management. Was transfer from [facility] for left knee septic joint, bacteremia on preliminary blood cultures. [facility] ER 2 sets of blood cultures shows group G beta streptococcus Left knee synovial fluid: Group G beta strep Transthoracic echocardiogram does not show any vegetations Repeat blood cultureno growth till date Antibiotics changed to IV penicillin G 24 units(currently on 4 mu units every 4 hours). Patient to be discharged with continuous infusion. Discussed with case management. He will then require long life antibiotic suppression with PO amoxicillin 500 mg TID; to be started on October 05, 2023. Follow-up with ID as outpatient. (3) Left wrist pain: Plan: Patient complained of left wrist discomfort and some edema X-ray of left wrist shows soft tissue swelling. Also fifth PIP joint space narrowing reflective of osteoarthritis or inflammatory/erosive arthritis. Treatment per primary. (4) HTN (hypertension): Plan: Stable Continue diltiazem, On hydrochlorothiazide and losartan . (5) HLD (hyperlipidemia): Plan: Continue rosuvastatin (6) CKD (chronic kidney disease), stage III: Plan: Creatinine at baseline. Monitor renal functions, avoid nephrotoxic agents when able (7) Prostate cancer: (8) Bladder cancer: Plan: Follows with urology DVT Prophylaxis Aspirin Full Code as per discussion with pt Follows with Gladys Peres PA-C for routine care Please note the above document was generated using voice recognition software. It may contain grammatical, syntax or spelling errors. Any formal questions or concerns about the content, text or information contained within the body of this dictation should be directly addressed to the provider for clarification Admission and Anticipated Discharge Date Admission Date: August 22, 2023 Subjective Patient seen and examined at bedside. He is comfortable lying in the bed; not in distress. Reports that his appetite has improved. Review of Systems Review of Systems: All systems reviewed & are unremarkable except as noted in Subjective Physical Exam Physical Exam: Constitutional: WD/WN, vitals as above, NAD, sitting up in bed, pleasant, conversing easily Respiratory: Bilateral vesicular breath sound. Cardiovascular: RRR, no murmur, no edema Vessels: no JVD or carotid bruit Chest: normal inspection of chest Abdomen: normal bowel sounds, soft, nontender, no hepatosplenomegaly Musculoskeletal: Left knee on bandages. Drain in place. Swelling on left hand with painful ROM of thumb. Skin: no rashes, warm and dry normal turgor Neurologic: PERRL, EOMI, accommodation nl, no face palsy, no dysarthria CN's II- XI intact bilaterally and moves all extremities Psychiatric: A+Ox3, euthymic affect Results & Data Results & Data Vital Signs (Past 12 Hours) Vital Signs Temp Pulse Resp BP Pulse Ox O2 Del Method 08/26/23 07:57 36.7 C 74 16 151/73 H 94 Room Air (1) Infection of prosthetic left knee joint Encounter type: initial encounter Qualified Code(s): T84.54XA - Infection and inflammatory reaction due to internal left knee prosthesis, initial encounter
--- NOTE | 2023-08-26 14:22 | XRay Report ---
XR chest 1V portable CLINICAL HISTORY: Right PICC Tip COMPARISON STUDY: Chest radiograph October 27, 2009 FINDINGS: Tip of the right PICC projects over the cavoatrial junction. There is mild cardiomegaly wit hout evidence for pulmonary edema. No pneumothorax. Trace left pleural effusion is noted. Linear left basilar densities favor atelectasis or scarring. IMPRESSION: 1. Tip of right PICC projects over the cavoatrial junction. 2. Trace left pleural effusion. Subsegmental left basilar atelectasis. ACT 112: Negative or not required by law. Electronically signed by: Zach Arceo M.D. 08/26/2023 2:20 PM
[2023-08-26] MEDS: [UNRECOGNIZED DRUG - OTHER] IV SCH (20:55)
[2023-08-26] MEDS: DEXTROSE IV SCH (20:55)
[2023-08-26] MEDS: ROSUVASTATIN CALCIUM 10 MG TAB PO SCH (21:55)
[2023-08-27] MEDS: [UNRECOGNIZED DRUG - OTHER] IV SCH ×7 (00:55→23:56)
[2023-08-27] MEDS: DEXTROSE IV SCH ×7 (00:55→23:56)
[2023-08-27] MEDS: oxyCODONE HCL IR 5 MG TAB (IMMEDIATE RELEASE) PO PRN ×4 (08:05→23:56)
[2023-08-27] MEDS: ASPIRIN 81 MG ECTAB PO SCH (08:15)
[2023-08-27] MEDS: LOSARTAN POTASSIUM 50 MG TAB PO SCH (08:15)
[2023-08-27] MEDS: dilTIAZem HCL 180 MG CAPCR PO SCH (08:15)
[2023-08-27] MEDS: hydroCHLOROthiazide 25 MG TAB PO SCH (08:16)
[2023-08-27] MEDS: DOCUSATE SODIUM 100 MG CAP PO SCH ×2 (08:18→19:49)
[2023-08-27 08:35] LABS: Basophils # (auto) 0.04 K/uL (0.00-0.20); Basophils % (auto) 0.3 %; Eosinophils # (auto) 0.04 K/uL (0.00-0.50); Eosinophils % (auto) 0.3 %; Hematocrit (blood only) 27.7 % (42.0-52.0); Hemoglobin 9.4 g/dl (14.0-18.0); Immature Granulocytes # (auto) 0.45 K/uL (0.01-0.20); Immature Granulocytes % (auto) 3.8 %; Lymphocytes % (auto) 10.9 %; Mean Corpuscular Hemoglobin 29.4 pg (25.0-34.0); Mean Corpuscular Hgb Conc 33.9 g/dL (32.0-36.0); Mean Corpuscular Volume 86.6 fL (80.0-100.0); Mean Platelet Volume 9.8 fL (9.4-12.4); Monocytes # (auto) 1.29 K/uL (0.11-0.59); Monocytes % (auto) 10.8 %; Neutrophils # (auto) 8.81 K/uL (1.40-6.50); Neutrophils % (auto) 73.9 %; Platelet Count 216 K/uL (130-400); RDW Coefficient of Variation 12.7 % (11.5-14.5); RDW Standard Deviation 40.2 fL (36.4-46.3); White Blood Count 11.93 K/ul (4.8-10.8)
[2023-08-27 08:57] LABS: BUN Creatinine Ratio 20.2 (10-20); Calcium 8.7 mg/dl (8.6-10.3); Creatinine Clr Calc Pharmacy 62.1 ml/min; Est GFR (African American) 83.6 ml/min; Est GFR (Non-African American) 72.1 ml/min; Potassium 3.4 mmol/L (3.5-5.1)
--- NOTE | 2023-08-27 10:47 | Orthopedic Progress Note ---
Date of Service August 27, 2023 Assessment & Plan (1) Streptococcus infection, group G: Plan: patient will require physical therapy and a short inpatient stay due to weakness. His incision looks good and is dry. He will be on ceftriaxone per infectious disease and then switch to long-term suppression with amoxicillin. Will follow him in the office in 2 weeks time (2) Status post incision and drainage: Admission and Anticipated Discharge Date Admission Date: August 22, 2023 Subjective Chief complaint: Postoperative day #4 status post I&D knee Patient reports no complaints today. He is comfortable at the bedside. His incision is clean dry and intact Physical Exam Physical Exam: ginna dressing is intact there is scant drainage his knee is warm and swollen but not excessively. Thigh and calf are soft and nontender and he is neurologically and vascularly intact Results & Data Vital Signs (Past 12 Hours) Vital Signs Temp Pulse Resp BP BP Pulse Ox O2 Del Method 08/27/23 10:34 Room Air 08/27/23 08:05 37.2 C 85 16 171/73 H 92 Room Air 08/26/23 22:46 37.2 C 99 H 16 179/75 H 95 Room Air
--- NOTE | 2023-08-27 10:59 | Hospitalist Progress Note ---
Date of Service August 27, 2023 Assessment & Plan (1) Infection of prosthetic left knee joint: (2) Bacteremia: Plan: Patient is 78 y/o M with PMH HTN, HLD, CKD III, bladder cancer, prostate cancer s/p radiation seen in medical consultation for medical management. [facility], bacteremia on preliminary blood cultures[facility] 2 sets of blood cultures shows group G beta streptococcus Left knee synovial fluid: Group G beta strep Transthoracic echocardiogram does not show any vegetations Repeat blood cultureno growth till date Antibiotics changed to IV penicillin G 24 units(currently on 4 mu units every 4 hours). Patient to be discharged with continuous infusion. Discussed with case management. He will then require long life antibiotic suppression with PO amoxicillin 500 mg TID; to be started on October 05, 2023. Follow-up with ID as outpatient. 08/27 Medically stable Continue IV antibiotics (3) Left wrist pain: Plan: Patient complained of left wrist discomfort and some edema X-ray of left wrist shows soft tissue swelling. Also fifth PIP joint space narrowing reflective of osteoarthritis or inflammatory/erosive arthritis. Treatment per primary. Not worsening as per patient (4) HTN (hypertension): Plan: Stable Continue diltiazem, On hydrochlorothiazide and losartan (5) HLD (hyperlipidemia): Plan: Continue rosuvastatin (6) CKD (chronic kidney disease), stage III: Plan: Creatinine at baseline. Monitor renal functions, avoid nephrotoxic agents when able (7) Prostate cancer: (8) Bladder cancer: Plan: Follows with urology DVT Prophylaxis Aspirin Full Code as per discussion with pt Follows with Gladys Peres PA-C for routine care Admission and Anticipated Discharge Date Admission Date: August 22, 2023 Subjective Follow-up for bacteremia, etc. Seen resting in bed side chair, comfortable, not in distress States he feels okay overall except for being weak Minimal discomfort over the left knee no chest pain, dyspnea, palpitations, dizziness No other new symptoms Review of Systems Review of Systems: all noted and negative except for above Physical Exam Physical Exam: General- oriented x 3, not in distress, speaks in sentences with no effort or accessory muscle use Eyes- anicteric Neck- no JVD Lungs- clear breath sounds bilaterally, no rales/wheezes Heart- normal rate, regular rhythm; no murmurs Abdomen- normal bowel sounds, nondistended, soft, nontender Extremities-left lower extremity: Mild edema noted, positive knee immobilizer in place Right lower extremity: Essentially normal Left hand: Mild edema, no warmth, no tenderness, good range of motion Neuro- alert, oriented x 3; no gross focal neurologic deficits Skin- warm & dry Results & Data Results & Data Vital Signs (Past 12 Hours) Vital Signs Temp Pulse Resp BP Pulse Ox O2 Del Method 08/27/23 10:34 Room Air 08/27/23 08:05 37.2 C 85 16 171/73 H 92 Room Air all noted and reviewed including below (1) Infection of prosthetic left knee joint Encounter type: initial encounter Qualified Code(s): T84.54XA - Infection and inflammatory reaction due to internal left knee prosthesis, initial encounter
[2023-08-27] MEDS: ACETAMINOPHEN 325 MG TAB PO PRN (16:49)
[2023-08-27] MEDS: ROSUVASTATIN CALCIUM 10 MG TAB PO SCH (19:49)
[2023-08-28] MEDS: [UNRECOGNIZED DRUG - OTHER] IV SCH ×6 (03:54→23:54)
[2023-08-28] MEDS: DEXTROSE IV SCH ×6 (03:54→23:54)
[2023-08-28] MEDS: oxyCODONE HCL IR 5 MG TAB (IMMEDIATE RELEASE) PO PRN ×5 (03:55→23:55)
[2023-08-28] MEDS: ASPIRIN 81 MG ECTAB PO SCH (09:38)
[2023-08-28] MEDS: hydroCHLOROthiazide 25 MG TAB PO SCH (09:39)
[2023-08-28] MEDS: dilTIAZem HCL 180 MG CAPCR PO SCH (09:39)
[2023-08-28] MEDS: LOSARTAN POTASSIUM 50 MG TAB PO SCH (09:39)
[2023-08-28] MEDS: DOCUSATE SODIUM 100 MG CAP PO SCH (09:41)
--- NOTE | 2023-08-28 10:16 | Orthopedic Progress Note ---
Date of Service August 28, 2023 Assessment & Plan (1) Streptococcus infection, group G: Plan: patient will require physical therapy and a short inpatient stay due to weakness. His incision looks good and is dry. He will be on ceftriaxone per infectious disease and then switch to long-term suppression with amoxicillin. Will follow him in the office in 2 weeks time Follow-up will be in the office on September 09. (2) Status post incision and drainage: Plan: See above Admission and Anticipated Discharge Date Admission Date: August 22, 2023 Supervising Physician Co-Signing Physician Notes I have seen and discussed the case with the collaborating VIRAL. I agree with the above H&P. I have reviewed and confirmed the patients medical history, the findings on physical examination, and the patients diagnosis and treatment plan with Bandar STRATTON and agree with the information documented. In short, Mr. Latham is a 78 year old with history of bilateral knee replacement with polyexchange on 07/[address] Vanegas. He was found to have septic arthritis, and now bacteremia with 2/2 cultures + for anaerobes at [facility]. Patient admitted under ortho for washout planned 08/23 with medicine comanagement consulted. Since knee exchange, patient reports recovering well until 08/21 when he felt fatigued and sickly. He reports a likely fall as he was sitting, then awoke on the ground. The evening was marked by chills and subjective fevers, prompting presentation to [facility]. Of note patient underwent C-Scope on 08/20, as possible seeding source for bacteremia? Physical exam Constitutional: weak, but pleasant gentleman, lethargic on exam HEENT: PERRLA, MMM CV: RRR, no murmur RESP: CTABL GI NTND BS+ MSK Left knee with surgical incision well approximated, diffuse tight edema, small area of erythema at superior aspect on surgical incision Left metacarpal/swelling edema, ROM limited 2/2 pain SKIN hot, dry #Left septic joint, left knee #Sepsis #Bacteremia 2/2 anerobic organisms -[facility] with blood cultures 2/2 + anerobes, follow up in infections -Continue vanc zosyn -Repeat blood culutres in am -Monitor pain in left wrist to ensure no seeding of joint; follow up wrist xray -ID consult placed, appreciate recs Rest of plan as above Subjective Follow-up for bacteremia, etc. Seen resting in bed side chair, comfortable, not in distress States he feels okay overall except for being weak Minimal discomfort over the left knee no chest pain, dyspnea, palpitations, dizziness No other new symptoms Postoperative day #5 status post I&D and synovectomy: As above patient is relatively comfortable. Really is awaiting rehab approval and placement. Physical Exam Physical Exam: ginna dressing is intact there is scant drainage his knee is warm and swollen but not excessively. Thigh and calf are soft and nontender and he is neurologically and vascularly intact Results & Data Vital Signs (Past 12 Hours) Vital Signs Temp Pulse Resp BP Pulse Ox O2 Del Method 08/28/23 08:51 36.6 C 71 16 164/65 H 93 Room Air 08/27/23 23:26 36.6 C 68 18 158/70 H 94 Room Air
[2023-08-28 10:45] LABS: Basophils # (auto) 0.03 K/uL (0.00-0.20); Basophils % (auto) 0.2 %; Eosinophils # (auto) 0.06 K/uL (0.00-0.50); Eosinophils % (auto) 0.5 %; Hematocrit (blood only) 29.8 % (42.0-52.0); Hemoglobin 9.9 g/dl (14.0-18.0); Immature Granulocytes # (auto) 0.46 K/uL (0.01-0.20); Immature Granulocytes % (auto) 3.8 %; Lymphocytes # (auto) 1.19 K/uL (1.20-3.40); Lymphocytes % (auto) 9.9 %; Mean Corpuscular Hemoglobin 28.7 pg (25.0-34.0); Mean Corpuscular Hgb Conc 33.2 g/dL (32.0-36.0); Mean Corpuscular Volume 86.4 fL (80.0-100.0); Mean Platelet Volume 9.5 fL (9.4-12.4); Monocytes # (auto) 1.05 K/uL (0.11-0.59); Monocytes % (auto) 8.7 %; Neutrophils # (auto) 9.26 K/uL (1.40-6.50); Neutrophils % (auto) 76.9 %; Platelet Count 328 K/uL (130-400); RDW Coefficient of Variation 12.7 % (11.5-14.5); RDW Standard Deviation 40.1 fL (36.4-46.3); Red Blood Count 3.45 M/uL (4.70-6.10); White Blood Count 12.05 K/ul (4.8-10.8)
[2023-08-28 10:54] LABS: BUN Creatinine Ratio 21.3 (10-20); Calcium 9.2 mg/dl (8.6-10.3); Creatinine Clr Calc Pharmacy 65.4 ml/min; Est GFR (Non-African American) 76.8 ml/min; Potassium 3.7 mmol/L (3.5-5.1)
--- NOTE | 2023-08-28 18:34 | Hospitalist Progress Note ---
Date of Service August 28, 2023 delayed entry date of service noted above Assessment & Plan (1) Infection of prosthetic left knee joint: (2) Bacteremia: Plan: Patient is 78 y/o M with PMH HTN, HLD, CKD III, bladder cancer, prostate cancer s/p radiation seen in medical consultation for medical management. Was transfer from [facility] for left knee septic joint, bacteremia on preliminary blood cultures. [facility] ER 2 sets of blood cultures shows group G beta streptococcus Left knee synovial fluid: Group G beta strep Transthoracic echocardiogram does not show any vegetations Repeat blood cultureno growth till date Antibiotics changed to IV penicillin G 24 units(currently on 4 mu units every 4 hours). Patient to be discharged with continuous infusion. Discussed with case management. He will then require long life antibiotic suppression with PO amoxicillin 500 mg TID; to be started on October 05, 2023. Follow-up with ID as outpatient. 08/28 Medically stable Continue IV antibiotics (3) Left wrist pain: Plan: Patient complained of left wrist discomfort and some edema X-ray of left wrist shows soft tissue swelling. Also fifth PIP joint space narrowing reflective of osteoarthritis or inflammatory/erosive arthritis. Treatment per primary. Not worsening as per patient (4) HTN (hypertension): Plan: Stable Continue diltiazem, On hydrochlorothiazide and losartan (5) HLD (hyperlipidemia): Plan: Continue rosuvastatin (6) CKD (chronic kidney disease), stage III: Plan: Creatinine at baseline. Monitor renal functions, avoid nephrotoxic agents when able (7) Prostate cancer: (8) Bladder cancer: Plan: Follows with urology DVT Prophylaxis Aspirin Full Code as per discussion with pt Follows with Gladys Peres PA-C for routine care Admission and Anticipated Discharge Date Admission Date: August 22, 2023 Subjective Follow-up for knee infection, etc. Seen resting in bed, comfortable, not in distress States he feels fine overall Minimal pain on the left knee, intermittent Still on the weak side Appetite still not great No other new symptoms Review of Systems Review of Systems: all noted and negative except for above Physical Exam Physical Exam: General- oriented x 3, not in distress, speaks in sentences with no effort or accessory muscle use Eyes- anicteric Neck- no JVD Lungs- clear breath sounds bilaterally, no crackles or wheezing Heart- normal rate, regular rhythm; no murmurs Abdomen- normal bowel sounds, nondistended, soft, nontender Extremities- mild pretibial edema, no calf tenderness Neuro- alert, oriented x 3; no gross focal neurologic deficits Skin- warm & dry Results & Data Results & Data Vital Signs (Past 12 Hours) Vital Signs Temp Pulse Resp BP Pulse Ox O2 Del Method 08/28/23 14:46 36.6 C 83 18 149/72 H 96 Room Air 08/28/23 08:51 36.6 C 71 16 164/65 H 93 Room Air all noted and reviewed including below (1) Infection of prosthetic left knee joint Encounter type: initial encounter Qualified Code(s): T84.54XA - Infection and inflammatory reaction due to internal left knee prosthesis, initial encounter
[2023-08-28] MEDS ORDERED: POLYETHYLENE (MIRALAX) 17 GM PACK PO PRN (19:37)
[2023-08-28] MEDS: ROSUVASTATIN CALCIUM 10 MG TAB PO SCH (19:52)
[2023-08-28] MEDS: DOCUSATE SODIUM/SENNA 50/8.6MG TAB PO SCH (20:00)
[2023-08-29] MEDS: oxyCODONE HCL IR 5 MG TAB (IMMEDIATE RELEASE) PO PRN ×4 (04:08→17:11)
[2023-08-29] MEDS: DEXTROSE IV SCH ×6 (04:08→23:45)
[2023-08-29] MEDS: [UNRECOGNIZED DRUG - OTHER] IV SCH ×6 (04:08→23:45)
[2023-08-29] MEDS: DOCUSATE SODIUM/SENNA 50/8.6MG TAB PO SCH ×2 (09:03→20:09)
[2023-08-29] MEDS: dilTIAZem HCL 180 MG CAPCR PO SCH (09:03)
[2023-08-29] MEDS: LOSARTAN POTASSIUM 50 MG TAB PO SCH (09:03)
[2023-08-29] MEDS: hydroCHLOROthiazide 25 MG TAB PO SCH (09:03)
[2023-08-29] MEDS: ASPIRIN 81 MG ECTAB PO SCH ×2 (09:03→20:09)
[2023-08-29 10:44] LABS: BUN Creatinine Ratio 20.6 (10-20); Calcium 9.6 mg/dl (8.6-10.3); Creatinine Clr Calc Pharmacy 57.4 ml/min; Est GFR (African American) 76.1 ml/min; Est GFR (Non-African American) 65.7 ml/min; Potassium 4.1 mmol/L (3.5-5.1)
--- NOTE | 2023-08-29 12:19 | Orthopedic Progress Note ---
Date of Service August 29, 2023 Assessment & Plan (1) Streptococcus infection, group G: Plan: POD 6 s/p I/D poly change left TKA PT/OT protocols. WBAT. Gentle ROM. DVT prophylaxis - ASA po bid. SCD's Pain management as written DC planning - Plans have changed. [facility] auth denied even after peer review by Dr. Vanegas. Backup plan was SNF but now family saying they feel they can help with his care at home along with services. Plan for 6 weeks of IV Penicillin G Pot 4mu IV q4h followed by Amoxicillin 500mg po tid. F/U with Dr Vanegas Sep 09. (2) Status post incision and drainage: Plan: See above Admission and Anticipated Discharge Date Admission Date: August 22, 2023 Subjective POD 6 Pt sitting up in chair at bedside. No complaints today. States his knee is feeling ok today. Pain controlled. Physical Exam Physical Exam: Jyoti Dressing C/D/I. Calves soft,NT. NV intact. Toes mobile. Results & Data Vital Signs (Past 12 Hours) Vital Signs Temp Pulse Resp BP Pulse Ox O2 Del Method 08/29/23 06:59 37.3 C 80 18 143/62 H 92 Room Air
[2023-08-29] MEDS: SODIUM CHLORIDE 0.9% 1,000 ML IV SCH ×2 (13:47→23:45)
[2023-08-29] MEDS: ROSUVASTATIN CALCIUM 10 MG TAB PO SCH (20:09)
[2023-08-30] MEDS: DEXTROSE IV SCH ×5 (03:41→20:11)
[2023-08-30] MEDS: [UNRECOGNIZED DRUG - OTHER] IV SCH ×5 (03:41→20:11)
[2023-08-30 06:56] LABS: BUN Creatinine Ratio 22.8 (10-20); Creatinine Clr Calc Pharmacy 60.8 ml/min; Est GFR (African American) 81.6 ml/min; Est GFR (Non-African American) 70.4 ml/min; Potassium 3.9 mmol/L (3.5-5.1)
[2023-08-30] MEDS: dilTIAZem HCL 180 MG CAPCR PO SCH (08:13)
[2023-08-30] MEDS: LOSARTAN POTASSIUM 50 MG TAB PO SCH (08:13)
[2023-08-30] MEDS: DOCUSATE SODIUM/SENNA 50/8.6MG TAB PO SCH ×2 (08:13→20:15)
[2023-08-30] MEDS: ASPIRIN 81 MG ECTAB PO SCH ×2 (08:13→20:15)
--- NOTE | 2023-08-30 10:56 | Orthopedic Progress Note ---
Date of Service August 30, 2023 Assessment & Plan (1) Streptococcus infection, group G: Plan: POD 7 s/p I/D poly change left TKA PT/OT protocols. WBAT. Gentle ROM. DVT prophylaxis - ASA po bid. SCD's Pain management as written DC planning - Plan for home with home health. The patient's antibiotics are set for the next 6 weeks. He will be on lifelong oral antibiotic suppression once the IV antibiotics are completed. Plan for 6 weeks of IV Penicillin G Pot 4mu IV q4h followed by Amoxicillin 500mg po tid. F/U with Dr Romina Grant 9. I will discuss with the hospitalist and case management the patient's discharge. If his antibiotics are able to be set up and he is medically stable, he may be able to discharge later today. (2) Status post incision and drainage: Plan: See above Admission and Anticipated Discharge Date Admission Date: August 22, 2023 Subjective Patient states he is doing well. No discomfort within the left knee. No new complaints today. Physical Exam Constitutional: WD/WN, vitals as above no acute distress (Patient was resting comfortably in bed at the time of visit) Musculoskeletal: Knee: + surgical incision (Left knee: KIRILL dressing in place and functioning.); knee normal to inspection, no skin erythema, no ecchymosis and no surgical drain present Skin: no rashes, warm and dry Trauma: no evidence of skin trauma Neurologic: normal touch/pain/proprioception Psychiatric: A+Ox3, euthymic affect Speech: normal rate/rhythm/volume of speech Results & Data Vital Signs (Past 12 Hours) Vital Signs Temp Pulse Resp BP Pulse Ox O2 Del Method O2 Flow Rate 08/30/23 09:20 Nasal Cannula 2 08/30/23 06:43 37.4 C 83 18 145/72 H 93 Room Air 08/30/23 05:30 37.3 C 80 16 153/71 H 93 Room Air Laboratory Results Laboratory Tests 08/30/23 06:03 Sodium 129 L Potassium 3.9 Chloride 92 L BUN 23 Creatinine 1.01
[2023-08-30] MEDS: SODIUM CHLORIDE 0.9% 1,000 ML IV SCH (11:37)
[2023-08-30] MEDS: oxyCODONE HCL IR 5 MG TAB (IMMEDIATE RELEASE) PO PRN (12:55)
[2023-08-30 14:34] LABS: Creatinine Clr Calc Pharmacy 54.9 ml/min; Est GFR (Non-African American) 62.1 ml/min; Potassium 4.2 mmol/L (3.5-5.1)
--- NOTE | 2023-08-30 19:54 | Hospitalist Progress Note ---
Date of Service August 30, 2023 delayed entry date of service 08/29 Assessment & Plan (1) Infection of prosthetic left knee joint: (2) Bacteremia: Plan: Patient is 78 y/o M with PMH HTN, HLD, CKD III, bladder cancer, prostate cancer s/p radiation seen in medical consultation for medical management. Was transfer from [facility] for left knee septic joint, bacteremia on preliminary blood cultures. [facility] ER 2 sets of blood cultures shows group G beta streptococcus Left knee synovial fluid: Group G beta strep Transthoracic echocardiogram does not show any vegetations Repeat blood cultureno growth till date Antibiotics changed to IV penicillin G 24 units(currently on 4 mu units every 4 hours). Patient to be discharged with continuous infusion. Discussed with case management. He will then require long life antibiotic suppression with PO amoxicillin 500 mg TID; to be started on October 05, 2023. Follow-up with ID as outpatient. 08/29 Medically stable overall except for hyponatremia Continue IV antibiotics Hyponatremia Sodium 125 Start IV NSS (3) Left wrist pain: Plan: Patient complained of left wrist discomfort and some edema X-ray of left wrist shows soft tissue swelling. Also fifth PIP joint space narrowing reflective of osteoarthritis or inflammatory/erosive arthritis. Treatment per primary. Not worsening as per patient (4) HTN (hypertension): Plan: Stable Continue diltiazem, On losartan hold HCTZ (5) HLD (hyperlipidemia): Plan: Continue rosuvastatin (6) CKD (chronic kidney disease), stage III: Plan: Creatinine at baseline. Monitor renal functions, avoid nephrotoxic agents when able (7) Prostate cancer: (8) Bladder cancer: Plan: Follows with urology DVT Prophylaxis Aspirin Full Code as per discussion with pt Follows with Gladys Peres PA-C for routine care Admission and Anticipated Discharge Date Admission Date: August 22, 2023 Subjective Follow-up for knee infection, etc. Resting in bedside chair Comfortable, not in distress States he feels fine overall Has minimal knee discomfort No other new symptom Review of Systems Review of Systems: all noted and negative except for above Physical Exam Physical Exam: General- oriented x 3, not in distress, speaks in sentences with no effort or accessory muscle use Eyes- anicteric Neck- no JVD Lungs- clear breath sounds bilaterally, no rales/wheezes Heart- normal rate, regular rhythm; no murmurs Abdomen- normal bowel sounds, nondistended, soft, nontender Extremities- mild pretibial edema, no calf tenderness Neuro- alert, oriented x 3; no gross focal neurologic deficits Skin- warm & dry Results & Data Results & Data Vital Signs (Past 12 Hours) Vital Signs O2 Del Method O2 Flow Rate 08/30/23 09:20 Nasal Cannula 2 all noted and reviewed including below (1) Infection of prosthetic left knee joint Encounter type: initial encounter Qualified Code(s): T84.54XA - Infection and inflammatory reaction due to internal left knee prosthesis, initial encounter
--- NOTE | 2023-08-30 19:58 | Hospitalist Progress Note ---
Date of Service August 30, 2023 Assessment & Plan (1) Infection of prosthetic left knee joint: (2) Bacteremia: Plan: Patient is 78 y/o M with PMH HTN, HLD, CKD III, bladder cancer, prostate cancer s/p radiation seen in medical consultation for medical management. Was transfer from [facility] for left knee septic joint, bacteremia on preliminary blood cultures. [facility] ER 2 sets of blood cultures shows group G beta streptococcus Left knee synovial fluid: Group G beta strep Transthoracic echocardiogram does not show any vegetations Repeat blood cultureno growth till date Antibiotics changed to IV penicillin G 24 units(currently on 4 mu units every 4 hours). Patient to be discharged with continuous infusion. Discussed with case management. He will then require long life antibiotic suppression with PO amoxicillin 500 mg TID; to be started on October 05, 2023. Follow-up with ID as outpatient. 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 Also fifth PIP joint space narrowing reflective of osteoarthritis or inflammatory/erosive arthritis. Treatment per primary. Not worsening as per patient (4) HTN (hypertension): Plan: Stable Continue diltiazem, Hold HCTZ, continue losartan (5) HLD (hyperlipidemia): Plan: Continue rosuvastatin (6) CKD (chronic kidney disease), stage III: Plan: Creatinine at baseline. Monitor renal functions, avoid nephrotoxic agents when able (7) Prostate cancer: (8) Bladder cancer: Plan: Follows with urology DVT Prophylaxis Aspirin Full Code as per discussion with pt Follows with Gladys Peres PA-C for routine care Admission and Anticipated Discharge Date Admission Date: August 22, 2023 Subjective Follow-up for knee infection, etc. Seen sitting at the bedside chair, comfortable, not in distress Intermittent pain in the left knee No fevers or chills, nausea vomiting No headache, dizziness, abdominal pain Appetite still not great No other new symptom Review of Systems Review of Systems: all noted and negative except for above Physical Exam Physical Exam: General- oriented x 3, not in distress, speaks in sentences with no effort or accessory muscle use Eyes- anicteric Neck- no JVD Lungs- clear breath sounds bilaterally, no rales/wheezes Heart- normal rate, regular rhythm; no murmurs Abdomen- normal bowel sounds, nondistended, soft, nontender Extremities-bilateral lower extremity edema No warmth or tenderness Neuro- alert, oriented x 3; no gross focal neurologic deficits Skin- warm & dry Results & Data Results & Data Vital Signs (Past 12 Hours) Vital Signs O2 Del Method O2 Flow Rate 08/30/23 09:20 Nasal Cannula 2 all noted and reviewed including below (1) Infection of prosthetic left knee joint Encounter type: initial encounter Qualified Code(s): T84.54XA - Infection and inflammatory reaction due to internal left knee prosthesis, initial encounter
[2023-08-30] MEDS: ROSUVASTATIN CALCIUM 10 MG TAB PO SCH (20:15)
[2023-08-30 22:32] LABS: BUN Creatinine Ratio 28.3 (10-20); Calcium 9.1 mg/dl (8.6-10.3); Creatinine Clr Calc Pharmacy 62.1 ml/min; Est GFR (African American) 83.6 ml/min; Est GFR (Non-African American) 72.1 ml/min
[2023-08-31] MEDS: DEXTROSE IV SCH ×6 (00:07→21:22)
[2023-08-31] MEDS: [UNRECOGNIZED DRUG - OTHER] IV SCH ×6 (00:07→21:22)
[2023-08-31 07:29] LABS: BUN Creatinine Ratio 26.4 (10-20); Calcium 8.5 mg/dl (8.6-10.3); Creatinine Clr Calc Pharmacy 70.6 ml/min; Est GFR (African American) 95.1 ml/min; Est GFR (Non-African American) 82.1 ml/min; Potassium 3.7 mmol/L (3.5-5.1)
[2023-08-31] MEDS: dilTIAZem HCL 180 MG CAPCR PO SCH (09:18)
[2023-08-31] MEDS: ASPIRIN 81 MG ECTAB PO SCH ×2 (09:18→21:23)
[2023-08-31] MEDS: oxyCODONE HCL IR 5 MG TAB (IMMEDIATE RELEASE) PO PRN ×2 (09:18→21:22)
[2023-08-31] MEDS: DOCUSATE SODIUM/SENNA 50/8.6MG TAB PO SCH ×2 (09:18→21:23)
[2023-08-31] MEDS: LOSARTAN POTASSIUM 50 MG TAB PO SCH (09:18)
[2023-08-31] MEDS: UREA (UREA-NA) 15 GM PACK PO SCH ×2 (11:20→21:23)
[2023-08-31] MEDS: POTASSIUM CHLORIDE CRTAB 20 MEQ TABCR PO SCH (11:20)
--- NOTE | 2023-08-31 11:37 | Nephrology Consultation ---
Date of Consultation August 31, 2023 Assessment & Plan (1) Hyponatremia: Patient with hyponatremia likely due to SIADH and prior hydrochlorothiazide use. Sodium has been fluctuating between high 120s to low 130s. Serum osmolality was 272 which is true hypoosmolar hyponatremia. -Will maintain the fluid limit of 1.5 L daily. -Will start urea 15 g twice daily -Daily BMP (2) Streptococcal bacteremia: Patient with infected left knee. He is status post washout of the prosthetic joint. He is receiving ampicillin per primary team. (3) HTN (hypertension): Blood pressure is controlled on current regimen. Patient to stop hydrochlorothiazide going forward even after discharge due to hyponatremia History of Present Illness Reason for Consultation: Hyponatremia Requesting Physician: Calderon Vanegas MD Attending Physician: Calderon Vanegas MD History of Present Illness Patient is 78 y/o M with PMH HTN, HLD, CKD III, bladder cancer, prostate cancer s/p radiation seen in consultation for hyponatremia. Was transfer from [facility] for left knee septic joint. Patient had total knee replacement in 2009 with revision around 2022 but this was complicated by infection and s/p washout few days ago. [facility] ER 2 sets of blood cultures showed group G beta streptococcus and Left knee synovial fluid: Group G beta strep. Patient is receiving IV ampicillin. His sodium has been fluctuating in the high 120s low 130s. He was on hydrochlorothiazide at home but that said been held this admission. Serum osmolality was 272 which is low. He was drinking about 2 L of fluids daily. Main complaint today is pain in the left knee. No nausea or vomiting. Recent labs and imaging were reviewed. Allergies Allergy/AdvReac Type Severity Reaction Status Date / Time No Known Allergies Verified 12/22/09 14:59 Home Medications Medication Instructions Recorded Confirmed Type aspirin 81 mg capsule,delayed 81 mg PO DAILY 08/22/23 08/22/23 History release diltiazem HCl 360 mg 360 mg PO DAILY 08/22/23 08/22/23 History capsule,extended release 24 hr hydrochlorothiazide 25 mg tablet 25 mg PO DAILY 08/22/23 08/22/23 History losartan 100 mg tablet 100 mg PO DAILY 08/22/23 08/22/23 History dvhljork-yvtlqhlc-dytvv acid 400 1 tab PO DAILY 08/22/23 08/22/23 History mcg-vit K 20 mcg-lycop 300 mcg tablet naproxen 500 mg tablet 500 mg PO BID PRN Pain 08/22/23 08/22/23 History rosuvastatin 10 mg tablet 10 mg PO HS 08/22/23 08/22/23 History acetaminophen 500 mg capsule 1,000 mg (2 x 500 mg) PO Q8H pain 08/27/23 Rx 14 days #84 caps aspirin 81 mg tablet,delayed 81 mg PO BID 30 days #60 tabs 08/27/23 Rx release (Ecotrin Low Strength) amoxicillin 500 mg capsule 500 mg PO TID 30 days #90 caps 08/29/23 Rx oxycodone 5 mg tablet 5 mg PO Q4H PRN pain #30 tabs 08/29/23 Rx penicillin G potassium 5 million 4 mmu IM Q4H 40 days #10 ea 08/29/23 Rx unit solution for injection polyethylene glycol 3350 17 gram 17 g PO DAILY PRN constipation #5 08/29/23 Rx oral powder packet (Miralax) ea Patient History Medical History Bladder cancer Prostate cancer CKD (chronic kidney disease), stage III HLD (hyperlipidemia) HTN (hypertension) Surgical History History of cystoscopy Hx of colonoscopy 08/20/23: Dr Cates History of appendectomy History of knee replacement Right knee. 2009. Dr Vanegas Left knee: 2009. Dr Vanegas Family History Other Cancer Social History (Updated 08/22/23 @ 21:23 by Lola Portillo PA-C) Smoking Status: Never smoker Hx Alcohol Use: No Hx Substance Use: No Preferred Language: Barbadian Communication Ability: Effective Student Services Coordinator Required: No Beliefs That Will Affect Care: None Current Living Situation: Spouse Feels Safe at Home: Yes Safety Concerns: Feels Safe At This Time Assistive Devices: Stair Lift Review of Systems 2 Review of Systems: All other systems were reviewed and negative except as noted in HPI Physical Exam 2 Physical Exam: General exam: Appears comfortable, no acute distress HEENT: Pupils are equal and reactive to light Neck: No JVD, neck is supple trachea is midline Respiratory system: Clear breath sounds bilaterally. Gastrointestinal: Abdomen is soft, non distended, non tender, bowel sounds are present CVS: Regular rate and rhythm. No murmurs, rubs or gallops Musculoskeletal: No joint or muscle tenderness Extremities: Left knee is swollen and tender Neuro: Oriented, no tremors, no focal neurological deficits Skin: No rashes Results & Data Vital Signs (Past 12 Hours) Vital Signs Temp Pulse Resp BP Pulse Ox O2 Del Method 08/31/23 07:06 37.3 C 76 18 135/67 93 Room Air Laboratory Results 08/31/23 06:08
--- NOTE | 2023-08-31 11:46 | Orthopedic Progress Note ---
Date of Service August 31, 2023 Assessment & Plan (1) Streptococcus infection, group G: Plan: POD 8 s/p I/D poly change left TKA PT/OT protocols. WBAT. Gentle ROM. DVT prophylaxis - ASA po bid. SCD's Pain management as written DC planning - Plan for home with home health. The patient's antibiotics are set for the next 6 weeks. He will be on lifelong oral antibiotic suppression once the IV antibiotics are completed. Plan for 6 weeks of IV Penicillin G Pot 4mu IV q4h followed by Amoxicillin 500mg po tid. F/U with Dr Vanegas Rudy 9. The hospitalist is continuing to follow his sodium. When he is stable medically, the patient will be able to be discharged home with home health. The family has expressed that they would feel better if he stays for 2 more days before being discharged even if he is medically stable. If they feel he will be unable to be safe at home, we may need to reconsider a care home facility. (2) Status post incision and drainage: Plan: See above Admission and Anticipated Discharge Date Admission Date: August 22, 2023 Subjective Continues to do well as far as pain within the left knee. No new complaints today. Physical Exam Constitutional: WD/WN, vitals as above no acute distress (Patient was resting comfortably in bed at the time of visit) Musculoskeletal: Knee: + surgical incision (Left knee: KIRILL dressing in place and functioning.); knee normal to inspection, no skin erythema, no ecchymosis and no surgical drain present Skin: no rashes, warm and dry Trauma: no evidence of skin trauma Neurologic: normal touch/pain/proprioception Psychiatric: A+Ox3, euthymic affect Speech: normal rate/rhythm/volume of speech Results & Data Vital Signs (Past 12 Hours) Vital Signs Temp Pulse Resp BP Pulse Ox O2 Del Method 08/31/23 07:06 37.3 C 76 18 135/67 93 Room Air
--- NOTE | 2023-08-31 19:34 | Hospitalist Progress Note ---
Date of Service August 31, 2023 delayed entry date of service noted above Assessment & Plan (1) Infection of prosthetic left knee joint: (2) Bacteremia: Plan: Patient is 78 y/o M with PMH HTN, HLD, CKD III, bladder cancer, prostate cancer s/p radiation seen in medical consultation for medical management. Was transfer from [facility] for left knee septic joint, bacteremia on preliminary blood cultures. [facility] ER 2 sets of blood cultures shows group G beta streptococcus Left knee synovial fluid: Group G beta strep Transthoracic echocardiogram does not show any vegetations Repeat blood cultureno growth till date Antibiotics changed to IV penicillin G 24 units(currently on 4 mu units every 4 hours). Patient to be discharged with continuous infusion. Discussed with case management. He will then require long life antibiotic suppression with PO amoxicillin 500 mg TID; to be started on October 05, 2023. Follow-up with ID as outpatient. 08/31 Medically stable Continue IV antibiotics Hyponatremia Improving Sodium 131 On urea twice daily Nephrology consulted (3) Left wrist pain: Plan: Patient complained of left wrist discomfort and some edema X-ray of left wrist shows soft tissue swelling. Also fifth PIP joint space narrowing reflective of osteoarthritis or inflammatory/erosive arthritis. Treatment per primary. Not worsening as per patient (4) HTN (hypertension): Plan: Stable Continue diltiazem, On hydrochlorothiazide and losartan (5) HLD (hyperlipidemia): Plan: Continue rosuvastatin (6) CKD (chronic kidney disease), stage III: Plan: Creatinine at baseline. Monitor renal functions, avoid nephrotoxic agents when able (7) Prostate cancer: (8) Bladder cancer: Plan: Follows with urology DVT Prophylaxis Aspirin Full Code as per discussion with pt Follows with Gladys Peres PA-C for routine care Admission and Anticipated Discharge Date Admission Date: August 22, 2023 Subjective Follow-up for an infection, etc. Seen with patient's family at the bedside States he feels fine overall Family states patient appears clinically improved today Still on the weak side but improving Minimal discomfort left knee No other new symptom Review of Systems Review of Systems: all noted and negative except for above Physical Exam Physical Exam: General- oriented x 3, not in distress, speaks in sentences with no effort or accessory muscle use Eyes- anicteric Neck- no JVD Lungs- clear BS BL Heart- normal rate, regular rhythm; no murmurs Abdomen- normal bowel sounds, nondistended, soft, nontender Extremities- mild BL pretibial edema, no calf tenderness Neuro- alert, oriented x 3; no gross focal neurologic deficits Skin- warm & dry Results & Data Results & Data Vital Signs (Past 12 Hours) Vital Signs Temp Pulse Resp BP Pulse Ox O2 Del Method 08/31/23 16:29 37.5 C 91 H 20 177/53 H 95 Room Air all noted and reviewed including below (1) Infection of prosthetic left knee joint Encounter type: initial encounter Qualified Code(s): T84.54XA - Infection and inflammatory reaction due to internal left knee prosthesis, initial encounter
[2023-08-31] MEDS: ROSUVASTATIN CALCIUM 10 MG TAB PO SCH (21:23)
[2023-09-01] MEDS: [UNRECOGNIZED DRUG - OTHER] IV SCH ×6 (00:36→20:36)
[2023-09-01] MEDS: DEXTROSE IV SCH ×6 (00:36→20:36)
[2023-09-01] MEDS: oxyCODONE HCL IR 5 MG TAB (IMMEDIATE RELEASE) PO PRN ×2 (03:58→10:13)
[2023-09-01 07:05] LABS: BUN Creatinine Ratio 31.8 (10-20); Calcium 8.5 mg/dl (8.6-10.3); Creatinine Clr Calc Pharmacy 69.8 ml/min; Est GFR (African American) 94.7 ml/min; Est GFR (Non-African American) 81.7 ml/min; Potassium 4.2 mmol/L (3.5-5.1)
[2023-09-01] MEDS: ASPIRIN 81 MG ECTAB PO SCH ×2 (08:04→20:35)
[2023-09-01] MEDS: LOSARTAN POTASSIUM 50 MG TAB PO SCH (08:04)
[2023-09-01] MEDS: DOCUSATE SODIUM/SENNA 50/8.6MG TAB PO SCH ×2 (08:04→20:35)
[2023-09-01] MEDS: dilTIAZem HCL 180 MG CAPCR PO SCH (08:05)
[2023-09-01] MEDS: POTASSIUM CHLORIDE CRTAB 20 MEQ TABCR PO SCH ×2 (08:05→20:36)
[2023-09-01] MEDS: UREA (UREA-NA) 15 GM PACK PO SCH ×2 (08:05→20:34)
[2023-09-01] MEDS: FUROSEMIDE INJ 20 MG/2 ML VIAL IV SCH (10:47)
--- NOTE | 2023-09-01 10:58 | Nephrology Progress Note ---
Date of Service September 01, 2023 Assessment & Plan (1) Hyponatremia: Plan: Patient with hyponatremia likely due to SIADH and prior hydrochlorothiazide use. Sodium has been fluctuating between high 120s to low 130s. Serum osmolality was 272 which is true hypoosmolar hyponatremia. -Will maintain the fluid limit of 1.5 L daily. -Will continue urea 15 g twice daily -Daily BMP -Will add Lasix 20 mg IV daily -Increase potassium chloride to 20 mcg twice daily (2) Streptococcal bacteremia: Plan: Patient with infected left knee. He is status post washout of the prosthetic joint. He is receiving ampicillin per primary team. (3) HTN (hypertension): Plan: Blood pressure is controlled on current regimen. Patient to stop hydrochlorothiazide going forward even after discharge due to hyponatremia Admission and Anticipated Discharge Date Admission Date: August 22, 2023 Subjective Seen for hyponatremia. He feels a little better denies any shortness of breath, nausea or vomiting. Main complaint is weakness. Sodium is still low. Review of Systems 2 Review of Systems: All other systems were reviewed and negative except as noted in HPI Physical Exam 2 Physical Exam: General exam: Appears comfortable, no acute distress HEENT: Pupils are equal and reactive to light Neck: No JVD, neck is supple trachea is midline Respiratory system: Clear breath sounds bilaterally. Gastrointestinal: Abdomen is soft, non distended, non tender, bowel sounds are present CVS: Regular rate and rhythm. No murmurs, rubs or gallops Musculoskeletal: No joint or muscle tenderness Extremities: Left knee is swollen and tender Neuro: Oriented, no tremors, no focal neurological deficits Skin: No rashes Results & Data Vital Signs (Past 12 Hours) Vital Signs Temp Pulse Resp BP Pulse Ox O2 Del Method 09/01/23 07:00 37.2 C 79 18 145/69 H 93 Room Air 09/01/23 01:25 154/66 H Laboratory Results 09/01/23 06:18
--- NOTE | 2023-09-01 11:27 | Orthopedic Progress Note ---
Date of Service September 01, 2023 Assessment & Plan (1) Streptococcus infection, group G: Plan: POD 9 s/p I/D poly change left TKA PT/OT protocols. WBAT. Gentle ROM. DVT prophylaxis - ASA po bid. SCD's Pain management as written DC planning - Plan for home with home health. The patient's antibiotics are set for the next 6 weeks. He will be on lifelong oral antibiotic suppression once the IV antibiotics are completed. Plan for 6 weeks of IV Penicillin G Pot 4mu IV q4h followed by Amoxicillin 500mg po tid. F/U with Dr Vanegas Sep 09. Nephrology consult completed. The patient's HCTZ is being held. They are monitoring the sodium on a daily basis. Medicine has agreed to take the patient onto their service. The hope is that the patient will be able to be discharged in approximately 2 days. The patient will then follow-up with Dr. Vanegas as scheduled on 09.09.23. (2) Status post incision and drainage: Plan: See above Admission and Anticipated Discharge Date Admission Date: August 22, 2023 Subjective Pain continues to do well in the left knee. He is ambulating well. No complaints as far as the knee goes. Physical Exam Constitutional: WD/WN, vitals as above no acute distress (Patient was resting comfortably in bed at the time of visit) Musculoskeletal: Knee: + surgical incision (Left knee: Incision is well- approximated. No drainage or erythema.); knee normal to inspection, no skin erythema, no ecchymosis and no surgical drain present Skin: no rashes, warm and dry Trauma: no evidence of skin trauma Neurologic: normal touch/pain/proprioception Psychiatric: A+Ox3, euthymic affect Speech: normal rate/rhythm/volume of speech Results & Data Vital Signs (Past 12 Hours) Vital Signs Temp Pulse Resp BP Pulse Ox O2 Del Method 09/01/23 07:00 37.2 C 79 18 145/69 H 93 Room Air 09/01/23 01:25 154/66 H Laboratory Results Laboratory Tests 09/01/23 06:18 Sodium 130 L Potassium 4.2 Chloride 96 L BUN 28 H Creatinine 0.88
--- NOTE | 2023-09-01 16:25 | Hospitalist Progress Note ---
Date of Service September 01, 2023 Assessment & Plan (1) Infection of prosthetic left knee joint: (2) Bacteremia: Plan: Patient is 78 y/o M with PMH HTN, HLD, CKD III, bladder cancer, prostate cancer s/p radiation seen in medical consultation for medical management. Was transfer from [facility] for left knee septic joint, bacteremia on preliminary blood cultures. [facility] ER 2 sets of blood cultures shows group G beta streptococcus Left knee synovial fluid: Group G beta strep Transthoracic echocardiogram does not show any vegetations Repeat blood cultureno growth till date Antibiotics changed to IV penicillin G 24 units(currently on 4 mu units every 4 hours). Patient to be discharged with continuous infusion. Discussed with case management. He will then require long life antibiotic suppression with PO amoxicillin 500 mg TID; to be started on October 05, 2023. Follow-up with ID as outpatient. 09/01 Medically stable Continue IV antibiotics Hyponatremia Improving Sodium 130 On urea twice daily Lasix 20 mg IV daily Potassium twice daily Nephrology consulted (3) Left wrist pain: Plan: Patient complained of left wrist discomfort and some edema X-ray of left wrist shows soft tissue swelling. Also fifth PIP joint space narrowing reflective of osteoarthritis or inflammatory/erosive arthritis. Treatment per primary. Not worsening as per patient (4) HTN (hypertension): Plan: Stable Continue diltiazem, Holding HCTZ Continue losartan Add hydralazine 25 mg p.o. twice daily (5) HLD (hyperlipidemia): Plan: Continue rosuvastatin (6) CKD (chronic kidney disease), stage III: Plan: Creatinine at baseline. Monitor renal functions, avoid nephrotoxic agents when able (7) Prostate cancer: (8) Bladder cancer: Plan: Follows with urology DVT Prophylaxis Aspirin Full Code as per discussion with pt Follows with Gladys Peres PA-C for routine care Admission and Anticipated Discharge Date Admission Date: August 22, 2023 Subjective Follow-up for infection, etc. Seen resting in bed, comfortable, not in distress States he feels fine overall No new symptom Review of Systems Review of Systems: all noted and negative except for above Physical Exam Physical Exam: General- oriented x 3, not in distress, speaks in sentences with no effort or accessory muscle use Eyes- anicteric Neck- no JVD Lungs- clear BS BL Heart- normal rate, regular rhythm; no murmurs Abdomen- normal bowel sounds, nondistended, soft, no tenderness Extremities- no pretibial edema, no calf tenderness Neuro- alert, oriented x 3; no gross focal neurologic deficits Skin- warm & dry Results & Data Results & Data Vital Signs (Past 12 Hours) Vital Signs Temp Pulse Resp BP Pulse Ox O2 Del Method 09/01/23 14:37 36.9 C 99 H 16 163/68 H 93 Room Air 09/01/23 07:00 37.2 C 79 18 145/69 H 93 Room Air all noted and reviewed including below (1) Infection of prosthetic left knee joint Encounter type: initial encounter Qualified Code(s): T84.54XA - Infection and inflammatory reaction due to internal left knee prosthesis, initial encounter
[2023-09-01] MEDS ORDERED: hydrALAZINE HCL 20 MG/ML VIAL IV PRN (16:26)
[2023-09-01] MEDS: ROSUVASTATIN CALCIUM 10 MG TAB PO SCH (20:35)
[2023-09-02] MEDS: DEXTROSE IV SCH ×6 (00:22→20:23)
[2023-09-02] MEDS: [UNRECOGNIZED DRUG - OTHER] IV SCH ×6 (00:22→20:23)
[2023-09-02] MEDS: oxyCODONE HCL IR 5 MG TAB (IMMEDIATE RELEASE) PO PRN ×3 (05:50→20:21)
[2023-09-02 07:48] LABS: BUN Creatinine Ratio 32.5 (10-20); Calcium 8.9 mg/dl (8.6-10.3); Est GFR (Non-African American) 83.7 ml/min; Potassium 4.5 mmol/L (3.5-5.1)
[2023-09-02] MEDS: DOCUSATE SODIUM/SENNA 50/8.6MG TAB PO SCH ×2 (08:03→21:26)
[2023-09-02] MEDS: LOSARTAN POTASSIUM 50 MG TAB PO SCH (08:03)
[2023-09-02] MEDS: ASPIRIN 81 MG ECTAB PO SCH ×2 (08:03→21:26)
[2023-09-02] MEDS: dilTIAZem HCL 180 MG CAPCR PO SCH (08:03)
[2023-09-02] MEDS: POTASSIUM CHLORIDE CRTAB 20 MEQ TABCR PO SCH ×2 (08:04→21:27)
[2023-09-02] MEDS: UREA (UREA-NA) 15 GM PACK PO SCH ×2 (08:04→21:26)
[2023-09-02] MEDS: hydrALAZINE HCL 25 MG TAB PO SCH ×2 (08:09→21:26)
[2023-09-02] MEDS: FUROSEMIDE INJ 20 MG/2 ML VIAL IV SCH ×2 (08:27→16:52)
--- NOTE | 2023-09-02 12:34 | Nephrology Progress Note ---
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 Sodium has been fluctuating between high 120s to low 130s and remains there today. Serum osmolality was 272 which is true hypoosmolar hyponatremia. -Will maintain the fluid limit of 1.5 L daily. -Will continue urea 15 g twice daily -Daily BMP -Will increase Lasix 20 mg IV daily to bid 17 -continue already increased potassium chloride to 20 mEq twice daily -added fluid limit 1.5L daily Care coordinated w/ Dr Castro (2) Streptococcal bacteremia: Plan: Patient with infected left knee. He is status post washout of the prosthetic joint. He is receiving ampicillin per primary team; for home infusions (3) HTN (hypertension): Plan: Blood pressure is controlled on current regimen. Patient to stop hydrochlorothiazide going forward even after discharge due to hyponatremia Admission and Anticipated Discharge Date Admission Date: August 22, 2023 Subjective no interval events. endorses pain if moves L knee lese no sob, no n/v,; no new/worrisome voiding sx Review of Systems 2 Review of Systems: All systems reviewed & are unremarkable except as noted in Subjective Physical Exam 2 Constitutional: well developed and well nourished (sitting up in chair on RA) Eyes: EOM intact bilaterally ENMT: Ears: no external ear abnormality Nose: no external nose abnormality Mouth: + dry oral mucous membranes Neck: no nuchal rigidity Respiratory: normal respiratory effort Auscultation: + diminished lung sounds Cardiovascular: Rate/Rhythm: regular rate and regular rhythm Extremities: + edema (LLE prox thigh and distally) Gastrointestinal (Abdomen): Inspection/Auscultation: normal bowel sounds P ercussion/Palpation: abdomen soft; abdomen nontender Musculoskeletal: Extremities: strength 5/5 throughout Skin: no rashes, warm and dry Neurologic: azul, fluent speech, no tremor Psychiatric: Orientation: alert and oriented x 3 Results & Data Vital Signs (Past 12 Hours) Vital Signs Temp Pulse Resp BP Pulse Ox O2 Del Method 09/02/23 07:38 36.9 C 84 16 172/73 H 92 Room Air Laboratory Results 08/28/23 10:16 09/02/23 06:47
--- NOTE | 2023-09-02 14:19 | Hospitalist Progress Note ---
Date of Service September 02, 2023 Assessment & Plan (1) Infection of prosthetic left knee joint: (2) Bacteremia: (3) Left wrist pain: (4) HTN (hypertension): (5) HLD (hyperlipidemia): (6) CKD (chronic kidney disease), stage III: (7) Prostate cancer: (8) Bladder cancer: Plan: (1) Infection of prosthetic left knee joint: (2) Bacteremia: Possible Sepsis Plan: Patient is 78 y/o M with PMH HTN, HLD, CKD III, bladder cancer, prostate cancer s/p radiation seen in medical consultation for medical management. Was transfer from [facility] for left knee septic joint, bacteremia on preliminary blood cultures. [facility] ER 2 sets of blood cultures shows group G beta streptococcus Left knee synovial fluid: Group G beta strep Transthoracic echocardiogram does not show any vegetations Repeat blood cultureno growth till date 09/02 Medically stable Continue IV antibiotics per ID recommendations: Antibiotics changed to IV penicillin G 24 units(currently on 4 mu units every 4 hours). Patient to be discharged with continuous infusion. Discussed with case management. He will then require long life antibiotic suppression with PO amoxicillin 500 mg TID; to be started on October 05, 2023. Follow-up with ID as outpatient. Hyponatremia Likely SIADH Improving Sodium 129 On urea twice daily Lasix 20 mg IV twice daily Potassium twice daily Nephrology consulted, appreciate the recommendations (3) Left wrist pain: Plan: Patient complained of left wrist discomfort and some edema X-ray of left wrist shows soft tissue swelling. Also fifth PIP joint space narrowing reflective of osteoarthritis or inflammatory/erosive arthritis. Treatment per primary. Not worsening as per patient (4) HTN (hypertension): Plan: Elevated HCTZ held in light of hyponatremia Hydralazine 25 mg p.o. twice daily ordered Continue usual diltiazem, losartan Monitor closely (5) HLD (hyperlipidemia): Plan: Continue rosuvastatin (6) CKD (chronic kidney disease), stage III: Plan: Creatinine at baseline. Monitor renal functions, avoid nephrotoxic agents when able (7) Prostate cancer: (8) Bladder cancer: Plan: Follows with urology DVT Prophylaxis Aspirin Full Code as per discussion with pt Follows with Gladys Peres PA-C for routine care Admission and Anticipated Discharge Date Admission Date: August 22, 2023 Subjective Follow-up for infected left knee joint, bacteremia, hyponatremia etc. Seen resting in bed, sitting up, comfortable, not in distress States he feels okay overall Denies knee pain No fevers or chills No chest pain, palpitations, dizziness, etc. No other new symptoms Review of Systems Review of Systems: all noted and negative except for above Physical Exam Physical Exam: General- oriented x 3, not in distress, speaks in sentences with no effort or accessory muscle use Eyes- anicteric Neck- no JVD Lungs- clear breath sounds bilaterally, no rales/wheezes Heart- normal rate, regular rhythm; no murmurs Abdomen- normal bowel sounds, nondistended, soft, nontender Extremities-bilateral lower extremity edema, mild, no erythema/warmth/tenderness Neuro- alert, oriented x 3; no gross focal neurologic deficits Skin- warm & dry Results & Data Results & Data Vital Signs (Past 12 Hours) Vital Signs Temp Pulse Resp BP Pulse Ox O2 Del Method 09/02/23 07:38 36.9 C 84 16 172/73 H 92 Room Air (1) Infection of prosthetic left knee joint Encounter type: initial encounter Qualified Code(s): T84.54XA - Infection and inflammatory reaction due to internal left knee prosthesis, initial encounter
[2023-09-02] MEDS: ROSUVASTATIN CALCIUM 10 MG TAB PO SCH (21:27)
[2023-09-03] MEDS: DEXTROSE IV SCH ×6 (00:43→20:12)
[2023-09-03] MEDS: [UNRECOGNIZED DRUG - OTHER] IV SCH ×6 (00:43→20:12)
[2023-09-03] MEDS: oxyCODONE HCL IR 5 MG TAB (IMMEDIATE RELEASE) PO PRN ×2 (07:27→15:16)
[2023-09-03] MEDS: POTASSIUM CHLORIDE CRTAB 20 MEQ TABCR PO SCH ×2 (08:13→21:20)
[2023-09-03] MEDS: ASPIRIN 81 MG ECTAB PO SCH ×2 (08:14→21:19)
[2023-09-03] MEDS: dilTIAZem HCL 180 MG CAPCR PO SCH (08:14)
[2023-09-03] MEDS: LOSARTAN POTASSIUM 50 MG TAB PO SCH (08:15)
[2023-09-03] MEDS: DOCUSATE SODIUM/SENNA 50/8.6MG TAB PO SCH ×2 (08:15→21:19)
[2023-09-03] MEDS: ADVANCED PROBIOTIC 1250 MG CAPSULE PO SCH (08:16)
[2023-09-03] MEDS: hydrALAZINE HCL 25 MG TAB PO SCH ×2 (08:16→21:21)
[2023-09-03] MEDS: UREA (UREA-NA) 15 GM PACK PO SCH ×2 (08:16→21:19)
[2023-09-03 08:17] LABS: BUN Creatinine Ratio 35.2 (10-20); Creatinine Clr Calc Pharmacy 69.8 ml/min; Est GFR (African American) 94.7 ml/min; Est GFR (Non-African American) 81.7 ml/min; Potassium 4.6 mmol/L (3.5-5.1)
--- NOTE | 2023-09-03 08:54 | Orthopedic Progress Note ---
Date of Service September 03, 2023 Assessment & Plan (1) Streptococcus infection, group G: Plan: POD 11 s/p I/D poly change left TKA PT/OT protocols. WBAT. Gentle ROM. DVT prophylaxis - ASA po bid. SCD's Pain management as written DC planning - Plan for home with home health. The patient's antibiotics are set for the next 6 weeks. He will be on lifelong oral antibiotic suppression once the IV antibiotics are completed. Plan for 6 weeks of IV Penicillin G Pot 4mu IV q4h followed by Amoxicillin 500mg po tid. F/U with Dr Vanegas Sep 09. Nephrology consult completed. They are monitoring the sodium on a daily basis. As per there recommendations. Medicine has agreed to take the patient onto their service. DC home when ok with Med/Neph service. The patient will then follow-up with Dr. Vanegas as scheduled on 09.09.23. (2) Status post incision and drainage: Plan: See above Admission and Anticipated Discharge Date Admission Date: August 22, 2023 Subjective POD 13 Pt sitting up in bed awake, alert. No complaints this AM. Pain controlled. Physical Exam Physical Exam: Incision without drainage. Small area of eschar distally but no overt erythema. Swelling consistent with surgery. Calves soft NT. Results & Data Vital Signs (Past 12 Hours) Vital Signs Temp Pulse Resp BP Pulse Ox O2 Del Method 09/03/23 07:56 37.3 C 88 16 152/71 H 97 Room Air 09/02/23 21:02 36.9 C 81 16 136/66 94 Room Air 09/02/23 21:00 Room Air
[2023-09-03] MEDS: FUROSEMIDE INJ 20 MG/2 ML VIAL IV SCH (09:33)
--- NOTE | 2023-09-03 13:22 | Nephrology Progress Note ---
Date of Service September 03, 2023 Assessment & Plan (1) Hyponatremia: Plan: Patient with recent onset hyponatremia likely due to SIADH and prior hydrochlorothiazide use. Sodium has been fluctuating between high 120s to low 130s and remains there again today. Serum osmolality was 272 which is true hypoosmolar hyponatremia. No prior hx of OP hyponatremia; likely complicated by 600 mL/day D5W w/ ampicillin dosing for 6 wks -Will maintain the fluid limit of 1.5 L daily. -Will continue urea 15 g twice daily -Daily BMP -Will increase Lasix 20 mg > 30 mg IV daily to bid 17; change to po as below at d/c -continue already increased potassium chloride to 20 mEq twice daily -added fluid limit 1.5L daily OK to d/c home w/ close f/u from nephro standpoint NEPHRO D/C RECOMMENDATIONS -d/c on 1.5 L daily fluid limit toward which protein shakes do not count -d/c on urea 15 gm bid; may be able to wean this once off of ampicillin -d/c on lasix at 60 mg po bid17 -continue potassium chloride 20 mEq bid >[place] pt requesting home health draw above labs where possible >>pls coordinate -repeat BMP at pcp f/u w/in one week of hospital d/c >>to see Dr Sandoval for hospital d/c appt at [facility] w/in 1-2 wks of hospital d/c; he should have bmp, urine osms, serum osms, rd urine sodium obtained w/in 3 days of that OV; labs for this appt to be ordered by neph nurse in coordination w/ hospital d/c program planner -pls list hctz as drug intolerance / under allergy tab d/t hyponatremia; may be able to trial again after off of ampicillin however under nephro supervision >avoid all nsaids after d/c d/t hyponatremia and uncontrolled HTN >>pls have d/c coordinator work w/ pt on obtaining at least 30 days of urea 15 gm bid for use at d/c >> may take a few days to get this medication >> daughter already aware and ordering online Care coordinated w/ Dr Weber (2) Streptococcal bacteremia: Plan: Patient with infected left knee. He is status post washout of the prosthetic joint. He is receiving ampicillin per primary team; for home infusions x 6 wks (3) HTN (hypertension): Plan: Blood pressure is not controlled on current regimen. Patient to stop hydrochlorothiazide going forward even after discharge due to hyponatremia Admission and Anticipated Discharge Date Admission Date: August 22, 2023 Subjective no interval events clinically. ortho cleared for d/c from their standpoint w/ close in f/u. daughter and at bedside. pt w/ some pain; worries about arthritic pain in hands w/o nsaids. pt more tired today; overwhelmed w/ d/c planning Review of Systems 2 Review of Systems: All systems reviewed & are unremarkable except as noted in Subjective Physical Exam 2 Constitutional: well developed and well nourished (lying in bed on RA) Eyes: EOM intact bilaterally ENMT: Ears: no external ear abnormality Nose: no external nose abnormality Mouth: + dry oral mucous membranes Neck: no nuchal rigidity Respiratory: normal respiratory effort Auscultation: + diminished lung sounds Cardiovascular: Rate/Rhythm: regular rate and regular rhythm Extremities: + edema (LLE prox thigh and distally) Gastrointestinal (Abdomen): Inspection/Auscultation: normal bowel sounds P ercussion/Palpation: abdomen soft; abdomen nontender Musculoskeletal: Extremities: strength 5/5 throughout Skin: no rashes, warm and dry Psychiatric: Orientation: alert and oriented x 3 Results & Data Vital Signs (Past 12 Hours) Vital Signs Temp Pulse Resp BP Pulse Ox O2 Del Method 09/03/23 10:00 37 C 09/03/23 07:56 37.3 C 88 16 152/71 H 97 Room Air Laboratory Results 08/28/23 10:16 09/03/23 07:21
--- NOTE | 2023-09-03 15:03 | Hospitalist Progress Note ---
Date of Service September 03, 2023 Assessment & Plan (1) Infection of prosthetic left knee joint: (2) Bacteremia: (3) Left wrist pain: (4) HTN (hypertension): (5) HLD (hyperlipidemia): (6) CKD (chronic kidney disease), stage III: (7) Prostate cancer: (8) Bladder cancer: Plan: (1) Infection of prosthetic left knee joint: (2) Bacteremia: Patient is 78 y/o M with PMH HTN, HLD, CKD III, bladder cancer, prostate cancer s/p radiation seen in medical consultation for medical management. Was transfer from [facility] for left knee septic joint, bacteremia on preliminary blood cultures. [facility] ER 2 sets of blood cultures shows group G beta streptococcus Left knee synovial fluid: Group G beta strep Transthoracic echocardiogram does not show any vegetations Repeat blood cultureno growth till date Antibiotics changed to IV penicillin G 24 units(currently on 4 mu units every 4 hours). Patient to be discharged with continuous infusion. He will then require long life antibiotic suppression with PO amoxicillin 500 mg TID; to be started on October 05, 2023. Follow-up with ID as outpatient. Hyponatremia Likely SIADH Also likely due to Dextrose from penicillin infusion and HCTZ Sodium 129 On urea twice daily Lasix 20 mg IV twice daily Discussed with nephrology; recommend oral urea 15 g twice daily and Lasix 60 mg twice daily. Also 1500 cc fluid restriction (3) Left wrist pain: Plan: Patient complained of left wrist discomfort and some edema X-ray of left wrist shows soft tissue swelling. Also fifth PIP joint space narrowing reflective of osteoarthritis or inflammatory/erosive arthritis. Treatment per primary. Not worsening as per patient (4) HTN (hypertension): Plan: Elevated HCTZ held in light of hyponatremia Continue usual diltiazem, losartan Monitor closely (5) HLD (hyperlipidemia): Plan: Continue rosuvastatin (6) CKD (chronic kidney disease), stage III: Plan: Creatinine at baseline. Monitor renal functions, avoid nephrotoxic agents when able (7) Prostate cancer: (8) Bladder cancer: Plan: Follows with urology DVT Prophylaxis Aspirin Full Code Follows with Gladys Peres PA-C for routine care Discussed with patient's daughter at bedside. Answered questions/queries. Time spent evaluating patient, direct bedside care, chart review, placing orders, interpretation of diagnostic studies, discussion with consultants, patient, and family members, as well as other required patient management activities is 50 minutes Admission and Anticipated Discharge Date Admission Date: August 22, 2023 Subjective Patient seen and examined at bedside. He is lying in the bed comfortably; not in any distress. Denies fever, chills, chest pain or shortness of breath. Vital stable. Review of Systems Review of Systems: All systems reviewed & are unremarkable except as noted in Subjective Physical Exam Physical Exam: Constitutional: WD/WN, vitals as above, NAD, sitting up in bed, pleasant, conversing easily Respiratory: Bilateral vesicular breath sound. Cardiovascular: RRR, no murmur, no edema Vessels: no JVD or carotid bruit Chest: normal inspection of chest Abdomen: normal bowel sounds, soft, nontender, no hepatosplenomegaly Musculoskeletal: Left knee on bandages; no overlying soakage Skin: no rashes, warm and dry normal turgor Neurologic: PERRL, EOMI, accommodation nl, no face palsy, no dysarthria CN's II- XI intact bilaterally and moves all extremities Psychiatric: A+Ox3, euthymic affect Results & Data Results & Data Vital Signs (Past 12 Hours) Vital Signs Temp Pulse Resp BP Pulse Ox O2 Del Method 09/03/23 10:00 37 C 09/03/23 07:56 37.3 C 88 16 152/71 H 97 Room Air (1) Infection of prosthetic left knee joint Encounter type: initial encounter Qualified Code(s): T84.54XA - Infection and inflammatory reaction due to internal left knee prosthesis, initial encounter
[2023-09-03] MEDS: FUROSEMIDE 40 MG/4 ML VIAL IV SCH (17:40)
[2023-09-03] MEDS: ROSUVASTATIN CALCIUM 10 MG TAB PO SCH (21:20)
[2023-09-04] MEDS: DEXTROSE IV SCH ×4 (00:13→12:29)
[2023-09-04] MEDS: [UNRECOGNIZED DRUG - OTHER] IV SCH ×4 (00:13→12:29)
--- NOTE | 2023-09-04 06:59 | Orthopedic Progress Note ---
Date of Service September 04, 2023 Assessment & Plan (1) Streptococcus infection, group G: Plan: POD 12 s/p I/D poly change left TKA PT/OT protocols. WBAT. Gentle ROM. DVT prophylaxis - ASA po bid. SCD's Pain management as written DC planning - Plan for home with home health. The patient's antibiotics are set for the next 6 weeks. He will be on lifelong oral antibiotic suppression once the IV antibiotics are completed. Plan for 6 weeks of IV Penicillin G Pot 4mu IV q4h followed by Amoxicillin 500mg po tid. F/U with Dr Vanegas Sep 09. Nephrology consult completed. They are monitoring the sodium on a daily basis. As per there recommendations. Medicine has agreed to take the patient onto their service. DC home when ok with Med/Neph service. The patient will then follow-up with Dr. Vanegas as scheduled on 09.09.23. DC jaswinder today (2) Status post incision and drainage: Plan: See above Admission and Anticipated Discharge Date Admission Date: August 22, 2023 Subjective Patient seen and examined at bedside. He is lying in the bed comfortably; not in any distress. Denies fever, chills, chest pain or shortness of breath. Vital stable. Physical Exam Physical Exam: ginna dressing is off incision looks benign jaswinder are clean and dry there is scant bloody drainage at the inferior portion of the incision the knee is much calmer and less swollen. Patient can passively flex to 75 to 80 degrees at the bedside Results & Data Vital Signs (Past 12 Hours) Vital Signs Temp Pulse Resp BP Pulse Ox O2 Del Method 09/03/23 20:23 37.0 C 84 16 141/66 H 94 Room Air
[2023-09-04 08:38] LABS: BUN Creatinine Ratio 40.7 (10-20); Calcium 9.4 mg/dl (8.6-10.3); Creatinine Clr Calc Pharmacy 67.5 ml/min; Est GFR (African American) 92.6 ml/min; Est GFR (Non-African American) 79.9 ml/min; Potassium 4.1 mmol/L (3.5-5.1)
[2023-09-04] MEDS: dilTIAZem HCL 180 MG CAPCR PO SCH (09:16)
[2023-09-04] MEDS: DOCUSATE SODIUM/SENNA 50/8.6MG TAB PO SCH (09:16)
[2023-09-04] MEDS: hydrALAZINE HCL 25 MG TAB PO SCH (09:16)
[2023-09-04] MEDS: POTASSIUM CHLORIDE CRTAB 20 MEQ TABCR PO SCH (09:17)
[2023-09-04] MEDS: LOSARTAN POTASSIUM 50 MG TAB PO SCH (09:17)
[2023-09-04] MEDS: ADVANCED PROBIOTIC 1250 MG CAPSULE PO SCH (09:17)
[2023-09-04] MEDS: ASPIRIN 81 MG ECTAB PO SCH (09:18)
[2023-09-04] MEDS: UREA (UREA-NA) 15 GM PACK PO SCH (09:19)
[2023-09-04] MEDS: FUROSEMIDE 40 MG/4 ML VIAL IV SCH (09:52)
[2023-09-04] MEDS: oxyCODONE HCL IR 5 MG TAB (IMMEDIATE RELEASE) PO PRN (15:05)
--- NOTE | 2023-09-04 15:39 | Hospitalist Progress Note ---
Date of Service September 04, 2023 Assessment & Plan (1) Infection of prosthetic left knee joint: (2) Bacteremia: (3) Left wrist pain: (4) HTN (hypertension): (5) HLD (hyperlipidemia): (6) CKD (chronic kidney disease), stage III: (7) Prostate cancer: (8) Bladder cancer: Plan: (1) Infection of prosthetic left knee joint: (2) Bacteremia: Patient is 78 y/o M with PMH HTN, HLD, CKD III, bladder cancer, prostate cancer s/p radiation seen in medical consultation for medical management. Was transfer from [facility] for left knee septic joint, bacteremia on preliminary blood cultures. [facility] ER 2 sets of blood cultures shows group G beta streptococcus Left knee synovial fluid: Group G beta strep Transthoracic echocardiogram does not show any vegetations Repeat blood cultureno growth till date Antibiotics changed to IV penicillin G 24 units(currently on 4 mu units every 4 hours). Patient to be discharged with continuous infusion. He will then require long life antibiotic suppression with PO amoxicillin 500 mg TID; to be started on October 05, 2023. Follow-up with ID as outpatient. Hyponatremia Likely SIADH Also likely due to Dextrose from penicillin infusion and HCTZ Sodium 129 On urea twice daily Lasix 20 mg IV twice daily Discussed with nephrology; recommend oral urea 15 g twice daily and Lasix 60 mg twice daily Also 1500 cc fluid restriction HCTZ discontinued Left wrist pain Patient complained of left wrist discomfort and some edema X-ray of left wrist shows soft tissue swelling. Also fifth PIP joint space narrowing reflective of osteoarthritis or inflammatory/erosive arthritis. Treatment per primary Not worsening as per patient HTN (hypertension) HCTZ held in light of hyponatremia Continue usual diltiazem, losartan Monitor closely HLD (hyperlipidemia) Continue rosuvastatin CKD (chronic kidney disease), stage III Creatinine at baseline Monitor renal functions, avoid nephrotoxic agents when able Prostate cancer Bladder cancer Follows with urology DVT Prophylaxis Aspirin Full Code Follows with Gladys Peres PA-C for routine care Discussed with patient's daughter at bedside. Answered questions/queries. Patient seen in collaboration with Dr. Weber. Please see addendum. Admission and Anticipated Discharge Date Admission Date: August 22, 2023 Supervising Physician Co-Signing Physician Notes Patient seen and examined independently. Discussed with over provider. Patient to be discharged home with home health. Nephrology recommends Lasix 60 mg twice daily and oral urea. Follow-up with PCP at discharge. Subjective Seen and examined in 376 bed 1. Feeling well today, no acute events overnight. Denies any pain in the knee. No fever, chills, lightheadedness, headache, chest pain, shortness of breath, nausea, vomiting, abdominal pain, dysuria, diarrhea or constipation. Coordinated for discharge today with nephrology, infectious disease, Ortho follow-up. Review of Systems Review of Systems: At least ten systems reviewed and negative except as noted in the HPI. Physical Exam Physical Exam: Constitutional: WD/WN, vitals as above, NAD, pleasant, conversing easily Respiratory: Bilateral vesicular breath sound. Cardiovascular: RRR, no murmur, no edema Vessels: no JVD or carotid bruit Chest: normal inspection of chest Abdomen: normal bowel sounds, soft, nontender, no hepatosplenomegaly Musculoskeletal: Left knee with jaswinder; no drainage, non-tender Skin: no rashes, warm and dry normal turgor Neurologic: PERRL, EOMI, accommodation nl, no face palsy, no dysarthria CN's II- XI intact bilaterally and moves all extremities Psychiatric: A+Ox3, euthymic affect Results & Data Results & Data Vital Signs (Past 12 Hours) Vital Signs Temp Pulse Resp BP Pulse Ox O2 Del Method 09/04/23 09:15 86 145/63 H 09/04/23 07:00 36.8 C 81 16 154/69 H 93 Room Air Laboratory Results [facility] 09/04/23 07:07 Sodium 130 L Potassium 4.1 Chloride 94 L Carbon Dioxide 29 BUN 37 H Creatinine 0.91 Glucose 100 H Calcium 9.4 Diagnostic Findings Wrist X-Ray 08/22/23 18:48 XR wrist LT min 3V routine CLINICAL HISTORY: Left wrist pain following fall. COMPARISON: None FINDINGS: No acute fracture is identified. There is widening of the scapholunate interval which measures 1 cm. Extensive chondrocalcinosis is noted. There is severe joint space narrowing within the left first carpometacarpal and triscaphe joints. There is also moderate radiocarpal joint space narrowing. Subchondral cyst within the distal left radius and on are benign. Severe joint space narrowing with osseous irregularity of the left fifth PIP joint is present. There is left wrist soft tissue swelling. IMPRESSION: 1. No acute fracture within the left wrist. Left wrist soft tissue swelling. 2. Significant widening of the scapholunate interval with severe degenerative changes of the left wrist and chondrocalcinosis. The findings suggest scapholunate advanced collapse. 3. Left fifth PIP joint space narrowing with osseous irregularity. This could reflect erosive osteoarthritis or an inflammatory/erosive arthritis. ACT 112: Negative or not required by law. Electronically signed by: Zach Arceo M.D. 08/23/2023 8:16 AM Chest X-Ray 08/26/23 13:51 XR chest 1V portable CLINICAL HISTORY: Right PICC Tip COMPARISON STUDY: Chest radiograph October 27, 2009 FINDINGS: Tip of the right PICC projects over the cavoatrial junction. There is mild cardiomegaly without evidence for pulmonary edema. No pneumothorax. Trace left pleural effusion is noted. Linear left basilar densities favor atelectasis or scarring. IMPRESSION: 1. Tip of right PICC projects over the cavoatrial junction. 2. Trace left pleural effusion. Subsegmental left basilar atelectasis. ACT 112: Negative or not required by law. Electronically signed by: Zach Arceo M.D. 08/26/2023 2:20 PM (1) Infection of prosthetic left knee joint Encounter type: initial encounter Qualified Code(s): T84.54XA - Infection and inflammatory reaction due to internal left knee prosthesis, initial encounter
[2023-09-04] MEDS ORDERED: UREA (UREA-NA) 15 GM PACK PO SCH (21:00)
--- NOTE | 2023-09-05 12:42 | Discharge Summary ---
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 He had done well and was seen in the office and was without complaints. He presented the day prior to the emergency room in [place] with confusion and falls. A workup was completed and the physicians noticed that his knee was swollen and warm. He was a febrile but had a swollen warm knee and as part of his workup the knee was aspirated. It returned turbid fluid with 40,000 white blood cells 98% neutrophils and a CRP of 180. He was then treated for presumptive acute postoperative infection started on antibiotics and we were called he has been transferred to [facility] for definitive care Admission Exam Per Admitting Provider Physical Exam: General: Patient appears to be his stated age HEENT: NCAT, EOMI, PERRLA Neck without bruits Heart regular rate and rhythm no murmurs Lungs breath sounds clear and present in all [place] Abdomen: Flat soft nontender bowel sounds positive Extremities the knee is swollen and warm there is a Band-Aid at the puncture site there is pain with range of motion. Neurological and vascular intact Principal Diagnosis Septic left TKA Discharge Data Allergies Allergy/AdvReac Type Severity Reaction Status Date / Time hydrochlorothiazide AdvReac Intermediate hyponatremi Verified 09/04/23 15:22 a Consultations 08/22/23 15:57 Consult Internal Medicine Routine 08/22/23 20:59 Consult Infectious Diseases Routine 08/30/23 16:24 Consult Nephrology Routine Procedures Performed Operation Date: 08/23/23 07:30 Actual Procedures p Poly Exchange - Calderon Vanegas MD s Left Knee: Incision and Drainage, (Left) - Calderon Vanegas MD Hospital Course (1) Streptococcus infection, group G: patient was admitted on 08/23/2023 with the above noted septic left TKA. Cultures have been taken through aspirate of the left knee at [facility] prior to admission. At that time cultures were showing group G streptococcal infection. Patient had then transferred to [facility] and was admitted. He was taken to the operating room by Dr. Angel Vanegas on the same day and had the above-noted procedure performed which she tolerated well. The irrigation and debridement and polyethylene bearing change went well and patient tolerated it well. Patient was started on vancomycin and Zosyn initially for coverage until further cultures that were done in the operating room would be finalized. [facility] hospitalist was consulted for medical management and continue to follow the patient during his stay. Consult was placed for infectious disease team from [facility] and they awaited culture results which ended up being the same group G beta strep. In the meantime, the patient has been started on physical therapy and Occupational Therapy protocols and continued on DVT prophylaxis and pain management. Hemovac drain was eventually discontinued and the patient was maintained with a kirill dressing which continue to function well. Infectious disease team weighed in and discontinued the vancomycin and Zosyn and started the patient on penicillin G IV 24,000,000 units daily. plans were for the patient to go to an inpatient rehab however later on in his stay family was hoping that he can come home with home health services. He was slowly improving with his physical therapy and remaining stable. Plans were then changed for home health services. Patient then developed hyponatremia during his stay which she was followed by the [facility] medical service as well as nephrology. he was treated accordingly and remained in the hospital for another several days. He was otherwise remaining stable and continued to progress slowly with his physical therapy. He showed improvement with his hyponatremia and nephrology felt that he was medically stable for discharge. He continued me orthopedically and medically stable. Dr. Vanegas saw the patient on the morning of and noted that the wound is benign. It was time for the jaswinder to be removed and this was ordered and done per nursing staff. He was otherwise remaining stable and was felt that he be discharged to home with home health services and IV antibiotics. (2) Status post incision and drainage: See above Total Time Total Time Spent Total Time Spent (In Minutes): 15 Discharge Plan Discharge Items Patient Disposition: Home - Home Health Services Reason For Visit: LEFT SEPTIC TKA Discharge Diagnosis: Left Septic TKA Activity: Per Instructions section Lifting: None Weightbearing: Full weightbearing Non-emergency contact: Surgeon Call non-emergency contact if: you have any medication questions, your pain is not controlled, your temperature is above 101.5, your wound has increased redness and your wound has increased drainage Follow-up/Referrals: Calderon Vanegas MD [Surgeon] - 09/09/23 12:30 pm (Follow up with Dr. Vanegas or his PA in 2 weeks from the day of your surgery. ) Gladys Peres PA-C [Primary Care Provider] - 09/08/23 3:00 pm (Date & Time 09/08/2023 3:00 PM Provider Gladys Peres PA-C [facility] ) Rhoda Vital MD [Physician] - (Follow up in 6 weeks with ID team.) Diet: Heart Healthy Addtl Attending Provider Instructions: You will continue PT and OT while at Rehab. You will switch to PT only when discharged from the Rehab hospital Gentle ROM only. Maintain KIRILL Dressing at this time. If dressing becomes saturated or begins draining, replace with a regular 4 x 4 dressing with ABDs and Kole wrap. You will be on an antibiotic for a total of 6 weeks through an IV called a PICC line. This will be maintained by the rehab facility staff as well as home health nursing once you are discharged from rehab. Along with this, he will have weekly blood draws done at the rehab facility and after home by the home health services. Results will be sent to Dr. Vanegas. Any changes to your antibiotic will be done by Dr. Vanegas or the infectious disease team. ACTIVITY RECOMMENDATIONS: SELF CARE INSTRUCTIONS AFTER TOTAL KNEE REPLACEMENT A. You may need to continue a physical therapy program after discharge from the hospital. There are several options available to you. Your doctor will assist you in selecting the best one for you. 1. An out-patient facility 2 to 3 times a week for therapy or home therapy. 2. Continue working on all exercises taught to you in the hospital. Your goals should be to increase bending of your knee to 90 degrees and beyond and to fully straighten your knee. B. You may progress at your own pace from walking with a walker or crutches to a cane; then to no assistive devices. C. Make walking a part of your daily routine. Be up as much as comfortable with rest periods throughout the day. Rest with leg elevation is very important. Use the ice wrap frequently for the first 3-4 weeks.. D. Wear the long elastic stockings (JELANI hose) 20 hours a day for 2 weeks after surgery. They can be removed several times a day for laundering and for a bath. F. You may shower, no tub baths until cleared by your doctor. SPECIAL CARE INSTRUCTIONS: VERY IMPORTANT TO READ AND REVIEW A. There are a few signs you need to watch for after you are home. Call [facility] if you notice any of the followin. Increased severe knee pain. Some pain is expected especially when you exercise. 2. Increased swelling in your leg or knee; pain or swelling of the calf muscle in either lower leg. 3. Any fluid drainage from the incision. 4. Shortness of breath or chest pain. B. Please call [facility] at if you have any concerns or questions about your operation or recovery. The doctor or his nurse will return your call promptly. IMPORTANT: * REMEMBER TO TAKE ASPIRIN, 81 MG, TWICE DAILY FOR 4 WEEKS UNLESS OTHERWISE DIRECTED. THIS IS YOUR BLOOD THINNER. * CALL IF INCREASED PAIN, REDNESS, DRAINAGE OR FEVER GREATER THAT 101. * WEAR JELANI HOSE 20 HOURS PER DAY FOR 2 WEEKS. . FOLLOW UP VISIT: If appointment is not already scheduled: Please call [facility] to make a follow-up appointment for 2 weeks after your surgery at . Addtl Ccie Provider Instructions: Internal medicine instructions: Nephrology( Dr. Jarrell) recommended oral Urea 15mg twice daily for low sodium. Also, recommended Lasix 60 mg twice daily. Also fluid restriction of 1500 cc/ 24 hours. Hydrochlorothiazide discontinued for now per nephrology. Blood cultures growing Group G beta strep. Transthoracic echocardiogram does not show any vegetations. [facility] 2 sets of blood cultures shows group G beta streptococcus. Repeat blood cultureno growth to date. Antibiotics changed to IV penicillin G 24 units(currently on 4 mu units every 4 hours). Patient to be discharged with continuous infusion. He will then require long life antibiotic suppression with PO amoxicillin 500 mg TID; to be started on October 05, 2023. Will have follow-up with primary care doctor, nephrology and infectious disease as listed above. Pending Studies at Discharge: No Stand-Alone Forms: My [employer], Smoking Cessation Medications and DC Order Prescriptions: New acetaminophen 500 mg capsule 1,000 mg PO Q8H 14 Days Qty: 84 0RF aspirin [Ecotrin Low Strength] 81 mg tablet,delayed release (DR/EC) 81 mg PO BID 30 Days Qty: 60 0RF penicillin G potassium 5 million unit recon soln 4 mmu IM Q4H 40 Days Qty: 10 0RF polyethylene glycol 3350 [Miralax] 17 gram powder in packet 17 g PO DAILY PRN (Reason: constipation) Qty: 5 0RF amoxicillin 500 mg capsule 500 mg PO TID 30 Days Qty: 90 0RF Rx Instructions: DO NOT START MEDICATION UNTIL IV MEDICATION HAS BEEN DISCONTINUED IN 6 WEEKS. oxycodone 5 mg tablet 5 mg PO Q4H MDD 6 PRN (Reason: pain) Qty: 30 0RF furosemide [Lasix] 40 mg tablet 60 mg PO BID Qty: 60 0RF Continued diltiazem HCl 360 mg capsule,extended release 24hr 360 mg PO DAILY losartan 100 mg tablet 100 mg PO DAILY rosuvastatin 10 mg tablet 10 mg PO HS dvnamela-sti-ekmpg-vit K-lycop 400-20-300 mcg Tablet 1 tab PO DAILY Discontinued hydrochlorothiazide 25 mg tablet 25 mg PO DAILY naproxen 500 mg tablet 500 mg PO BID PRN (Reason: Pain) aspirin 81 mg Capsule,Delayed Release(Dr/Ec) 81 mg PO DAILY Discharge Orders: Discharge Order (Routine); Ordered 09/04/23 Ordered By: Calderon Crane/Other Patient Handouts: Limiting Fluids Dc, ED Knee Immobilizer Admission Data Admit Date/Time: 08/22/23 15:37 Attending Provider: Calderon Vanegas Admit Provider: Calderon Vanegas Primary Care Provider: Gladys Peres Other Providers: Nata Dewitt; Getachew Parnell; Alexandra Arce; Valentin Mckeon I.; Jaya Redding II; Kamala Willis; Xu Sagastume; Fabian Steven; Rhoda Vital; Juli [facility] [employer]; [facility]; Jennifer Kebede; Wilbur Weber; Aleja Mckeon; [facility] Other Interventions: Discharge Summary Assessment (RN) Last Done: 09/04/23 14:07
== END 2023-09-04 16:16 | disposition home health service (06) | DRG 485 ==
LOC: 3N 17:48